=== PATIENT | male | born 1935 | race Caucasian/White ===

== ENCOUNTER → 2017-08-23 08:03 | Outpatient (CLI) | payer OTHER, SELFPAY ==
[2017-08-23 08:15] LABS: Bacteria Urine None Seen; RBC Urine None Seen (0-5/HPF); WBC Urine None Seen (0-5/HPF)
[2017-08-23 09:08] LABS: Add Manual Diff / Slide Review NO; Basophils Percent Auto 0.7 % (0-2); Eosinophils Percent Auto 7.5 % (2-4); Hematocrit 34.1 % (41-53); Hemoglobin 11.3 g/dL (13.5-17.5); Lymphocytes Percent Auto 28.9 % (25-40); Mean Corpuscular Hemoglobin 31.2 PG (26-34); Mean Corpuscular Volume 94.4 fL (80-100); Monocytes Percent Auto 15.7 % (3-14); Neutrophils Absolute Auto 1900 /uL (3000-5900); Neutrophils Percent Auto 47.2 % (50-75); Platelet Count 139 X10^3/uL (150-400); Red Blood Cell Count 3.61 X10^6/uL (4.5-5.9); White Blood Cell Count 4.1 X10^3/uL (4.5-11.0)
[2017-08-23 09:23] LABS: Alanine Aminotransferase 27 IU/L (21-72); Albumin 3.4 g/dL (3.5-5.0); Albumin Globulin Ratio 1.1 (1.0-2.8); Alkaline Phosphatase 67 U/L (38-126); Aspartate Aminotransferase 35 IU/L (17-59); BUN Creatinine Ratio 22.4 (6-22); Bilirubin Total 0.5 mg/dL (0.2-1.3); Blood Urea Nitrogen 65 mg/dL (9-20); Calcium 9.1 mg/dL (8.4-10.2); Carbon Dioxide 24 mmol/L (22-32); Chloride 106 mmol/L (98-107); Estimated Glomerular Filt Rate 20.9 mL/min (>60); Glucose 84 mg/dL (80-110); HEMOLYSIS < 15 (0-50); Phosphorous 4.1 mg/dL (2.3-3.7); Potassium 5.1 mmol/L (3.4-5.1); Sodium 142 mmol/L (137-145); Total Protein 6.4 g/dL (6.3-8.2)
[2017-08-23 09:37] LABS: Vitamin D 25 Hydroxy (D3) 51.7 ng/mL (30.0-100.0)
[2017-08-23 09:53] LABS: Appearance Urine UA CLEAR; Bilirubin Urine UA NEGATIVE (NEGATIVE); Color Urine UA YELLOW; Glucose Urine UA NEGATIVE (Normal); Ketones Urine UA NEGATIVE (NEGATIVE); Leukocyte Esterase Urine UA NEGATIVE (NEGATIVE); Nitrite Urine UA Negative (Negative); Occult Blood Urine UA NEGATIVE (Negative); Protein Urine UA NEGATIVE (Negative); Urobilinogen Urine UA 0.2 E.U./dL (0.2); pH Urine UA 5.5 (4.5-8.0)
[2017-08-23 10:01] LABS: Culture Indicated Urine Cult Not Indicated; Urine Comments Microscopic Normal
[2017-08-23 10:31] LABS: Creatinine Urine Random 76.1 mg/dL; Protein (Total) Urine Random 14 mg/dL (0-12); Protein Creatinine Ratio Urine 0.18 GRAM/24H
== END ==
PROVIDERS: PCP Family Medicine; Visit Provider Specialist
DX: N18.4 Chronic kidney disease, stage 4 (severe) (principal); N11.0 Nonobstructive reflux-associated chronic pyelonephritis; E78.2 Mixed hyperlipidemia; N25.0 Renal osteodystrophy; D63.1 Anemia in chronic kidney disease
CPT/HCPCS: 36415; 80053; 81001; 82306; 82570; 84100; 84156; 85025

== ENCOUNTER → 2017-09-08 13:07 | Outpatient (CLI) | payer OTHER, SELFPAY ==
--- NOTE | 2017-09-08 13:13 | DI.US.S_ITS ---
PROCEDURE: US RENAL COMPLETE INDICATIONS: CHRONIC KIDNEY DISEASE TECHNIQUE: Real-time scanning was performed of the kidneys and bladder, with image documentation. COMPARISON: [facility], , RENAL COMPLETE, 06/21/2014, 9:58. FINDINGS: Kidneys: Kidneys are normal in size. Right kidney measures 10.0 cm long; left kidney measures 10.5 cm long. Right renal cortical thickness is 1.8 cm; left renal cortical thickness is 1.4 cm. Renal cortical echotexture is normal. No hydronephrosis or nephrolithiasis. No suspicious solid mass lesions. Bladder: Pre-void bladder volume is 164 mL. Post-void residual is zero mL. Pre-void images demonstrate no intraluminal masses or stones. On pre-void images, no ureteral jets are noted with color Doppler interrogation. (Of note, ureteral jets may not be detectable in up to 25% of cases due to insufficient differences in specific gravity between ureteral and bladder urine). Miscellaneous: No free pelvic fluid. IMPRESSION: 1. Kidneys appear normal in size, cortical thickness and cortical medullary differentiation. No obstruction. 2. No post voiding bladder residual. Dictated by: Rogerio Hollingsworth M.D. on 09/08/2017 at 15:22 Approved by: Rogerio Hollingsworth M.D. on 09/08/2017 at 15:24
[2017-09-08 14:39] LABS: BUN Creatinine Ratio 22.8 (6-22); Blood Urea Nitrogen 57 mg/dL (9-20); Calcium 9.2 mg/dL (8.4-10.2); Carbon Dioxide 24 mmol/L (22-32); Chloride 104 mmol/L (98-107); Estimated Glomerular Filt Rate 24.8 mL/min (>60); Glucose 189 mg/dL (80-110); HEMOLYSIS < 15 (0-50); Sodium 139 mmol/L (137-145)
== END ==
PROVIDERS: PCP Family Medicine; Visit Provider Specialist
DX: N18.4 Chronic kidney disease, stage 4 (severe) (principal); D63.1 Anemia in chronic kidney disease; I12.9 Hypertensive chronic kidney disease with stage 1 through stage 4 chronic kidney disease, or unspecified chronic kidney disease; E78.2 Mixed hyperlipidemia; N25.0 Renal osteodystrophy
CPT/HCPCS: 36415; 76770; 80048

== ENCOUNTER → 2017-10-12 09:54 | Outpatient (CLI) | payer OTHER, SELFPAY ==
[2017-10-12 10:59] LABS: Hematocrit 33.9 % (41-53); Hemoglobin 11.5 g/dL (13.5-17.5); Mean Corpuscular HGB Conc 33.8 % (30-36); Mean Corpuscular Volume 94.6 fL (80-100); Red Blood Cell Count 3.59 X10^6/uL (4.5-5.9); Red Cell Distribution Width 16.3 % (11.6-14.8)
[2017-10-12 11:06] LABS: Add Manual Diff / Slide Review YES
[2017-10-12 11:09] LABS: Alanine Aminotransferase 24 IU/L (21-72); Albumin 3.3 g/dL (3.5-5.0); Albumin Globulin Ratio 1.2 (1.0-2.8); Alkaline Phosphatase 60 U/L (38-126); Aspartate Aminotransferase 57 IU/L (17-59); BUN Creatinine Ratio 20.4 (6-22); Bilirubin Total 0.7 mg/dL (0.2-1.3); Blood Urea Nitrogen 49 mg/dL (9-20); Calcium 8.7 mg/dL (8.4-10.2); Carbon Dioxide 24 mmol/L (22-32); Chloride 104 mmol/L (98-107); Globulin 2.8 g/dL (1.7-4.1); Glucose 89 mg/dL (80-110); Phosphorous 3.6 mg/dL (2.3-3.7); Potassium 4.7 mmol/L (3.4-5.1); Sodium 137 mmol/L (137-145); Total Protein 6.1 g/dL (6.3-8.2)
[2017-10-12 11:11] LABS: HEMOLYSIS 78 (0-50)
[2017-10-12 11:26] LABS: Vitamin D 25 Hydroxy (D3) 54.5 ng/mL (30.0-100.0)
[2017-10-12 11:52] LABS: Neutrophils Absolute Manual 2950 /uL (3000-5900); Total Cells Counted 100
[2017-10-12 11:55] LABS: Anisocytosis 1+
[2017-10-12 11:56] LABS: Platelet Count 145 X10^3/uL (150-400)
== END ==
PROVIDERS: PCP Family Medicine; Visit Provider Specialist
DX: N18.4 Chronic kidney disease, stage 4 (severe) (principal); D63.1 Anemia in chronic kidney disease; E78.2 Mixed hyperlipidemia; N25.0 Renal osteodystrophy
CPT/HCPCS: 36415; 80053; 82306; 83970; 84100; 85025

== ENCOUNTER → 2017-11-18 10:47 | Outpatient (CLI) | payer OTHER, SELFPAY ==
[2017-11-18 11:44] LABS: Add Manual Diff / Slide Review NO; Basophils Percent Auto 0.6 % (0-2); Eosinophils Percent Auto 3.8 % (2-4); Hematocrit 33.7 % (41-53); Hemoglobin 11.2 g/dL (13.5-17.5); Lymphocytes Percent Auto 16.5 % (25-40); Mean Corpuscular HGB Conc 33.2 % (30-36); Mean Corpuscular Hemoglobin 31.5 PG (26-34); Mean Corpuscular Volume 95.1 fL (80-100); Monocytes Percent Auto 11.1 % (3-14); Neutrophils Absolute Auto 3300 /uL (3000-5900); Platelet Count 168 X10^3/uL (150-400); Red Blood Cell Count 3.54 X10^6/uL (4.5-5.9); Red Cell Distribution Width 16.6 % (11.6-14.8); White Blood Cell Count 4.9 X10^3/uL (4.5-11.0)
[2017-11-18 11:55] LABS: Alanine Aminotransferase 29 IU/L (21-72); Albumin 3.5 g/dL (3.5-5.0); Albumin Globulin Ratio 1.2 (1.0-2.8); Alkaline Phosphatase 67 U/L (38-126); Aspartate Aminotransferase 30 IU/L (17-59); BUN Creatinine Ratio 15.8 (6-22); Bilirubin Total 0.6 mg/dL (0.2-1.3); Blood Urea Nitrogen 38 mg/dL (9-20); Carbon Dioxide 26 mmol/L (22-32); Chloride 106 mmol/L (98-107); Globulin 2.9 g/dL (1.7-4.1); Glucose 111 mg/dL (80-110); HEMOLYSIS < 15 (0-50); Phosphorous 4.1 mg/dL (2.3-3.7); Potassium 4.5 mmol/L (3.4-5.1); Sodium 141 mmol/L (137-145); Total Protein 6.4 g/dL (6.3-8.2)
[2017-11-18 12:09] LABS: Vitamin D 25 Hydroxy (D3) 53.1 ng/mL (30.0-100.0)
== END ==
PROVIDERS: PCP Family Medicine; Visit Provider Specialist
DX: N18.4 Chronic kidney disease, stage 4 (severe) (principal); D63.1 Anemia in chronic kidney disease; E78.2 Mixed hyperlipidemia; N25.0 Renal osteodystrophy; I10 Essential (primary) hypertension
CPT/HCPCS: 36415; 80053; 82306; 83970; 84100; 85025

== ENCOUNTER → 2017-11-19 09:29 | Outpatient (CLI) | payer OTHER, SELFPAY ==
[2017-11-23 14:52] LABS: Parathyroid Hormone Int 114 pg/mL (14-64)
== END ==
PROVIDERS: PCP Family Medicine; Visit Provider Specialist
DX: N18.4 Chronic kidney disease, stage 4 (severe) (principal); D63.1 Anemia in chronic kidney disease; E78.2 Mixed hyperlipidemia
CPT/HCPCS: 83970

== ENCOUNTER → 2017-12-06 10:30 | Outpatient (CLI) | payer OTHER, SELFPAY ==
[2017-12-06 11:01] LABS: Add Manual Diff / Slide Review NO; Basophils Percent Auto 0.6 % (0-2); Hematocrit 33.4 % (41-53); Hemoglobin 11.2 g/dL (13.5-17.5); Lymphocytes Percent Auto 23.6 % (25-40); Mean Corpuscular HGB Conc 33.4 % (30-36); Mean Corpuscular Hemoglobin 31.7 PG (26-34); Neutrophils Absolute Auto 2000 /uL (3000-5900); Neutrophils Percent Auto 51.8 % (50-75); Platelet Count 147 X10^3/uL (150-400); Red Blood Cell Count 3.52 X10^6/uL (4.5-5.9); Red Cell Distribution Width 16.1 % (11.6-14.8); White Blood Cell Count 3.9 X10^3/uL (4.5-11.0)
[2017-12-06 11:33] LABS: Alanine Aminotransferase 27 IU/L (21-72); Albumin 3.7 g/dL (3.5-5.0); Albumin Globulin Ratio 1.3 (1.0-2.8); Alkaline Phosphatase 61 U/L (38-126); Aspartate Aminotransferase 37 IU/L (17-59); BUN Creatinine Ratio 22.6 (6-22); Bilirubin Total 0.5 mg/dL (0.2-1.3); Blood Urea Nitrogen 52 mg/dL (9-20); Calcium 9.6 mg/dL (8.4-10.2); Carbon Dioxide 30 mmol/L (22-32); Chloride 105 mmol/L (98-107); Estimated Glomerular Filt Rate 27.4 mL/min (>60); Globulin 2.9 g/dL (1.7-4.1); Glucose 118 mg/dL (80-110); HEMOLYSIS < 15 (0-50); Phosphorous 4.2 mg/dL (2.3-3.7); Potassium 4.7 mmol/L (3.4-5.1); Sodium 146 mmol/L (137-145); Total Protein 6.6 g/dL (6.3-8.2)
[2017-12-06 11:49] LABS: Vitamin D 25 Hydroxy (D3) 59.5 ng/mL (30.0-100.0)
[2017-12-08 13:52] LABS: Parathyroid Hormone Int 93 pg/mL (14-64)
[2017-12-09 13:06] LABS: Hemoglobin A1C% w Est Avg Glu 6.4 % (4.0-6.0)
== END ==
PROVIDERS: PCP Family Medicine; Visit Provider Specialist
DX: D63.1 Anemia in chronic kidney disease (principal); N18.4 Chronic kidney disease, stage 4 (severe); E78.2 Mixed hyperlipidemia; N25.0 Renal osteodystrophy
CPT/HCPCS: 36415; 80053; 82306; 83036; 83970; 84100; 85025

== ENCOUNTER → 2017-12-13 12:29 | Outpatient (CLI) | payer OTHER, SELFPAY ==
[2017-12-13 13:15] LABS: Hemoglobin A1C% w Est Avg Glu 6.4 % (4.0-6.0)
== END ==
PROVIDERS: PCP Family Medicine; Visit Provider Family Medicine
DX: E11.9 Type 2 diabetes mellitus without complications (principal)
CPT/HCPCS: 36415; 83036

== ENCOUNTER → 2018-04-29 11:09 | Outpatient (CLI) | payer OTHER, SELFPAY ==
[2018-04-29 11:29] LABS: Bacteria Urine None Seen; RBC Urine None Seen (0-5/HPF); WBC Urine None Seen (0-5/HPF)
[2018-04-29 12:14] LABS: Add Manual Diff / Slide Review NO; Basophils Absolute Auto 0 /uL (0-100); Basophils Percent Auto 0.5 % (0-2); Eosinophils Absolute Auto 200 /uL (0-450); Eosinophils Percent Auto 5.7 % (2-4); Hemoglobin 11.8 g/dL (13.5-17.5); Lymphocytes Absolute Auto 900 /uL (1100-4500); Lymphocytes Percent Auto 22.7 % (25-40); Mean Corpuscular HGB Conc 33.8 % (30-36); Mean Corpuscular Hemoglobin 31.5 PG (26-34); Mean Corpuscular Volume 93.1 fL (80-100); Monocytes Absolute Auto 500 /uL (0-900); Monocytes Percent Auto 13.3 % (3-14); Neutrophils Absolute Auto 2300 /uL (1500-7000); Neutrophils Percent Auto 57.8 % (50-75); Platelet Count 140 X10^3/uL (150-400); Red Blood Cell Count 3.76 X10^6/uL (4.5-5.9); Red Cell Distribution Width 15.5 % (11.6-14.8); White Blood Cell Count 3.9 X10^3/uL (4.5-11.0)
[2018-04-29 12:21] LABS: Hemoglobin A1C% w Est Avg Glu 7.8 % (4.0-6.0)
[2018-04-29 12:35] LABS: HEMOLYSIS < 15 (0-50); Iron 94 ug/dL (49-181)
[2018-04-29 12:38] LABS: Alanine Aminotransferase 28 IU/L (21-72); Albumin 3.9 g/dL (3.5-5.0); Albumin Globulin Ratio 1.3 (1.0-2.8); Alkaline Phosphatase 71 U/L (38-126); Aspartate Aminotransferase 36 IU/L (17-59); BUN Creatinine Ratio 23.6 (6-22); Bilirubin Total 0.5 mg/dL (0.2-1.3); Blood Urea Nitrogen 52 mg/dL (9-20); Calcium 9.2 mg/dL (8.4-10.2); Carbon Dioxide 27 mmol/L (22-32); Chloride 102 mmol/L (98-107); Estimated Glomerular Filt Rate 28.8 mL/min (>60); Globulin 2.9 g/dL (1.7-4.1); Glucose 123 mg/dL (80-110); HEMOLYSIS < 15 (0-50); Phosphorous 4.3 mg/dL (2.3-3.7); Potassium 4.3 mmol/L (3.4-5.1); Sodium 139 mmol/L (137-145); Total Protein 6.8 g/dL (6.3-8.2)
[2018-04-29 12:46] LABS: Percent Iron Saturation 30 % (20-50); Total Iron Binding Capacity 314 ug/dL (261-462); Transferrin 251 mg/dL (206-381)
[2018-04-29 13:12] LABS: Ferritin 38.3 ng/mL (17.9-464)
[2018-04-29 13:55] LABS: Appearance Urine UA CLEAR; Bilirubin Urine UA NEGATIVE (NEGATIVE); Color Urine UA YELLOW; Glucose Urine UA NEGATIVE (Negative); Ketones Urine UA NEGATIVE (NEGATIVE); Leukocyte Esterase Urine UA NEGATIVE (NEGATIVE); Nitrite Urine UA NEGATIVE (Negative); Occult Blood Urine UA TRACE-LYSED (Negative); Protein Urine UA 2+ (Negative); Specific Gravity Urine UA 1.015 (1.000-1.035); Urobilinogen Urine UA 0.2 E.U./dL (0.2)
[2018-04-29 14:06] LABS: Culture Indicated Urine Cult Not Indicated; Urine Comments Microscopic Normal
[2018-04-29 16:41] LABS: Creatinine Urine Random 72.1 mg/dL; Protein (Total) Urine Random 95 mg/dL (0-12); Protein Creatinine Ratio Urine 1.31 GRAM/24H
[2018-04-30 14:20] LABS: Parathyroid Hormone Int 122 pg/mL (14-64)
== END ==
PROVIDERS: PCP Family Medicine; Visit Provider Specialist
DX: N18.4 Chronic kidney disease, stage 4 (severe) (principal); E78.2 Mixed hyperlipidemia; N25.0 Renal osteodystrophy; D63.1 Anemia in chronic kidney disease
CPT/HCPCS: 36415; 80053; 81001; 82306; 82570; 82728; 83036; 83540; 83550; 83970; 84100; 84156; 85025

== ENCOUNTER → 2018-08-09 11:29 | Outpatient (CLI) | payer OTHER, SELFPAY ==
[2018-08-09 12:52] LABS: Add Manual Diff / Slide Review NO; Basophils Absolute Auto 0 /uL (0-100); Basophils Percent Auto 0.7 % (0-2); Eosinophils Absolute Auto 300 /uL (0-450); Eosinophils Percent Auto 6.4 % (2-4); Hematocrit 33.5 % (41-53); Hemoglobin 11.3 g/dL (13.5-17.5); Lymphocytes Absolute Auto 800 /uL (1100-4500); Lymphocytes Percent Auto 19.3 % (25-40); Mean Corpuscular HGB Conc 33.8 % (30-36); Mean Corpuscular Hemoglobin 32.2 PG (26-34); Mean Corpuscular Volume 95.2 fL (80-100); Monocytes Absolute Auto 600 /uL (0-900); Monocytes Percent Auto 14.3 % (3-14); Neutrophils Absolute Auto 2500 /uL (1500-7000); Neutrophils Percent Auto 59.3 % (50-75); Platelet Count 136 X10^3/uL (150-400); Red Blood Cell Count 3.52 X10^6/uL (4.5-5.9); Red Cell Distribution Width 15.5 % (11.6-14.8); White Blood Cell Count 4.1 X10^3/uL (4.5-11.0)
[2018-08-09 13:08] LABS: Appearance Urine UA CLEAR; Bilirubin Urine UA NEGATIVE (NEGATIVE); Color Urine UA YELLOW; Glucose Urine UA NEGATIVE (Negative); Ketones Urine UA NEGATIVE (NEGATIVE); Leukocyte Esterase Urine UA NEGATIVE (NEGATIVE); Nitrite Urine UA NEGATIVE (Negative); Occult Blood Urine UA TRACE-INTACT (Negative); Protein Urine UA 2+ (Negative); Urobilinogen Urine UA 0.2 E.U./dL (0.2); pH Urine UA 6.5 (4.5-8.0)
[2018-08-09 13:16] LABS: HEMOLYSIS < 15 (0-50); Iron 91 ug/dL (49-181)
[2018-08-09 13:22] LABS: Amorphous Sediment Urine 1+; Bacteria Urine Occasional (0-1); Mucus Urine 1+ (Negative); RBC Urine 0-1/HPF (0-5/HPF); Squamous Epithelial Cell Urine 1-5 /HPF (0-5/HPF); WBC Urine 1-5/HPF (0-5/HPF)
[2018-08-09 13:23] LABS: Culture Indicated Urine Cult Not Indicated
[2018-08-09 13:30] LABS: Percent Iron Saturation 30 % (20-50); Total Iron Binding Capacity 301 ug/dL (261-462); Transferrin 223 mg/dL (206-381)
[2018-08-09 14:38] LABS: Hemoglobin A1C% w Est Avg Glu 7.5 % (4.0-6.0)
[2018-08-09 16:19] LABS: Creatinine Urine Random 64.2 mg/dL; Protein (Total) Urine Random 124 mg/dL (0-12); Protein Creatinine Ratio Urine 1.93 GRAM/24H
[2018-08-09 16:52] LABS: Alanine Aminotransferase 20 IU/L (21-72); Albumin 3.7 g/dL (3.5-5.0); Albumin Globulin Ratio 1.3 (1.0-2.8); Alkaline Phosphatase 72 U/L (38-126); Aspartate Aminotransferase 31 IU/L (17-59); BUN Creatinine Ratio 20.5 (6-22); Bilirubin Total 0.6 mg/dL (0.2-1.3); Blood Urea Nitrogen 43 mg/dL (9-20); Calcium 9.3 mg/dL (8.4-10.2); Carbon Dioxide 29 mmol/L (22-32); Chloride 106 mmol/L (98-107); Estimated Glomerular Filt Rate 30.3 mL/min (>60); Globulin 2.8 g/dL (1.7-4.1); Glucose 129 mg/dL (80-110); HEMOLYSIS < 15 (0-50); Phosphorous 3.6 mg/dL (2.3-3.7); Potassium 4.6 mmol/L (3.4-5.1); Sodium 142 mmol/L (137-145); Total Protein 6.5 g/dL (6.3-8.2)
[2018-08-09 17:26] LABS: Vitamin D 25 Hydroxy (D3) 40.8 ng/mL (30.0-100.0)
[2018-08-09 17:27] LABS: Ferritin 45.3 ng/mL (17.9-464)
[2018-08-10 13:54] LABS: Parathyroid Hormone Int 129 pg/mL (14-64)
== END ==
PROVIDERS: Family Provider Family Medicine; PCP Family Medicine; Visit Provider Specialist
DX: E11.22 Type 2 diabetes mellitus with diabetic chronic kidney disease (principal); N18.4 Chronic kidney disease, stage 4 (severe); E78.2 Mixed hyperlipidemia; N25.0 Renal osteodystrophy; D63.1 Anemia in chronic kidney disease
CPT/HCPCS: 36415; 80053; 81001; 82306; 82570; 82728; 83036; 83540; 83550; 83970; 84100; 84156; 85025

== ENCOUNTER → 2018-10-10 14:25 | Outpatient (CLI) | payer OTHER, SELFPAY ==
[2018-10-10 15:25] LABS: BUN Creatinine Ratio 20.5 (6-22); Blood Urea Nitrogen 45 mg/dL (9-20); Calcium 8.9 mg/dL (8.4-10.2); Carbon Dioxide 26 mmol/L (22-32); Chloride 105 mmol/L (98-107); Estimated Glomerular Filt Rate 28.7 mL/min (>60); Glucose 158 mg/dL (80-110); HEMOLYSIS < 15 (0-50); Potassium 4.5 mmol/L (3.4-5.1); Sodium 139 mmol/L (137-145)
== END ==
PROVIDERS: Family Provider Family Medicine; PCP Family Medicine; Visit Provider Specialist
DX: N18.4 Chronic kidney disease, stage 4 (severe) (principal); D63.1 Anemia in chronic kidney disease; E78.2 Mixed hyperlipidemia; N25.0 Renal osteodystrophy
CPT/HCPCS: 36415; 80048

== ENCOUNTER → 2018-10-14 15:02 | Outpatient (CLI) | payer OTHER, SELFPAY ==
--- NOTE | 2018-10-14 15:06 | DI.RAD.S_ITS ---
PROCEDURE: XR CHEST 2V INDICATIONS: WHEEZING,EDEMA OF LOWER EXTREMITY,SOB TECHNIQUE: 2 views of the chest were acquired. COMPARISON: [facility], , CHEST 1 VIEW, 06/20/2014, 16:53. FINDINGS: Surgical changes and devices: None. Lungs and pleura: Low lung volumes with scattered subsegmental atelectasis/scarring. No pleural effusions or pneumothorax. Mediastinum: Mediastinal contours are normal. Heart size is normal. Bones and chest wall: No suspicious bony abnormalities. Soft tissues appear unremarkable. IMPRESSION: No acute disease Dictated by: Vamshi Flores M.D. on 10/14/2018 at 16:43 Approved by: Vamshi Flores M.D. on 10/14/2018 at 16:44
== END ==
PROVIDERS: Family Provider Family Medicine; PCP Family Medicine; Visit Provider Family Medicine
DX: R06.02 Shortness of breath (principal); R06.00 Dyspnea, unspecified; R06.2 Wheezing; R60.0 Localized edema
CPT/HCPCS: 36415; 71046; 80053; 83880; 85025

== ENCOUNTER → 2018-10-14 17:42 | Outpatient (CLI) | payer OTHER, SELFPAY ==
[2018-10-14 18:10] LABS: Add Manual Diff / Slide Review NO; Basophils Absolute Auto 0 /uL (0-100); Basophils Percent Auto 0.5 % (0-2); Eosinophils Absolute Auto 300 /uL (0-450); Eosinophils Percent Auto 6.5 % (2-4); Hematocrit 33.3 % (41-53); Hemoglobin 11.1 g/dL (13.5-17.5); Lymphocytes Absolute Auto 900 /uL (1100-4500); Lymphocytes Percent Auto 20.1 % (25-40); Mean Corpuscular HGB Conc 33.3 % (30-36); Mean Corpuscular Hemoglobin 31.8 PG (26-34); Mean Corpuscular Volume 95.6 fL (80-100); Monocytes Absolute Auto 700 /uL (0-900); Monocytes Percent Auto 15.2 % (3-14); Neutrophils Absolute Auto 2600 /uL (1500-7000); Neutrophils Percent Auto 57.7 % (50-75); Platelet Count 146 X10^3/uL (150-400); Red Blood Cell Count 3.48 X10^6/uL (4.5-5.9); Red Cell Distribution Width 15.9 % (11.6-14.8); White Blood Cell Count 4.5 X10^3/uL (4.5-11.0)
[2018-10-14 18:21] LABS: Alanine Aminotransferase 18 IU/L (21-72); Albumin 3.6 g/dL (3.5-5.0); Albumin Globulin Ratio 1.3 (1.0-2.8); Alkaline Phosphatase 76 U/L (38-126); Aspartate Aminotransferase 25 IU/L (17-59); BUN Creatinine Ratio 18.7 (6-22); Bilirubin Total 0.4 mg/dL (0.2-1.3); Blood Urea Nitrogen 43 mg/dL (9-20); Calcium 9.3 mg/dL (8.4-10.2); Carbon Dioxide 27 mmol/L (22-32); Chloride 107 mmol/L (98-107); Estimated Glomerular Filt Rate 27.3 mL/min (>60); Globulin 2.8 g/dL (1.7-4.1); Glucose 160 mg/dL (80-110); HEMOLYSIS < 15 (0-50); Sodium 141 mmol/L (137-145); Total Protein 6.4 g/dL (6.3-8.2)
[2018-10-14 18:22] LABS: Potassium 5.4 mmol/L (3.4-5.1)
[2018-10-14 18:26] LABS: B Type Natriuretic Peptide 121 (<100)
== END ==
PROVIDERS: Family Provider Family Medicine; PCP Family Medicine; Visit Provider Family Medicine
DX: R06.00 Dyspnea, unspecified (principal)
CPT/HCPCS: 36415; 80053; 83880; 85025

== ENCOUNTER → 2018-11-03 07:53 | Outpatient (CLI) | payer OTHER, SELFPAY ==
--- NOTE | 2018-11-03 07:56 | DI.ECHO.S_ITS ---
[place] [facility]---------+ [facility] +---------+ : : [address] : : : : [id number] : : : : Phone: [phone]+ Echocardiogram Report + + :Name: LUIS ALBERTO DE LA ROSA Study Date: 11/03/2018 Height: 72 in : :[facility] Exam Location: [facility] Weight: 280 lb : : Gender: Male BSA: 2.5 m2 : :: 1935 Age: 83 yrs BP: 136/60 mmHg: :Reason For Study: CHF : : Performed By: Anil Antonio : :Referring: AISHWARYA MARCELINO : + + Interpretation Summary 1) Normal left ventricular thickness, size, wall motion, and systolic function (EF 60-65%). 2) Normal right ventricular size and function. 3) No significant valvular stenosis or regurgitation. 4) Compared to the Echo done 01/12/2012, no significant change. Procedure: A two-dimensional transthoracic echocardiogram with color flow and Doppler was performed. The study quality was technically adequate. Comparison is made with the echocardiogram of 01/12/12. The subcostal views were difficult to obtain and are suboptimal in quality. The suprasternal notch views were difficult to obtain and are suboptimal in quality. The patient was in normal sinus rhythm during the exam. Left Ventricle: The left ventricle is normal in size. There is normal left ventricular wall thickness. The ejection fraction is estimated to be 60-65%. There are no focal wall motion abnormalities. Right Ventricle: The right ventricle is at the upper limits of normal in size. The right ventricular systolic function is normal. Atria: The left atrium is mildly dilated. Right atrial size is normal. The interatrial septum is intact with no evidence for an atrial septal defect. Mitral Valve: There is mild mitral annular calcification. A mobile structure is noted on the mitral valve chordae measuring approximately 5 mm x 12 mm. This was also seen on the last exam. There is trace mitral regurgitation. Aortic Valve: The aortic valve is trileaflet. The aortic valve is mildly calcified. There is discrete nodular thickening of the non- coronary cusp. There is no aortic valve stenosis. No aortic regurgitation is present. Tricuspid Valve: The tricuspid valve is normal in structure and function. There is trace tricuspid regurgitation. Right ventricular systolic pressure is estimated to be 21 mmHg plus the clinically estimated CVP which cannot be estimated on this exam. Pulmonic Valve: The pulmonic valve is normal in structure and function. There is trace pulmonic regurgitation. Great Vessels: The aortic root is normal size. The ascending aorta is at the upper limits of normal in size. The pulmonary artery is normal size. The inferior vena cava was not well visualized. Pericardium/ Pleura There is no pericardial effusion. There is no pleural effusion. MMode/2D Measurements & Calculations LVIDd: 5.2 cm LVOT diam: 2.4 cm LVIDs: 3.3 cm Ao root diam: 3.2 cm FS: 35.1 % Aortic Jxn: 2.9 cm EPSS: 0.90 cm asc Aorta Diam: 3.5 cm IVSd: 1.1 cm LVPWd: 1.0 cm LV becerra. diameter/BSA (cm/m^2): 2.1 LV sys. diameter/BSA (cm/m^2): 1.4 LA dimension: 4.8 cm RA long axis: 5.8 cm LA A2 area: 27.1 cm2 RA area: 22.8 cm2 LA A4 area: 27.3 cm2 RA vol: 75.9 ml LA length (vol): 6.8 cm RA : 30.9 ml/m2 LA vol: 92.8 ml LA vol index: 37.8 ml/m2 RVD1 (basal): 4.0 cm RVD2 (mid): 4.5 cm Doppler Measurements & Calculations Ao V2 max: 168.2 cm/sec LVOT Max Galen: 120.5 cm/sec Ao V2 mean: 122.4 cm/sec LV V1 max P.8 mmHg Ao max P.3 mmHg LV V1 VTI: 28.8 cm Ao mean P.6 mmHg ROMAN(I,D): 3.0 cm2 Ao V2 VTI: 43.4 cm ROMAN(V,D): 3.2 cm2 sev ratio: 0.66 ROMAN indexed to BSA (cm^2/m^2): 1.2 MV E max galen: 130.7 cm/sec TR max galen: 229.0 cm/sec MV A max galen: 141.0 cm/sec TR max P.0 mmHg MV E/A: 0.93 PA V2 max: 114.9 cm/sec Med Peak E' Galen: 5.7 cm/sec PA V2 mean: 90.2 cm/sec E/E' med: 23.0 PA mean P.4 mmHg Lat Peak E' Galen: 8.6 cm/sec PA pr(Accel): 19.1 mmHg E/E' lat: 15.1 PA Accel Time: 0.12 sec E/e' average: 19.1 MV dec time: 0.19 sec SV(LVOT): 130.5 ml Reading Physician:02:32 PM
== END ==
PROVIDERS: Family Provider Family Medicine; PCP Family Medicine; Visit Provider Family Medicine
DX: R06.00 Dyspnea, unspecified (principal)
CPT/HCPCS: 93306

== ENCOUNTER → 2018-11-07 12:50 | Outpatient (CLI) | payer OTHER, SELFPAY ==
--- NOTE | 2018-11-11 16:39 | PM.PFT.1 ---
Pulmonary Function Test Referral & Results Date Patient Seen: 11/07/18 Requesting provider: Jeremiah Kiser Results: The spirometry demonstrates an FVC of 2.19 L which is 57% of predicted. The FEV1 was measured at 1.61 L which is 56% of predicted. The FEV1/FVC ratio was 73 which is 100% of predicted. Following the administration of bronchodilator there was a 47% improvement in FEF 25-75%. Lung volumes show an SVC of 2.45 L which is 68% of predicted. The diffusing capacity was measured at 16.34 which is 43% of predicted. The maximum voluntary ventilation was reduced Interpretation: This study demonstrates moderate obstructive lung disease with limited evidence of benefit after bronchodilator, particularly small airway flow based on improvement in FEF 25-75% There is also mild reduction in lung volumes suggesting mild restrictive lung disease There is also significant reduction in diffusing capacity suggesting significant disease at the capillary alveolar level
== END ==
PROVIDERS: Family Provider Family Medicine; PCP Family Medicine; Visit Provider Family Medicine
DX: R06.02 Shortness of breath (principal)
CPT/HCPCS: 94060; 94726; 94729

== ENCOUNTER → 2018-11-17 14:01 | Outpatient (CLI) | payer OTHER, SELFPAY ==
--- NOTE | 2018-11-17 14:05 | DI.CT.S_ITS ---
PROCEDURE: CT CHEST HIGH RESOLUTION INDICATIONS: new dyspnea, PFTs show mixed obstruct/restriction w low DLCO TECHNIQUE: Noncontrast 1.0 and 5.0 mm thick contiguous axial sections from the pulmonary apex to the posterior costophrenic angles, with 7 mm thick coronal and sagittal MIP reformats. 1 mm thick dynamic expiratory images acquired through the upper, mid, and lower lungs. 1.0 mm thick axial sections acquired from the ashleigh to the posterior costophrenic angles in the prone end-inspiration position. For radiation dose reduction, the following was used: automated exposure control, adjustment of mA and/or kV according to patient size. COMPARISON: [facility], CR, CHEST 2 VIEW, 10/25/2013, 13:54. [facility], , CHEST 1 VIEW, 01/11/2012, 14:43. [facility], , CHEST 1 VIEW, 06/20/2014, 16:53. [facility], CR, XR CHEST 2 VIEWS, 11/11/2017, 11:43. FINDINGS: Image quality: Excellent. Lungs: Minimal linear atelectasis in each lung base, greater on the left than the right associated with chronic mild elevation of the left hemidiaphragm Pleura: No pleural effusions or pneumothorax. Mediastinum: Heart size is normal. No pericardial effusion. Thoracic aorta and central pulmonary arteries are normal in size. Esophagus is normal in caliber. Bones and chest wall: No suspicious bony lesions. No vertebral body compression fractures. Abdomen: Visualized upper abdominal solid organs and bowel loops appear normal. IMPRESSION: No interstitial lung disease is found, no pulmonary fibrosis is identified. There is mild basilar atelectasis seen, left greater than right, associated with asymmetric mild elevation of the left hemidiaphragm. Dictated by: Travis Garcia M.D. on 11/17/2018 at 16:42 Approved by: Travis Garcia M.D. on 11/17/2018 at 16:44
== END ==
PROVIDERS: Family Provider Family Medicine; PCP Family Medicine; Visit Provider Family Medicine
DX: R06.00 Dyspnea, unspecified (principal); J98.11 Atelectasis
CPT/HCPCS: 71250

== ENCOUNTER → 2018-12-08 14:11 | Outpatient (CLI) | payer OTHER, SELFPAY ==
[2018-12-08 14:45] LABS: Add Manual Diff / Slide Review NO; Basophils Absolute Auto 0 /uL (0-100); Basophils Percent Auto 0.7 % (0-2); Eosinophils Absolute Auto 300 /uL (0-450); Eosinophils Percent Auto 7.3 % (2-4); Hematocrit 34.9 % (41-53); Hemoglobin 11.7 g/dL (13.5-17.5); Lymphocytes Absolute Auto 900 /uL (1100-4500); Lymphocytes Percent Auto 21.1 % (25-40); Mean Corpuscular HGB Conc 33.5 % (30-36); Mean Corpuscular Hemoglobin 32.2 PG (26-34); Mean Corpuscular Volume 96.1 fL (80-100); Monocytes Absolute Auto 600 /uL (0-900); Neutrophils Absolute Auto 2400 /uL (1500-7000); Neutrophils Percent Auto 56.9 % (50-75); Platelet Count 147 X10^3/uL (150-400); Red Blood Cell Count 3.63 X10^6/uL (4.5-5.9); Red Cell Distribution Width 15.2 % (11.6-14.8); White Blood Cell Count 4.3 X10^3/uL (4.5-11.0)
[2018-12-08 15:30] LABS: Alanine Aminotransferase 22 IU/L (21-72); Albumin 3.7 g/dL (3.5-5.0); Albumin Globulin Ratio 1.3 (1.0-2.8); Alkaline Phosphatase 74 U/L (38-126); Aspartate Aminotransferase 28 IU/L (17-59); Bilirubin Total 0.6 mg/dL (0.2-1.3); Blood Urea Nitrogen 60 mg/dL (9-20); Calcium 9.5 mg/dL (8.4-10.2); Carbon Dioxide 30 mmol/L (22-32); Chloride 99 mmol/L (98-107); Estimated Glomerular Filt Rate 24.8 mL/min (>60); Globulin 2.9 g/dL (1.7-4.1); Glucose 154 mg/dL (80-110); HEMOLYSIS < 15 (0-50); Phosphorous 3.9 mg/dL (2.3-3.7); Potassium 4.6 mmol/L (3.4-5.1); Sodium 140 mmol/L (137-145); Total Protein 6.6 g/dL (6.3-8.2)
[2018-12-08 15:49] LABS: Vitamin D 25 Hydroxy (D3) 56.7 ng/mL (30.0-100.0)
[2018-12-10 14:43] LABS: Parathyroid Hormone Int 185 pg/mL (14-64)
== END ==
PROVIDERS: Family Provider Family Medicine; PCP Family Medicine; Visit Provider Specialist
DX: N18.4 Chronic kidney disease, stage 4 (severe) (principal); D63.1 Anemia in chronic kidney disease; E78.2 Mixed hyperlipidemia; N25.0 Renal osteodystrophy
CPT/HCPCS: 36415; 80053; 82306; 83970; 84100; 85025

== ENCOUNTER 2019-04-08 20:15 | Emergency (ER) | payer OTHER, SELFPAY ==
--- NOTE | 2019-04-08 20:34 | ED_ITS ---
HPI - General Adult General Chief complaint: GI Bleed Stated complaint: Blood in his stool,ulcer history Time Seen by Provider: 04/08/19 20:25 Source: patient Mode of arrival: Ambulatory Limitations: no limitations History of Present Illness HPI narrative: 83-year-old male with a history of insulin-dependent diabetes also has a history of gastric ulcers here for evaluation of 1-2 days of black/dark colored stools. No pain with bowel movements. No vomiting. Does not drink alcohol. No use of nonsteroidal anti-inflammatories. Does have a history of hemorrhoids. States that he has had a colonoscopy in the past but was 10-15 years ago. No abdominal pain. Related Data Home Medications Medication Instructions Recorded Confirmed [[facility]] #0 09/11/16 03/21/19 oxybutynin chloride 5 mg tablet 5 mg PO BID PRN 01/07/18 03/21/19 garlic 1,000 mg capsule 1,000 mg PO QPC 04/13/18 03/21/19 ferrous sulfate 324 mg (65 mg 324 mg PO DAILY tab 09/20/18 03/21/19 iron) tablet,delayed release doxycycline hyclate 100 mg capsule 100 mg PO BID 12/20/18 03/21/19 albuterol sulfate 90 mcg/actuation 2 puff INHALATION Q4-6H PRN gram 03/21/19 03/21/19 aerosol inhaler insulin NPH isoph U-100 human 100 See Rx Instructions SUBCUT DAILY 03/21/19 03/21/19 unit/mL subcutaneous suspension vial tiotropium bromide 2.5 2 puff INHALATION DAILY 03/21/19 03/21/19 mcg/actuation mist for inhalation Previous Rx's Medication Instructions Recorded aspirin 81 mg PO QDAY #30 tab 08/31/16 cholecalciferol (vitamin D3) 2,000 unit PO QDAY #30 cap 08/31/16 [Vitamin D3] diclofenac sodium [Voltaren] 1 tank TOPICAL BID #100 gm 08/31/16 pyridoxine (vitamin B6) 100 mg PO QDAY #30 tab 08/31/16 Lancets ea SEE INSTRUCTIONS #100 12/16/16 Syringes #100 each 07/22/17 fluticasone propionate [Flonase 1 spray INTRANASAL QDAY #1 bot 09/13/17 Allergy Relief] BD insulin pen needle UF short #100 each 12/06/17 Glucose: Test Strips-onetouch See Rx Instructions .ROUTE 02/25/18 .COMPLEX #150 amlodipine 2.5 mg tablet 2.5 mg PO DAILY #90 tab 09/20/18 fexofenadine 180 mg tablet 180 mg PO DAILY PRN #30 tab 09/27/18 inhalational spacing device #1 each 10/18/18 ipratropium bromide 0.03 % nasal 1 spray NASAL BEDTIME #30 ml 10/18/18 spray spirometers and accessories #1 each 10/18/18 carvedilol 25 mg tablet 25 mg PO BID #60 tab 10/28/18 torsemide 20 mg tablet 40 mg PO QAM #60 tab 11/08/18 famotidine [Pepcid] 20 mg PO DAILY #30 tab 04/08/19 Allergies Allergy/AdvReac Type Severity Reaction Status Date / Time metolazone [METOLAZONE] Allergy Severe VERY DIZZY Unverified 03/21/19 13:21 morphine [MORPHINE] Allergy Unknown UNKNOWN Unverified 03/21/19 13:21 Penicillins [PENICILLINS] Allergy Unknown UNKNOWN Unverified 03/21/19 13:21 NSAIDS (Non-Steroidal AdvReac Severe RENAL Unverified 03/21/19 13:21 Anti-Inflamma INSUFF [NSAIDS (NON-STEROIDAL ANTI-INFLAMMA] Review of Systems Constitutional Constitutional: Denies fever(s) and Denies headache(s) ENT Ears, Nose, Mouth, and Throat: Denies headache(s) Cardiovascular Cardiovascular: Denies chest pain and Denies dyspnea Respiratory Respiratory: Denies dyspnea Gastrointestinal Gastrointestinal: Denies abdominal pain, Reports melena, Denies hematochezia, Denies nausea and Denies vomiting Genitourinary Genitourinary: Denies dysuria Musculoskeletal Musculoskeletal: Denies myalgias and Denies arthralgias Neurologic Neurologic: Denies behavioral changes and Denies headache(s) Psychiatric Psychiatric: Denies behavioral changes Hematologic/Lymphatic Hematologic/Lymphatic: Denies easy bleeding and Denies easy bruising Patient History Medical History Anemia (Chronic 2009) Diabetes mellitus (Chronic 1997) Diabetic nephropathy (Chronic) Foot pain (Chronic 2002) Gastric ulcer (Resolved 1966) Hearing loss (Chronic 1935) Hypertension (Chronic) Infectious disease (Resolved 2011) Kidney failure (Chronic) Lumbar spine pain (Chronic) Osteomyelitis (Resolved 2011) Peripheral neuropathy (Chronic 2002) Prostate cancer (Resolved 1998) Urinary incontinence (Chronic) Social History Smoking Status: Former smoker Tobacco: How many years used: 30 Smoking Status: Former smoker (average 1 1/2 PPD) Exam Initial Vital Signs Initial Vital Signs: Vital Signs Temperature 98.6 F 04/08/19 20:40 Pulse Rate 65 04/08/19 20:40 Respiratory Rate 16 04/08/19 20:40 Blood Pressure 159/73 H 04/08/19 20:40 Pulse Oximetry 96 04/08/19 20:40 Const General: cooperative and comfortable HENMT Head: normal to inspection and normocephalic Resp Effort & Inspection: normal respiratory effort Auscultation: clear to auscultation bilaterally Cardio Rate: regular rate Rhythm: regular rhythm GI Inspection: non-distended Palpation: soft and No firm Rectal Exam: No abnormal sphincter tone, heme positive stool and No hemorrhoids Neuro General: alert, awake and oriented x3 Cognition: normal cognition Speech: speech normal Extrem General: normal to inspection and capillary refill normal Psych Appearance: grossly normal Course Orders Ordered: ED Orders 04/08/19 21:30 Basic Metabolic Panel Stat Complete Blood Count AUTO DIFF Stat Discontinued Medications Pantoprazole Sodium (Protonix) 40 mg IV NOW ONE Stop: 04/08/19 20:52 Last Admin: 04/08/19 21:32 Dose: 40 mg Documented by: SAPPHIRE Vital Signs Vital signs: Vital Signs - 8 hr 04/08/19 20:40 04/08/19 21:38 Temperature 98.6 F Pulse Rate 65 78 Respiratory Rate 16 Blood Pressure 159/73 H Blood Pressure [Left Arm] 140/62 Pulse Oximetry 96 96 Medical Decision Making Lab Data Lab results reviewed: Yes I reviewed the patient's lab results. Result diagrams: 04/08/19 21:30 04/08/19 21:30 Labs: Lab Results 04/08/19 04/08/19 Range/Units 21:30 21:30 WBC 4.9 (4.5-11.0) X10^3/uL RBC 3.55 L (4.5-5.9) X10^6/uL Hgb 11.4 L (13.5-17.5) g/dL Hct 33.7 L (41-53) % MCV 94.9 (80-100) fL MCH 32.0 (26-34) PG MCHC 33.8 (30-36) % RDW 15.5 H (11.6-14.8) % Plt Count 163 (150-400) X10^3/uL Neut % (Auto) 60.1 (50-75) % Lymph % (Auto) 15.7 L (25-40) % [place] % (Auto) 17.1 H (3-14) % Eos % (Auto) 6.4 H (2-4) % Baso % (Auto) 0.7 (0-2) % Neut # (Auto) 2900 (7953-3404) /uL Lymph # (Auto) 800 L (1949-3641) /uL [place] # (Auto) 800 (0-900) /uL Eos # (Auto) 300 (0-450) /uL Baso # (Auto) 0 (0-100) /uL Sodium 140 (137-145) mmol/L Potassium 4.2 (3.4-5.1) mmol/L Chloride 106 (98-107) mmol/L Carbon Dioxide 25 (22-32) mmol/L BUN 64 H (9-20) mg/dL Creatinine 2.60 H (0.66-1.25) mg/dL Estimated GFR 23.7 L (>60) mL/min BUN/Creatinine Ratio 24.6 H (6-22) Glucose 223 H (80-110) mg/dL Calcium 9.2 (8.4-10.2) mg/dL Point of Care Testing Stool Occult Blood Negative Point of care testing: Point of Care Testing Stool Occult Blood Negative [facility] Narrative Medical decision making narrative: Creatinine is at baseline, patient is slightly anemic when also at baseline. He was weakly Hemoccult positive. Her no alcohol use. No anti-inflammatory use. What he describes is somewhat concerning for upper GI issue. He did recently start some antibiotics for cellulitis in his lower extremities. Not on anticoagulation. He is also going to hold his aspirin. Was given a prescription for Pepcid. He will start taking this. On Wednesday is going to contact his primary doctor about a referral to see GI for further evaluation. He was given return precautions and follow-up instructions. No indication for emergent GI/surgery intervention. Patient expressed understanding and agreement with plan. Discharge Plan Departure Patient Disposition: Home Clinical Impression: Melena Discharge Date/Time: 04/08/19 22:00 Instructions: DI for Gastric Ulcer, Gastrointestinal Bleeding Activity Restrictions/Additional Instructions: Recommend that on Wednesday you contact your primary doctor's office to discuss the referral to have a endoscopy and colonoscopy. Start taking the Pepcid as directed. Also recommend you take the antibiotics with food. Return to the emergency department for any new or worsening symptoms Prescriptions: New famotidine [Pepcid] 20 mg tablet 20 mg PO DAILY Qty: 30 RF: 0 No Action ferrous sulfate 324 mg (65 mg iron) tablet,delayed release (DR/EC) 324 mg PO DAILY RF: 0 amlodipine 2.5 mg tablet 2.5 mg PO DAILY Qty: 90 RF: 3 Humulin N NPH U-100 Insulin 100 unit/mL suspension See Rx Instructions SUBCUT DAILY RF: 0 Spiriva Respimat 2.5 mcg/actuation mist 2 puff INHALATION DAILY RF: 0 albuterol sulfate 90 mcg/actuation HFA aerosol inhaler 2 puff INHALATION Q4-6H PRN (Reason: shortness of breath or wheezing) RF: 0 doxycycline hyclate 100 mg capsule 100 mg PO BID RF: 0 (DME) E-Z Spacer spacer See Dose Instructions .ROUTE .MEDSUPPLY Qty: 1 RF: 0 (DME) spirometers and accessories device See Dose Instructions .ROUTE .MEDSUPPLY Qty: 1 RF: 0 ipratropium bromide 0.03 % spray,non-aerosol 1 spray NASAL BEDTIME Qty: 30 RF: 0 aspirin 81 MG tablet,delayed release (DR/EC) 81 mg PO QDAY Qty: 30 RF: 0 diclofenac sodium [Voltaren] 1 % gel 1 tank Topical BID Qty: 100 RF: 0 pyridoxine (vitamin B6) 100 MG tablet 100 mg PO QDAY Qty: 30 RF: 11 cholecalciferol (vitamin D3) [Vitamin D3] 2,000 UNIT capsule 2,000 unit PO QDAY Qty: 30 RF: 11 [st [employer]] Qty: 0 RF: 0 Lancets SEE INSTRUCTIONS Qty: 100 RF: 2 (DME) Syringes 0.3ml 29 gauge 0 .Route .MEDSUPPLY Qty: 100 RF: PRN fluticasone propionate [Flonase Allergy Relief] 50 mcg/actuation spray,suspension 1 spray Intranasal QDAY Qty: 1 RF: 11 (DME) BD insulin pen needle UF short 31 gauge 07/28 Qty: 100 RF: 5 Glucose: Test Strips-onetouch See Rx Instructions .ROUTE .COMPLEX Qty: 150 RF: 2 fexofenadine 180 mg tablet 180 mg PO DAILY PRN (Reason: allergy symptoms) Qty: 30 RF: 5 carvedilol 25 mg tablet 25 mg PO BID Qty: 60 RF: 5 torsemide 20 mg tablet 40 mg PO QAM Qty: 60 RF: 2 garlic [garlic oil] 1,000 mg capsule 1,000 mg PO QPC RF: 0 oxybutynin chloride 5 mg tablet 5 mg PO BID PRNRF: 0 Referrals: Nieves Lewis MD [Primary Care Provider] -
[2019-04-08 20:40] VITALS: BP 159/73; PULSE 65; RESP 16; TEMP 37; O2SAT 96; BMI 37.5
[2019-04-08] MEDS: PANTOPRAZOLE 40 MG VIAL IV (21:32)
[2019-04-08 21:38] VITALS: BP 140/62; PULSE 78; O2SAT 96
[2019-04-08 21:38] LABS: Add Manual Diff / Slide Review NO; Basophils Absolute Auto 0 /uL (0-100); Basophils Percent Auto 0.7 % (0-2); Eosinophils Absolute Auto 300 /uL (0-450); Eosinophils Percent Auto 6.4 % (2-4); Hematocrit 33.7 % (41-53); Hemoglobin 11.4 g/dL (13.5-17.5); Lymphocytes Absolute Auto 800 /uL (1100-4500); Lymphocytes Percent Auto 15.7 % (25-40); Mean Corpuscular HGB Conc 33.8 % (30-36); Mean Corpuscular Volume 94.9 fL (80-100); Monocytes Absolute Auto 800 /uL (0-900); Monocytes Percent Auto 17.1 % (3-14); Neutrophils Absolute Auto 2900 /uL (1500-7000); Neutrophils Percent Auto 60.1 % (50-75); Platelet Count 163 X10^3/uL (150-400); Red Blood Cell Count 3.55 X10^6/uL (4.5-5.9); Red Cell Distribution Width 15.5 % (11.6-14.8); White Blood Cell Count 4.9 X10^3/uL (4.5-11.0)
[2019-04-08 21:44] LABS: BUN Creatinine Ratio 24.6 (6-22); Blood Urea Nitrogen 64 mg/dL (9-20); Calcium 9.2 mg/dL (8.4-10.2); Carbon Dioxide 25 mmol/L (22-32); Chloride 106 mmol/L (98-107); Estimated Glomerular Filt Rate 23.7 mL/min (>60); Glucose 223 mg/dL (80-110); HEMOLYSIS < 15 (0-50); Potassium 4.2 mmol/L (3.4-5.1); Sodium 140 mmol/L (137-145)
== END 2019-04-08 22:00 | disposition home or self-care (01) ==
PROVIDERS: Emergency Provider Emergency Medicine; Family Provider Family Medicine; PCP Family Medicine
DX: K92.1 Melena (principal); E11.8 Type 2 diabetes mellitus with unspecified complications; Z79.4 Long term (current) use of insulin
CPT/HCPCS: 36415; 80048; 82272; 85025; 96374; 99284; C9113

== ENCOUNTER 2019-04-24 09:36 | Day surgery (SDC) | payer OTHER, SELFPAY ==
[2019-04-24] VITALS (8 sets, daily range): BP systolic 92–140; BP diastolic 48–79; PULSE 52–68; RESP 14–16; TEMP 36.2–36.6; O2SAT 91–99; BMI 51.6
--- NOTE | 2019-04-24 | PATH_ITS ---
[facility] Accession Number: [id number] . 01 Material submitted: . colon - POLYP AT 100CM . 02 Diagnosis: Colon at 100 cm, Polyp: Tubular adenoma with high-grade dysplasia; please see comment. Negative for malignancy. MRV 04/26/2019 1449 Local . 02 Comment: Given tangential sectioning, definitive evaluation of the margin is not possible. Correlation with the endoscopic findings before and after polypectomy are recommended to assure complete removal of the lesion. Given the finding of high-grade dysplasia, a shortened surveillance interval is recommended. . As part of routine quality improvement manager, Dr. Chamberlain has reviewed this case and agrees with the diagnosis of tubular adenoma with high-grade dysplasia. . 02 Electronically signed: . Cruz Wei MD, PhD, Pathologist NPI- [id number] . 01 Gross description: . POLYP AT 100CM: Received in formalin is 1 fragment(s) of [place], soft tissue measuring 0.7 x 0.6 x 0.6 cm which is inked trisected and submitted entirely in 1 cassette(s) /[facility] [place] 04/24/2019 2243 Local . 02 Pathologist provided ICD-10: D12.6 . 02 CPT . 014322 Performed at: 01 [facility] [address] [facility], [place], [place] [id number] MD Todd Deleon MD Phone: [phone] Performed at: 02 [facility] [address] [place], [place] [id number] MD Мария Dooley MD Phone: [phone]
[2019-04-24] MEDS: SODIUM CHLORIDE 0.9% 1,000 ML 200 ML IV (10:18)
--- NOTE | 2019-04-24 10:50 | PM.PREOP ---
Pre-operative Note Interval Note History & Physical reviewed/Exam performed by Physician: Yes Changes to H&P: No ASA Class (for procedural sedation): III
--- NOTE | 2019-04-24 11:01 | PM.PREOP ---
Pre-operative Note Interval Note History & Physical reviewed/Exam performed by Physician: Yes Changes to H&P: No ASA Class (for procedural sedation): III
--- NOTE | 2019-04-24 11:12 | PM.OP.ENDO ---
Operative Date/Time/Diagnoses Date of procedure: 04/24/19 Time of procedure: 11:12 Pre-op diagnosis: GI bleed Post-op diagnosis: same Procedure & Clinicians Study performed: Esophagoduodenoscopy Colonoscopy Same procedure as scheduled: Yes Indications: 83 y.o male with chronic GI bleed Surgeon: Gilberto Abbott Procedure Notes SCOAP/Timeout: Performed Procedure in detail: Patient placed in left lateral decubitus position. Time out was performed. Procedural sedation was administered with Versed and Fentanyl. A bite block was placed. the scope was inserted into the mouth and advanced through the esophagus and into the stomach. The pylorus was intubated and the duodenum was normal. The scope was retroflexed within the stomach and there was a hiatal hernia. No ulcers, or gastritis. The scope was withdrawn into the esophagus the Z line was seen at 40 cm from the incisions. There was no zavala's esophagitis or masses or strictures. Stomach was desufflated and scope removed. Patient tolerated procedure well. Patient placed in left lateral decubitus position. Time out was performed. Procedural sedation was administered with Versed and Fentanyl. A rectal exam demonstrated no external hemorrhoids no internal masses. Colonoscopy scope was placed into the rectum and advanced through the colon to the cecum. The ileocecal valve was identified. The scope was then slowly withdrawn examining colon thoroughly in all directions. The colonoscopy was notable for the following 1. Adenomatous appearing polyp 1 cm @ 100 cm from verge removed with hot snare hemostatic 2. Telles diverticulosis 3. Quality of prep fair Scope withdrawal time: 6 Sedation minutes: 30 Findings: polyp Specimen(s): none sent Complications: none Impression: Polyp Post-procedure Recommendations: Colonscopy in 5 years Disposition: same day surgery
[2019-04-24] MEDS: LIDOCAINE 4% SOLN 50 ML 20 ML TOP (11:40)
[2019-04-24] MEDS: fentaNYL 250 MCG/5 ML INJ IV (11:41)
[2019-04-24] MEDS: MIDAZOLAM 5 MG/5 ML VIAL IV (11:41)
--- NOTE | 2019-04-24 11:50 | SUR.PHASEI ---
Pt artrived, 02 added for low room air st, pt sleepy easily arousable. denied pain. speech strong, swallow intact, belly soft.
--- NOTE | 2019-04-24 13:51 | SUR.PHASEII ---
Late entry: brought in, d/c instructions discussed, both voiced an understanding. Pt left when ready and left in stable condition.
== END 2019-04-24 13:00 | disposition home or self-care (01) ==
PROVIDERS: Family Provider Family Medicine; PCP Family Medicine; Referring Provider Surgery; Visit Provider Surgery
PROC: 0DJ08ZZ Inspection of Upper Intestinal Tract, Via Natural or Artificial Opening Endoscopic (ICD-10-PCS; CPT 43235; principal; 2019-04-24 10:45)
PROC: 0DJD8ZZ Inspection of Lower Intestinal Tract, Via Natural or Artificial Opening Endoscopic (ICD-10-PCS; CPT 45378; 2019-04-24 10:45)
DX: K44.9 Diaphragmatic hernia without obstruction or gangrene (principal); K57.30 Diverticulosis of large intestine without perforation or abscess without bleeding; D12.6 Benign neoplasm of colon, unspecified
CPT/HCPCS: 45385; 43235; 99152; 99153; J2250; J3010

== ENCOUNTER → 2019-05-11 14:32 | Outpatient (CLI) | payer OTHER, SELFPAY ==
[2019-05-11 14:53] LABS: Bacteria Urine None Seen; WBC Urine None Seen (0-5/HPF)
[2019-05-11 15:36] LABS: Add Manual Diff / Slide Review NO; Basophils Absolute Auto 0 /uL (0-100); Basophils Percent Auto 0.7 % (0-2); Eosinophils Absolute Auto 400 /uL (0-450); Eosinophils Percent Auto 7.6 % (2-4); Hematocrit 34.1 % (41-53); Hemoglobin 11.4 g/dL (13.5-17.5); Lymphocytes Absolute Auto 800 /uL (1100-4500); Lymphocytes Percent Auto 17.1 % (25-40); Mean Corpuscular HGB Conc 33.4 % (30-36); Mean Corpuscular Volume 95.9 fL (80-100); Monocytes Absolute Auto 700 /uL (0-900); Monocytes Percent Auto 14.2 % (3-14); Neutrophils Absolute Auto 2900 /uL (1500-7000); Neutrophils Percent Auto 60.4 % (50-75); Platelet Count 143 X10^3/uL (150-400); Red Blood Cell Count 3.55 X10^6/uL (4.5-5.9); White Blood Cell Count 4.9 X10^3/uL (4.5-11.0)
[2019-05-11 15:56] LABS: Alanine Aminotransferase 14 IU/L (<50); Albumin 3.7 g/dL (3.5-5.0); Albumin Globulin Ratio 1.2 (1.0-2.8); Alkaline Phosphatase 71 U/L (38-126); Aspartate Aminotransferase 24 IU/L (17-59); Bilirubin Total 0.5 mg/dL (0.2-1.3); Blood Urea Nitrogen 60 mg/dL (9-20); Calcium 9.5 mg/dL (8.4-10.2); Carbon Dioxide 26 mmol/L (22-32); Chloride 103 mmol/L (98-107); Globulin 3.1 g/dL (1.7-4.1); Glucose 197 mg/dL (80-110); HEMOLYSIS < 15 (0-50); Phosphorous 3.4 mg/dL (2.3-3.7); Potassium 4.9 mmol/L (3.4-5.1); Sodium 140 mmol/L (137-145); Total Protein 6.8 g/dL (6.3-8.2)
[2019-05-11 15:59] LABS: HEMOLYSIS 47 (0-50); Iron 95 ug/dL (49-181)
[2019-05-11 16:02] LABS: Hemoglobin A1C% w Est Avg Glu 7.7 % (4.0-6.0)
[2019-05-11 16:11] LABS: Percent Iron Saturation 35 % (20-50); Total Iron Binding Capacity 275 ug/dL (261-462); Transferrin 224 mg/dL (206-381)
[2019-05-11 16:26] LABS: Vitamin D 25 Hydroxy (D3) 61.6 ng/mL (30.0-100.0)
[2019-05-11 16:32] LABS: Ferritin 56 ng/mL (18-464)
[2019-05-11 17:04] LABS: Appearance Urine UA CLEAR; Bilirubin Urine UA NEGATIVE (NEGATIVE); Color Urine UA YELLOW; Glucose Urine UA NEGATIVE (Negative); Ketones Urine UA NEGATIVE (NEGATIVE); Leukocyte Esterase Urine UA NEGATIVE (NEGATIVE); Nitrite Urine UA NEGATIVE (Negative); Occult Blood Urine UA NEGATIVE (Negative); Protein Urine UA TRACE (Negative); Urobilinogen Urine UA 0.2 E.U./dL (0.2); pH Urine UA 5.5 (4.5-8.0)
[2019-05-11 17:16] LABS: Culture Indicated Urine Cult Not Indicated; RBC Urine 0-1/HPF (0-5/HPF); Squamous Epithelial Cell Urine 0-1 /HPF (0-5/HPF)
[2019-05-11 20:17] LABS: Creatinine Urine Random 29.2 mg/dL; Protein (Total) Urine Random 27 mg/dL (0-12); Protein Creatinine Ratio Urine 0.92 GRAM/24H
== END ==
PROVIDERS: Family Provider Family Medicine; PCP Family Medicine; Referring Provider Specialist; Visit Provider Family Medicine
DX: N18.4 Chronic kidney disease, stage 4 (severe) (principal); D63.1 Anemia in chronic kidney disease; N25.0 Renal osteodystrophy; E78.2 Mixed hyperlipidemia; E11.22 Type 2 diabetes mellitus with diabetic chronic kidney disease; Z79.4 Long term (current) use of insulin
CPT/HCPCS: 36415; 80053; 81001; 82306; 82570; 82728; 83036; 83540; 83550; 84100; 84156; 85025

== ENCOUNTER 2019-05-24 14:00 | Outpatient (RCR) | payer OTHER, SELFPAY | END 2019-05-24 15:00 | LOC: CAR 14:00 | PROVIDERS: Family Provider Family Medicine; PCP Family Medicine; Referring Provider Family Medicine; Visit Provider Family Medicine | DX: I73.9 Peripheral vascular disease, unspecified (principal) | CPT/HCPCS: 93797; 93798 ==

== ENCOUNTER → 2019-08-11 15:59 | Outpatient (ROUT) | payer OTHER, SELFPAY ==
[2019-08-11 16:24] LABS: Hemoglobin A1C% w Est Avg Glu 7.2 % (4.0-6.0)
== END ==
PROVIDERS: Family Provider Family Medicine; PCP Family Medicine; Visit Provider Family Medicine
DX: E11.51 Type 2 diabetes mellitus with diabetic peripheral angiopathy without gangrene (principal)
CPT/HCPCS: 83036

== ENCOUNTER → 2019-10-24 14:29 | Outpatient (CLI) | payer OTHER, SELFPAY ==
[2019-10-25 19:07] LABS: COVID19 Sendout Not Detected (Not Detect)
== END ==
PROVIDERS: Family Provider Family Medicine; PCP Family Medicine; Visit Provider Physician Assistant
DX: Z11.59 Encounter for screening for other viral diseases (principal)
CPT/HCPCS: 87635

== ENCOUNTER 2019-10-27 07:14 | Day surgery (SDC) | payer OTHER, SELFPAY ==
[2019-10-23 07:47] VITALS: BMI 37.4
[2019-10-27] VITALS (8 sets, daily range): BP systolic 91–123; BP diastolic 42–55; PULSE 45–55; RESP 7–16; TEMP 36.2–37; O2SAT 93–97; BMI 23.7
[2019-10-27] MEDS: LACTATED RINGERS 1,000 ML 42 ML IV (08:27)
--- NOTE | 2019-10-27 09:10 | PM.PREOP ---
Pre-operative Note Interval Note History & Physical reviewed/Exam performed by Physician: Yes Changes to H&P: No
[2019-10-27] MEDS: CIPROFLOXACIN 400 MG/200 ML PIGGYBACK 200 MG IV (09:27)
--- NOTE | 2019-10-27 09:48 | SUR.OPER ---
Lithotomy on padded OR bed, head on pillow, arms secured on padded arm boards at <90 degrees abduction. Legs secured in padded yellow fins stirrups.
--- NOTE | 2019-10-27 09:56 | PM.OP.1 ---
Operative Date/Time/Diagnoses Date of procedure: 10/27/19 Time of procedure: 09:56 Pre-op diagnosis: Penile urethral stricture. Post-op diagnosis: same Procedure & Clinicians Procedure: 1. Cystoscopy and urethrotomy Same procedure as scheduled: Yes Indications: Dense, distal penile urethral stricture Surgeon: Spencer Marx Click Yes if Unassisted: Yes Anesthesia Type: General Operative Notes Findings: 1. Urethra-dense, distal penile urethral stricture. Remainder of urethra was normal caliber. 2. External sphincter-gaping. 3. Prostate-surgically absent. 4. Bladder-trace to 1+ trabeculation. Normal orifices bilaterally. No stone, tumor, or foreign body. Closure Type: not applicable Specimen(s): none sent Applied: catheter (Twenty [place] silicone 2 way catheter) Estimated Blood Loss (mL): 5 Blood products transfused: none Tourniquet time (min): 0 Procedure in detail: The patient was positioned supine and was administered general anesthesia. He was then repositioned semi lithotomy in the lower abdomen genitalia and groin were prepped and draped in sterile fashion. Next the 22 [place] panendoscope was passed lower urinary tract. The stricture could not be negotiated with the scope. The [place] urethrotome was then prepared and advanced into the penile meatus and proximally about 5 cm. The gauge was then dilated to 22 [place]. The blade was then withdrawn and the urethrotome was removed. The panendoscope was then reintroduced into the urethra and advanced proximally with the findings as described above. The bladder was left partially filled and then the panendoscope was removed. A 20 [place] silicone catheter was then advanced to the lower urinary tract, the balloon was inflated to 10 cc, and placed to gravity drainage. The patient was then repositioned in supine, was awakened, and transferred to a gurney. Complications: none Post-operative Condition: stable Disposition: PACU Plan for aftercare: Home
--- NOTE | 2019-10-27 15:40 | SUR.PHASEII ---
Late entry: Pt's brought in as pt came to [facility]. charles teaching done with and pt. Both voiced an understanding. Pt dressed and left when ready and left in stable condition.
== END 2019-10-27 11:30 | disposition home or self-care (01) ==
PROVIDERS: Family Provider Family Medicine; PCP Family Medicine; Referring Provider Specialist; Visit Provider Specialist
PROC: 0TND8ZZ Release Urethra, Via Natural or Artificial Opening Endoscopic (ICD-10-PCS; CPT 52276; principal; 2019-10-27 08:45)
DX: N35.811 Other urethral stricture, male, meatal (principal); N39.46 Mixed incontinence; I10 Essential (primary) hypertension; E11.9 Type 2 diabetes mellitus without complications; J44.9 Chronic obstructive pulmonary disease, unspecified; Z79.4 Long term (current) use of insulin
CPT/HCPCS: 52275; J0744; J2704; J3010

== ENCOUNTER → 2020-04-12 12:05 | Outpatient (CLI) | payer MEDICARE, SELFPAY ==
[2020-04-12] MEDS: COVID-19 VACC #1, MRNA(MOD) 100 MCG/0.5 ML VIAL IM (12:20)
== END ==
PROVIDERS: Family Provider Family Medicine; PCP Family Medicine; Visit Provider Internal Medicine
DX: Z23 Encounter for immunization (principal)
CPT/HCPCS: 0011A; 91301

== ENCOUNTER → 2020-05-10 12:35 | Outpatient (CLI) | payer MEDICARE, SELFPAY ==
[2020-05-10] MEDS: COVID-19 VACC #2, MRNA(MOD) 100 MCG/0.5 ML VIAL IM (12:44)
== END ==
PROVIDERS: Family Provider Family Medicine; PCP Family Medicine; Visit Provider Internal Medicine
DX: Z23 Encounter for immunization (principal)
CPT/HCPCS: 0012A; 91301

== ENCOUNTER 2020-09-06 14:04 | Observation (INO) | payer OTHER, SELFPAY ==
[2020-09-06] VITALS (17 sets, daily range): BP systolic 127–173; BP diastolic 60–75; PULSE 37–68; RESP 15–21; TEMP 36.2–36.6; O2SAT 90–99; BMI 35.9; BMI 34.8
--- NOTE | 2020-09-06 14:35 | DI.RAD.S_ITS ---
PROCEDURE: XR CHEST 1V INDICATIONS: chest pain TECHNIQUE: One view of the chest was acquired. COMPARISON: [facility], CR, XR CHEST 2V, 10/14/2018, 15:06. FINDINGS: Surgical changes and devices: None. Lungs and pleura: Bibasilar atelectasis 6 inserted by low lung volumes present. Mediastinum: Heart size is enlarged. Moderate vascular congestion noted. Blunting the left costophrenic angle present. Bones and chest wall: No suspicious bony lesions. Overlying soft tissues appear unremarkable. IMPRESSION: Cardiomegaly and left basilar atelectasis and/or infiltrate accentuated by low lung volumes. Moderate vascular congestion. Aortic vascular calcification. Dictated by: Jose Alfredo Yanes M.D. on 09/06/2020 at 15:21 Approved by: Jose Alfredo Yanes M.D. on 09/06/2020 at 15:22
[2020-09-06 14:53] LABS: Add Manual Diff / Slide Review NO; Basophils Absolute Auto 0 /uL (0-100); Basophils Percent Auto 0.5 % (0-2); Eosinophils Absolute Auto 200 /uL (0-450); Eosinophils Percent Auto 2.7 % (2-4); Hematocrit 32.7 % (41-53); Hemoglobin 10.7 g/dL (13.5-17.5); Lymphocytes Absolute Auto 600 /uL (1100-4500); Lymphocytes Percent Auto 9.8 % (25-40); Mean Corpuscular HGB Conc 32.8 % (30-36); Mean Corpuscular Hemoglobin 32.8 PG (26-34); Mean Corpuscular Volume 99.9 fL (80-100); Monocytes Absolute Auto 700 /uL (0-900); Monocytes Percent Auto 12.3 % (3-14); Neutrophils Absolute Auto 4300 /uL (1500-7000); Neutrophils Percent Auto 74.7 % (50-75); Platelet Count 115 X10^3/uL (150-400); Red Blood Cell Count 3.28 X10^6/uL (4.5-5.9); Red Cell Distribution Width 17.3 % (11.6-14.8); White Blood Cell Count 5.7 X10^3/uL (4.5-11.0)
[2020-09-06 15:06] LABS: Alanine Aminotransferase 21 IU/L (<50); Albumin 3.6 g/dL (3.5-5.0); Albumin Globulin Ratio 1.2 (1.0-2.8); Alkaline Phosphatase 68 U/L (38-126); Aspartate Aminotransferase 33 IU/L (17-59); BUN Creatinine Ratio 23.6 (6-22); Bilirubin Total 0.6 mg/dL (0.2-1.3); Blood Urea Nitrogen 64 mg/dL (9-20); Calcium 9.7 mg/dL (8.4-10.2); Carbon Dioxide 24 mmol/L (22-32); Chloride 110 mmol/L (98-107); Creatine Kinase 73 U/L (55-170); Estimated Glomerular Filt Rate 22.5 mL/min (>60); Glucose 90 mg/dL (80-110); HEMOLYSIS < 15 (0-50); Lipase 434 U/L (23-300); Potassium 4.7 mmol/L (3.4-5.1); Sodium 142 mmol/L (137-145); Total Protein 6.6 g/dL (6.3-8.2)
[2020-09-06 15:17] LABS: Troponin I 0.015 ng/mL (0.01-0.034)
--- NOTE | 2020-09-06 15:20 | ED.ARRPALP ---
HPI - Arrhythmia/Palpitations General Chief Complaint: Arrhythmia/Palpitations Stated Complaint: low pulse for about a week Time Seen by Provider: 09/06/20 14:51 Source: patient Mode of arrival: Wheelchair Limitations: no limitations History of Present Illness HPI narrative: This is an 85-year-old male who comes in with complaint of slow heart beat. Patient states his home health critical care physician assistant who comes on Mondays, Wednesdays and Fridays noted last week that his heart rate was low. They noticed again on his most recent 2 visits as well as today. Patient was sent. He states he has felt weak, he denies any other new symptoms. He denies any syncope or lightheadedness, no chest pain or pressure. He has had chronic shortness of breath which has not worsened. He has not any new or worsening edema in his lower extremities. No diarrhea, constipation or new urinary symptoms. He is chronically incontinence. Patient does have a history of diabetes, coronary artery disease and is on carvedilol, amlodipine, torsemide, felodipine, members all an aspirin daily. He has not had any prior cardiac surgeries or cardiac stents or ablation. Patient does have a prior history of prostate surgery, leg surgery, bladder surgery cataracts. Does have a history of osteomyelitis and is on doxycycline chronically with no acute worsening of his symptoms. He sees Dr. Lance for cardiology. He is accompanied by his today. He and his state he has not had any new changes to his medications, new medications added her dosage adjustments. They believe he has been taking his medications regularly and appropriately. Related Data Home Medications Medication Instructions Recorded Confirmed albuterol sulfate 90 mcg/actuation 2 puff INHALATION Q4-6H PRN gram 03/21/19 09/06/20 aerosol inhaler tiotropium bromide 2.5 2 puff INHALATION PRN PRN 03/21/19 09/06/20 mcg/actuation mist for inhalation famotidine [Pepcid] 20 mg PO PRN PRN 04/24/19 09/06/20 insulin lispro 100 unit/mL 10 unit SUBCUT DAILY ml 05/12/19 09/06/20 subcutaneous pen Humulin N NPH U-100 Insulin 10 - 20 unit SUBCUT DAILY 10/27/19 09/06/20 felodipine 2.5 mg PO DAILY 10/27/19 09/06/20 amlodipine 2.5 mg PO DAILY 09/06/20 09/06/20 doxycycline monohydrate 100 mg PO BID 09/06/20 09/06/20 Previous Rx's Medication Instructions Recorded aspirin 81 mg PO QDAY #30 tab 08/31/16 cholecalciferol (vitamin D3) 2,000 unit PO QDAY #30 cap 08/31/16 [Vitamin D3] pyridoxine (vitamin B6) 100 mg PO QDAY #30 tab 08/31/16 Lancets ea SEE INSTRUCTIONS #100 12/16/16 inhalational spacing device #1 each 10/18/18 spirometers and accessories #1 each 10/18/18 Syringes #100 each 06/16/19 BD insulin pen needle UF short #100 each 07/06/19 clobetasol 0.05 % topical ointment 1 applic TOPICAL BID #60 g 04/02/20 insulin syr/ndl U100 half essie 0.5 #100 each 05/06/20 mL 31 gauge x 5/16 carvedilol 25 mg tablet See Rx Instructions .ROUTE 07/15/20 .COMPLEX #180 tab ferrous sulfate 324 mg (65 mg 324 mg PO DAILY #30 tab 07/22/20 iron) tablet,delayed release One Touch Verio Glucose Test Strips #180 each 08/01/20 torsemide 20 mg tablet See Rx Instructions .ROUTE 08/02/20 .COMPLEX #60 tab Allergies Allergy/AdvReac Type Severity Reaction Status Date / Time metolazone [METOLAZONE] Allergy Severe VERY DIZZY Verified 09/06/20 14:31 morphine [MORPHINE] Allergy Unknown large Verified 09/06/20 14:31 welts, itching Penicillins [PENICILLINS] Allergy Unknown red face Verified 09/06/20 14:31 NSAIDS (Non-Steroidal AdvReac Severe RENAL Verified 09/06/20 14:31 Anti-Inflamma INSUFF [NSAIDS (NON-STEROIDAL ANTI-INFLAMMA] Review of Systems Review of Systems ROS Unobtainable: All systems reviewed & are unremarkable except as noted in HPI and below Patient History Medical History Anemia (2009) CHF (congestive heart failure) CKD (chronic kidney disease) stage 4, GFR 15-29 ml/min Diabetes mellitus (1997) Diabetic nephropathy Edema Foot pain (2002) Gastric ulcer (1966) Hearing loss (1935) History of chronic skin ulcer History of malignant neoplasm of prostate History of urethral stricture Hypertension Infectious disease (2011) Kidney failure Lumbar spine pain Osteomyelitis (2011) Peripheral neuropathy (2002) Prostate cancer (1998) Urethral stricture 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 Urinary incontinence Urinary incontinence, mixed Surgical History Anesthesia complication History of cataract removal with insertion of prosthetic lens (2012) History of lumbar discectomy History of lumbar laminectomy History of prostate surgery (1998) History of surgery (1951) History of tonsillectomy and adenoidectomy (1947) Hx of cystoscopy (10/17/19) Family History Father Cancer Mother Heart disease Hypertension Sister Diabetes mellitus Social History household members: spouse Smoking Status: Former smoker Tobacco: How many years used: 30 alcohol intake: current Smoking Status: Former smoker alcohol intake frequency: holidays/special occasions only Alcohol type: wine Substance Use Type: does not use Exam Narrative Exam Narrative: GENERAL: Alert and oriented x three, obese male in mild distress HEENT: Head normocephalic, atraumatic, EOMI, pupils reactive, face symmetric, moist mucous membranes NECK: Supple, full range of motion CARDIOVASCULAR: Bradycardic regular rate and rhythm without murmurs, rubs or gallops. No JVD. Bilateral lower extremity edema. RESPIRATORY: Breath sounds equal bilaterally, no wheezes rales or rhonchi. ABDOMEN: Soft, nontender. Normoactive bowel sounds all 4 quadrants. No guarding or rebound, rigidity, no mass : No CVA tenderness EXTREMITIES: Normal range of motion. Neurovascularly intact. Patient has his left lower extremity wrapped. And right lower extremity is in are wrapped with brace. NEUROLOGICAL: Cranial nerves II through XII grossly intact. Moving all extremities SKIN: Warm, dry, no petechiae, no rashes or lesions. Initial Vital Signs Initial Vital Signs: Vital Signs Temperature 97.8 F 09/06/20 14:32 Pulse Rate 37 L 09/06/20 14:32 Respiratory Rate 15 09/06/20 14:32 Blood Pressure 127/70 09/06/20 14:32 Pulse Oximetry 99 06/25/21 14:32 Course Orders Ordered: ED Orders 09/06/20 14:35 XR chest 1V Stat EKG-12 Lead Stat 09/06/20 14:44 Complete Blood Count AUTO DIFF Stat Comprehensive Metabolic Panel Stat Lipase Stat Magnesium Stat NT-proBNP (BNP-Adult 18+) Stat Thyroid Stimulating Hormone Stat Troponin & CK Cardiac Panel Stat 09/06/20 15:30 COVID19 - ADMIT (LEAD TRA[employer]ER swab/PCR) Stat Acetaminophen (Acetaminophen 325 Mg Tablet) 650 mg PO Q6HR PRN PRN Reason: Fever/Mild Pain (1-3) Calcium Carbonate (Calcium Carbonate 500 Mg Tab) 1,000 mg PO Q4HR PRN PRN Reason: Dyspepsia Docusate Sodium (Docusate 100 Mg Capsule) 100 mg PO BID PRN PRN Reason: constipation Ondansetron HCl (Ondansetron 4 Mg/2 Ml Inj) 4 mg IV Q8HR PRN PRN Reason: Nausea And Vomiting Discontinued Medications Sodium Chloride (Normal Saline 0.9%) 1,000 mls @ 150 mls/hr IV CONT KANDY Stop: 09/06/20 19:45 Last Admin: 09/06/20 15:26 Dose: 150 mls/hr Documented by: RSTONE Heparin Sodium/Dextrose (Heparin Drip) 25,000 unit in 500 mls @ 20 mls/hr IV CONT KANDY; Protocol Consultations Consultation #1: Case discussed with Dr. Heller. Patient has what appears to be a very long P are interval but does not appear to have any dropped beats patient does not appear to be marching out through his QRS complexes. Does appear to be a true first-degree AV block. He recommends observation for 24 hours, holding patient's Coreg. He does take Coreg and amlodipine. We discussed that patient has made it clear that he is DNR/DNI with no intervention such as electric shock and he has also made it clear that he is not interested pacemaker if he were to require one. Consultation #2: Dr. Thomas is covering for patient's primary care Dr. Lewis. Patient does appear to have a very prolonged P are interval and does not appear to be in third-degree heart block does not appear that his P waves marching out, he does not appear to have prolonging P are intervals or dropped beats at any point. Patient's electrolytes do not show any major abnormalities today. Patient's troponin is negative. His BN P unclear if this is a true result as it states less than 0 but patient is not short of breath. He does have some moderate vascular congestion, cardiomegaly and left basilar atelectasis and/or infiltrate except treated by low lung volumes on his imaging. Case discussed with primary care physician who kindly accepts. Vital Signs Vital signs: Vital Signs - 8 hr 09/06/20 14:32 09/06/20 14:43 09/06/20 14:47 Temperature 97.8 F Pulse Rate 37 L 49 L 56 L Respiratory Rate 15 21 15 Blood Pressure 127/70 161/74 H Pulse Oximetry 99 99 09/06/20 15:00 09/06/20 15:01 09/06/20 15:30 Temperature Pulse Rate 63 56 L 51 L Respiratory Rate 19 16 20 Blood Pressure 150/69 H Pulse Oximetry 97 96 96 09/06/20 15:31 09/06/20 16:00 09/06/20 16:08 Temperature Pulse Rate 50 L 49 L 45 L Respiratory Rate 20 17 16 Blood Pressure 133/60 159/72 H Pulse Oximetry 97 99 97 09/06/20 16:30 09/06/20 16:31 09/06/20 17:00 Temperature Pulse Rate 46 L 45 L 58 L Respiratory Rate 15 15 18 Blood Pressure 155/67 H Pulse Oximetry 95 95 90 L 09/06/20 17:30 09/06/20 17:31 Temperature Pulse Rate 47 L 47 L Respiratory Rate 16 16 Blood Pressure 173/72 H Pulse Oximetry 94 94 MDM - Arrhythmia/Palpitations Lab Data Attestation: I reviewed the patient's lab results. Result diagrams: 09/06/20 14:44 09/06/20 14:44 Labs: Lab Results 09/06/20 09/06/20 09/06/20 Range/Units 14:44 14:44 14:44 WBC 5.7 (4.5-11.0) X10^3/uL RBC 3.28 L (4.5-5.9) X10^6/uL Hgb 10.7 L (13.5-17.5) g/dL Hct 32.7 L (41-53) % MCV 99.9 (80-100) fL MCH 32.8 (26-34) PG MCHC 32.8 (30-36) % RDW 17.3 H (11.6-14.8) % Plt Count 115 L (150-400) X10^3/uL Neut % (Auto) 74.7 (50-75) % Lymph % (Auto) 9.8 L (25-40) % [place] % (Auto) 12.3 (3-14) % Eos % (Auto) 2.7 (2-4) % Baso % (Auto) 0.5 (0-2) % Neut # (Auto) 4300 (3432-5274) /uL Lymph # (Auto) 600 L (3945-4248) /uL [place] # (Auto) 700 (0-900) /uL Eos # (Auto) 200 (0-450) /uL Baso # (Auto) 0 (0-100) /uL Sodium 142 (137-145) mmol/L Potassium 4.7 (3.4-5.1) mmol/L Chloride 110 H (98-107) mmol/L Carbon Dioxide 24 (22-32) mmol/L BUN 64 H (9-20) mg/dL Creatinine 2.71 H (0.66-1.25) mg/dL Estimated GFR 22.5 L (>60) mL/min BUN/Creatinine Ratio 23.6 H (6-22) Glucose 90 (80-110) mg/dL Calcium 9.7 (8.4-10.2) mg/dL Magnesium 2.0 (1.6-2.3) mg/dL Total Bilirubin 0.6 (0.2-1.3) mg/dL AST 33 (17-59) IU/L ALT 21 (<50) IU/L Alkaline Phosphatase 68 (38-126) U/L Total Creatine Kinase 73 (55-170) U/L CK-MB (CK-2) TNP CK-MB (CK-2) Rel Index TNP Troponin I 0.015 (0.01-0.034) ng/mL NT-Pro-B Natriuret Pep (<450) pg/mL Total Protein 6.6 (6.3-8.2) g/dL Albumin 3.6 (3.5-5.0) g/dL Globulin 3.0 (1.7-4.1) g/dL Albumin/Globulin Ratio 1.2 (1.0-2.8) Lipase 434 H (23-300) U/L TSH (0.47-4.68) uIU/mL SARS-CoV-2 (PCR) (Negative) 09/06/20 09/06/20 09/06/20 Range/Units 14:44 14:44 15:30 WBC (4.5-11.0) X10^3/uL RBC (4.5-5.9) X10^6/uL Hgb (13.5-17.5) g/dL Hct (41-53) % MCV (80-100) fL MCH (26-34) PG MCHC (30-36) % RDW (11.6-14.8) % Plt Count (150-400) X10^3/uL Neut % (Auto) (50-75) % Lymph % (Auto) (25-40) % [place] % (Auto) (3-14) % Eos % (Auto) (2-4) % Baso % (Auto) (0-2) % Neut # (Auto) (7872-3259) /uL Lymph # (Auto) (5784-1299) /uL [place] # (Auto) (0-900) /uL Eos # (Auto) (0-450) /uL Baso # (Auto) (0-100) /uL Sodium (137-145) mmol/L Potassium (3.4-5.1) mmol/L Chloride (98-107) mmol/L Carbon Dioxide (22-32) mmol/L BUN (9-20) mg/dL Creatinine (0.66-1.25) mg/dL Estimated GFR (>60) mL/min BUN/Creatinine Ratio (6-22) Glucose (80-110) mg/dL Calcium (8.4-10.2) mg/dL Magnesium (1.6-2.3) mg/dL Total Bilirubin (0.2-1.3) mg/dL AST (17-59) IU/L ALT (<50) IU/L Alkaline Phosphatase (38-126) U/L Total Creatine Kinase (55-170) U/L CK-MB (CK-2) CK-MB (CK-2) Rel Index Troponin I (0.01-0.034) ng/mL NT-Pro-B Natriuret Pep < 0 (<450) pg/mL Total Protein (6.3-8.2) g/dL Albumin (3.5-5.0) g/dL Globulin (1.7-4.1) g/dL Albumin/Globulin Ratio (1.0-2.8) Lipase (23-300) U/L TSH 4.31 (0.47-4.68) uIU/mL SARS-CoV-2 (PCR) Negative (Negative) Imaging Data Chest x-ray: Radiologist's Impresson: [address] [id number] ReportSigned Patient: Donato Beth LMR#: [id number]: 6Acct:[id number]/Sex: 85 / MDate of Service: 09/06/20Loc: EDAccession Number: [id number] Procedure: XR chest 1V Ordering Provider: Maria Elena Moore D.O. PROCEDURE: XR CHEST 1V INDICATIONS: chest pain TECHNIQUE: One view of the chest was acquired. COMPARISON: [facility], , XR CHEST 2V, 10/14/2018, 15:06. FINDINGS: Surgical changes and devices: None. Lungs and pleura: Bibasilar atelectasis 6 inserted by low lung volumes present. Mediastinum: Heart size is enlarged. Moderate vascular congestion noted. Blunting the left costophrenic angle present. Bones and chest wall: No suspicious bony lesions. Overlying soft tissues appear unremarkable. IMPRESSION: Cardiomegaly and left basilar atelectasis and/or infiltrate accentuated by low lung volumes. Moderate vascular congestion. Aortic vascular calcification. Dictated by: Jose Alfredo Yanes M.D. on 09/06/2020 at 15:21 Approved by: Jose Alfredo Yanes M.D. on 09/06/2020 at 15:22 ECG Data Attestation: I personally reviewed and interpreted this ECG as follows: Prior ECG tracings: available for review Interpretation: Sinus bradycardia first-degree AV block rate of 46, P are 552, QRS of 94 and QTC of 438. No acute ST elevation. MDM Narrative Medical decision making narrative: This is an 85-year-old male comes emergency department with weakness and slow heartbeat. Patient positive significantly prolonged P are interval. Discussed with Cardiology her commands holding his carvedilol at this time and observation. Patient himself is quite clear that he does not wish intervention if he were to develop a fatal cardiac rhythm or require electrical pacing. Patient is opened to observation overnight. It was noted patient's bnp was less than zero and lab was asked to rerun this. Discharge Plan Departure Patient Disposition: Admitted as Observation Clinical Impression: Bradycardia, Prolonged ND interval Admit Date/Time: 09/06/20 18:05 Admit Provider: Kylie Thomas
[2020-09-06] MEDS: SODIUM CHLORIDE 0.9% 1,000 ML 150 ML IV (15:26)
[2020-09-06 15:53] LABS: Thyroid Stimulating Hormone 4.31 uIU/mL (0.47-4.68)
[2020-09-06 16:28] LABS: COVID19 - ADMIT (NP swab/PCR) Negative (Negative)
--- NOTE | 2020-09-06 19:38 | PM.HP.1 ---
History of Present Illness History of Present Illness Date Patient Seen: 09/06/20 Time Patient Seen: 19:38 Chief complaint: low pulse for about a week Narrative: This 85 year old patient of Dr. Thompson is admitted from the ED secondary to bradycardia and first-degree AV block. Reports that he had been in his usual state of health but that home health had noticed that his heart rate had been low over the last 2 weeks. Has been taking his medications regularly. He normally has home health 3 times weekly. In the last 2 visits, he has been slightly more weak than normal and they called into Dr. Lewis's office to see what to do. She advised that he go to the ED for an evaluation. Vital signs upon admission to the ED included temperature 97.8?, pulse 37, respirations 15, blood pressure 127/70, O2 saturation 99% on room air. EKG showed sinus bradycardia with a ventricular rate of 46 and AV block. VA interval was prolonged. Dr. Ramon, cardiology was consulted, and he recommended holding coreg and observing overnight. Patient does have chronic anemia, kidney disease, and COPD; this was reflected in his labs with a hemoglobin/hematocrit of 10.7/32.7, creatinine 2.71, and elevated BUN at 64. Notably, troponin was negative and his lipase was elevated at 434. He is a former smoker and has chronic shortness of breath. Chronic medical conditions include urinary incontinence, weeping edema, ostemyelitis, and diabetes mellitus type II, which are at baseline. Patient History Medical History Anemia (2009) CHF (congestive heart failure) CKD (chronic kidney disease) stage 4, GFR 15-29 ml/min Diabetes mellitus (1997) Diabetic nephropathy Edema Foot pain (2002) Gastric ulcer (1966) Hearing loss (1935) History of chronic skin ulcer History of malignant neoplasm of prostate History of urethral stricture Hypertension Infectious disease (2011) Kidney failure Lumbar spine pain Osteomyelitis (2011) Peripheral neuropathy (2002) Prostate cancer (1998) Urethral stricture 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 Urinary incontinence Urinary incontinence, mixed Surgical History Anesthesia complication History of cataract removal with insertion of prosthetic lens (2012) History of lumbar discectomy History of lumbar laminectomy History of prostate surgery (1998) History of surgery (1951) History of tonsillectomy and adenoidectomy (1947) Hx of cystoscopy (10/17/19) Family & Social History Family History Father Cancer Mother Heart disease Hypertension Sister Diabetes mellitus Social History: household members spouse Prior Living Arrangements House Safety & Behavioral: Feels Safe in Current Yes Environment Been Physically Hurt or No Threatened By a Person Suicidal Ideation Description None Suicide Plan Description No Plan Tobacco & Substance use: Smoking Status Former smoker alcohol intake current alcohol intake frequency a few times a week Substance Use Type does not use Meds Home Medications and Allergies Home Medications Medication Instructions Recorded Confirmed Type aspirin 81 mg PO QDAY #30 tab 08/31/16 09/06/20 Rx cholecalciferol (vitamin D3) 2,000 unit PO QDAY #30 cap 08/31/16 09/06/20 Rx [Vitamin D3] pyridoxine (vitamin B6) 100 mg PO QDAY #30 tab 08/31/16 09/06/20 Rx Lancets ea SEE INSTRUCTIONS #100 12/16/16 05/30/20 Rx inhalational spacing device #1 each 10/18/18 05/30/20 Rx spirometers and accessories #1 each 10/18/18 05/30/20 Rx albuterol sulfate 90 mcg/actuation 2 puff INHALATION Q4-6H PRN gram 03/21/19 09/06/20 History aerosol inhaler tiotropium bromide 2.5 2 puff INHALATION PRN PRN 03/21/19 09/06/20 History mcg/actuation mist for inhalation famotidine [Pepcid] 20 mg PO PRN PRN 04/24/19 09/06/20 History insulin lispro 100 unit/mL 10 unit SUBCUT DAILY ml 05/12/19 09/06/20 History subcutaneous pen Syringes #100 each 06/16/19 05/30/20 Rx BD insulin pen needle UF short #100 each 07/06/19 05/30/20 Rx Humulin N NPH U-100 Insulin 10 - 20 unit SUBCUT DAILY 10/27/19 09/06/20 History felodipine 2.5 mg PO DAILY 10/27/19 09/06/20 History clobetasol 0.05 % topical ointment 1 applic TOPICAL BID #60 g 04/02/20 09/06/20 Rx insulin syr/ndl U100 half essie 0.5 #100 each 05/06/20 05/30/20 Rx mL 31 gauge x 16 carvedilol 25 mg tablet See Rx Instructions .ROUTE 07/15/20 09/06/20 Rx .COMPLEX #180 tab ferrous sulfate 324 mg (65 mg 324 mg PO DAILY #30 tab 07/22/20 09/06/20 Rx iron) tablet,delayed release One Touch Verio Glucose Test Strips #180 each 08/01/20 Rx torsemide 20 mg tablet See Rx Instructions .ROUTE 08/02/20 09/06/20 Rx .COMPLEX #60 tab amlodipine 2.5 mg PO DAILY 09/06/20 09/06/20 History doxycycline monohydrate 100 mg PO BID 09/06/20 09/06/20 History Allergies Allergy/AdvReac Type Severity Reaction Status Date / Time metolazone [METOLAZONE] Allergy Severe VERY DIZZY Verified 09/06/20 14:31 morphine [MORPHINE] Allergy Unknown large Verified 09/06/20 14:31 welts, itching Penicillins [PENICILLINS] Allergy Unknown red face Verified 09/06/20 14:31 NSAIDS (Non-Steroidal AdvReac Severe RENAL Verified 09/06/20 14:31 Anti-Inflamma INSUFF [NSAIDS (NON-STEROIDAL ANTI-INFLAMMA] Review of Systems Review of Systems ROS: Yes All systems reviewed with the patient and are negative except as otherwise documented Exam Vital Signs (past 8 hours): - 09/06/20 14:32 09/06/20 14:43 09/06/20 14:47 Temperature 97.8 F Pulse Rate 37 L 49 L 56 L Respiratory Rate 15 15 Blood Pressure 127/70 161/74 H Pulse Oximetry 99 99 09/06/20 15:00 09/06/20 15:01 09/06/20 15:30 Temperature Pulse Rate 63 56 L 51 L Respiratory Rate 19 16 20 Blood Pressure 150/69 H Pulse Oximetry 97 96 96 09/06/20 15:31 09/06/20 16:00 09/06/20 16:08 Temperature Pulse Rate 50 L 49 L 45 L Respiratory Rate 20 17 16 Blood Pressure 133/60 159/72 H Pulse Oximetry 97 99 97 09/06/20 16:30 09/06/20 16:31 09/06/20 17:00 Temperature Pulse Rate 46 L 45 L 58 L Respiratory Rate 15 15 18 Blood Pressure 155/67 H Pulse Oximetry 95 95 90 L 09/06/20 17:30 09/06/20 17:31 09/06/20 18:30 Temperature 97.1 F L Pulse Rate 47 L 47 L 52 L Respiratory Rate 16 16 19 Blood Pressure 173/72 H 136/75 Pulse Oximetry 94 94 98 Oxygen Delivery Method Room Air Oxygen Flow Rate 0 Narrative Exam Narrative: GENERAL: Alert and oriented, appearing stated age and in no acute distress. HEENT: Head normocephalic/atraumatic. LUNGS: Diminished inspiratory effort bilaterally, no audible wheezes, rhonchi or rales. CV: Normal S1 and S2 with bradycardic rate and regular rhythm. No audible murmurs, rubs or gallops. ABDOMEN: Soft, non-tender, non-distended, no organomegaly. Positive bowel sounds. EXTREMITIES: 3+ weeping edema to the level bilateral knees extremity, new dressing in place, right lower extremity. NEURO: Cranial nerves II through XII grossly intact, no focal deficits. PSYCH: Alert and oriented x 3. SKIN: Weeping edema, bilateral lower extemties with hemosiderin changes. Objective Labs Result Diagrams: 09/06/20 14:44 09/06/20 14:44 Labs: Laboratory Results - last 24 hr 09/06/20 09/06/20 09/06/20 14:44 14:44 14:44 WBC 5.7 RBC 3.28 L Hgb 10.7 L Hct 32.7 L MCV 99.9 MCH 32.8 MCHC 32.8 RDW 17.3 H Plt Count 115 L Neut % (Auto) 74.7 Lymph % (Auto) 9.8 L [place] % (Auto) 12.3 Eos % (Auto) 2.7 Baso % (Auto) 0.5 Neut # (Auto) 4300 Lymph # (Auto) 600 L [place] # (Auto) 700 Eos # (Auto) 200 Baso # (Auto) 0 Sodium 142 Potassium 4.7 Chloride 110 H Carbon Dioxide 24 BUN 64 H Creatinine 2.71 H Estimated GFR 22.5 L BUN/Creatinine Ratio 23.6 H Glucose 90 Calcium 9.7 Magnesium 2.0 Total Bilirubin 0.6 AST 33 ALT 21 Alkaline Phosphatase 68 Total Creatine Kinase 73 CK-MB (CK-2) TNP CK-MB (CK-2) Rel Index TNP Troponin I 0.015 NT-Pro-B Natriuret Pep Total Protein 6.6 Albumin 3.6 Globulin 3.0 Albumin/Globulin Ratio 1.2 Lipase 434 H TSH SARS-CoV-2 (PCR) 09/06/20 09/06/20 09/06/20 14:44 14:44 15:30 WBC RBC Hgb Hct MCV MCH MCHC RDW Plt Count Neut % (Auto) Lymph % (Auto) [place] % (Auto) Eos % (Auto) Baso % (Auto) Neut # (Auto) Lymph # (Auto) [place] # (Auto) Eos # (Auto) Baso # (Auto) Sodium Potassium Chloride Carbon Dioxide BUN Creatinine Estimated GFR BUN/Creatinine Ratio Glucose Calcium Magnesium Total Bilirubin AST ALT Alkaline Phosphatase Total Creatine Kinase CK-MB (CK-2) CK-MB (CK-2) Rel Index Troponin I NT-Pro-B Natriuret Pep < 0 Total Protein Albumin Globulin Albumin/Globulin Ratio Lipase TSH 4.31 SARS-CoV-2 (PCR) Negative Assessment & Plan Assessment & Plan narrative: 1. Bradycardia, essentially asymptomatic, secondary to first-degree AV block Plan: Patient does not desire pacemaker. He is DNR/DNI. Will hold Coreg overnight and observe closely with telemetry. If stable and at baseline, will plan to discharge in the morning, possibly without Coreg. Follow up as outpatient with cardiology. 2. Hypertension, chronic Plan: Holding Coreg as noted above, otherwise continue usual home medications. Will trend vital signs. 3. Osteomyelitis, chronic Plan: Continue home doxycycline. Will check CBC in am. 4. Weeping peripheral edema, chronic, at baseline Plan: Continue torsemide 40 mg p.o. q.a.m.. 5. Anemia, chronic, at baseline Plan: Treating underlying diseases . Continue ferrous sulfate 325 mg p.o. daily. Will check CBC in am. 6. Diabetes mellitus type 2, chronic Plan: Continue home medications. 7. CKD, stage IV, chronic plan: No new medications, will recheck BMP in the morning. 8. COPD, chronic Plan: Continue home medications. 9. GERD, chronic Plan: Continue home medications. 10. Elevated lipase, acute Plan: Etiology unclear, possibly due to medication use, renal failure, or other. He is not acutely ill, so infectious etiology is less likely, will recheck in the morning. Code: DNR/DNI DVT prophylaxis: SCDs Dispo: likely home tomorrow. Quality VTE Deep Vein Thrombosis/Pulmonary Embolism Present on Admission: No
[2020-09-06 21:06] LABS: NT-proBNP (BNP-Adult 18+) 6020 pg/mL (<450)
--- NOTE | 2020-09-06 21:07 | PC.NURSE ---
Corrected BNP 6020 called in from [facility] in the Lab.
--- NOTE | 2020-09-06 22:39 | PC.ADMIT ---
[email or web address] Admission Note:Safe hand off from [facility]. Patient arrived on the floor at 1820. Transfer w/ cane to bed. Patient VSS, Tele: Francesco 1st degree AV BBB. Patient VS stable, Lung sounds dim in the anterior bases. Patient denies chest pain, SOB, Chest pressure or dizziness or headache. Patient is alert and oriented. Patient has bilateral 2+ non pitting edema w/ discoloration, blisters and scales. He has a wound on his LLE anterior calf that is followed by wound care at [facility], it has a adhesive wrap. RLL has a compression sock and compression wrap. Patient's bed is low and locked, bed alarm is active and patient was educated about the use of his call light. The patient,Donato Beth,85 y/o, was given written information regarding hospital policies, unit procedures and contact persons. Patient's smoking status: Former smoker. Vital Signs - 8 hr 09/06/20 14:43 09/06/20 14:47 09/06/20 15:00 Temperature Pulse Rate 49 L 56 L 63 Respiratory Rate 21 15 19 Blood Pressure 161/74 H Pulse Oximetry 99 97 09/06/20 15:01 09/06/20 15:30 09/06/20 15:31 Temperature Pulse Rate 56 L 51 L 50 L Respiratory Rate 16 20 20 Blood Pressure 150/69 H 133/60 Pulse Oximetry 96 96 97 09/06/20 16:00 09/06/20 16:08 09/06/20 16:30 Temperature Pulse Rate 49 L 45 L 46 L Respiratory Rate 17 16 15 Blood Pressure 159/72 H Pulse Oximetry 99 97 95 09/06/20 16:31 09/06/20 17:00 09/06/20 17:30 Temperature Pulse Rate 45 L 58 L 47 L Respiratory Rate 15 18 16 Blood Pressure 155/67 H Pulse Oximetry 95 90 L 94 09/06/20 17:31 09/06/20 18:30 Temperature 97.1 F L Pulse Rate 47 L 52 L Respiratory Rate 16 19 Blood Pressure 173/72 H 136/75 Pulse Oximetry 94 98
--- NOTE | 2020-09-06 22:46 | PC.NURSE ---
Addendum entered by Konrad Shannon R.N. 09/06/20 23:04: Patient continues to have runs of V-Tach, Dr. Thomas was telephoned at 2305, Patient is asymptomatic. Will take of tele for now unless there are some symptoms that change per Dr. Thomas. Addendum entered by Konrad Shannon R.N. 09/06/20 22:49: Dr. Thomas aware of V-tach runs. Was notified and said patient did not want any interventions and is a DNR. Original Note: At 2223 Patient woke up was SOB. Vitals taken and BP was 142/66 HR 68 and O2 saturation was 93%. ICU was phoned about tele reading and the patient has keila at that time. Patient denied any other symptoms. Patient has had many runs of Vtach tonight but has been asymptomatic during his runs of vtach. Patient was put on 1 liter of 02 and is now 98%.
[2020-09-06] MEDS: DOXYCYCLINE HYCLATE 100 MG TABLET PO (22:55)
[2020-09-06] MEDS: ASPIRIN EC 81 MG TABLET PO (22:55)
[2020-09-07 00:30] VITALS: BP 147/78; PULSE 60; RESP 20; TEMP 36.3; O2SAT 96
[2020-09-07 03:41] VITALS: BP 147/82; PULSE 75; RESP 20; TEMP 36.3; O2SAT 95
[2020-09-07 08:09] VITALS: BP 154/66; PULSE 86; RESP 16; TEMP 36.1; O2SAT 95
[2020-09-07] MEDS: AMLODIPINE 5 MG TABLET 2.5 MG PO (08:24)
[2020-09-07] MEDS: DOXYCYCLINE HYCLATE 100 MG TABLET PO (08:24)
[2020-09-07] MEDS: SODIUM CHLORIDE 0.9% FLUSH 10 ML IV (08:25)
[2020-09-07] MEDS: FERROUS SULFATE 325 MG TABLET PO (08:25)
[2020-09-07] MEDS: INSULIN NPH 100 UNIT/ML VIAL 10 UNIT SUBCUT (08:25)
[2020-09-07 08:39] LABS: Add Manual Diff / Slide Review NO; Basophils Absolute Auto 100 /uL (0-100); Basophils Percent Auto 0.4 % (0-2); Eosinophils Absolute Auto 0 /uL (0-450); Eosinophils Percent Auto 0.3 % (2-4); Hematocrit 34.4 % (41-53); Hemoglobin 11.3 g/dL (13.5-17.5); Lymphocytes Absolute Auto 400 /uL (1100-4500); Lymphocytes Percent Auto 3.2 % (25-40); Mean Corpuscular HGB Conc 32.8 % (30-36); Mean Corpuscular Hemoglobin 32.7 PG (26-34); Mean Corpuscular Volume 99.7 fL (80-100); Monocytes Absolute Auto 900 /uL (0-900); Monocytes Percent Auto 6.6 % (3-14); Neutrophils Absolute Auto 12000 /uL (1500-7000); Neutrophils Percent Auto 89.5 % (50-75); Platelet Count 112 X10^3/uL (150-400); Red Blood Cell Count 3.45 X10^6/uL (4.5-5.9); White Blood Cell Count 13.4 X10^3/uL (4.5-11.0)
[2020-09-07 08:52] LABS: Lipase 342 U/L (23-300)
[2020-09-07 08:53] LABS: Blood Urea Nitrogen 64 mg/dL (9-20); Calcium 9.7 mg/dL (8.4-10.2); Carbon Dioxide 24 mmol/L (22-32); Chloride 110 mmol/L (98-107); Glucose 171 mg/dL (80-110); HEMOLYSIS < 15 (0-50); Potassium 4.7 mmol/L (3.4-5.1); Sodium 142 mmol/L (137-145)
[2020-09-07 09:02] LABS: NT-proBNP (BNP-Adult 18+) 6570 pg/mL (<450)
[2020-09-07] MEDS: CLOBETASOL 0.05% OINTMENT 15 GM 1 APPLIC TOP (09:29)
[2020-09-07] MEDS: PYRIDOXINE (VITAMIN B6) 50 MG TABLET 100 MG PO (09:29)
--- NOTE | 2020-09-07 10:55 | OT.IP.EVAL ---
Past Medical History (Last Reviewed 09/06/20 @ 20:40 by Maria Elena Moore DO) Anemia (2009) CHF (congestive heart failure) CKD (chronic kidney disease) stage 4, GFR 15-29 ml/min Diabetes mellitus (1997) Diabetic nephropathy Edema Foot pain (2002) Gastric ulcer (1966) Hearing loss (1935) History of chronic skin ulcer History of malignant neoplasm of prostate History of urethral stricture Hypertension Infectious disease (2011) Kidney failure Lumbar spine pain Osteomyelitis (2011) Peripheral neuropathy (2002) Prostate cancer (1998) Urethral stricture 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 Urinary incontinence Urinary incontinence, mixed Surgical History (Last Reviewed 09/06/20 @ 20:40 by Maria Elena Moore DO) Anesthesia complication History of cataract removal with insertion of prosthetic lens (2012) History of lumbar discectomy History of lumbar laminectomy History of prostate surgery (1998) History of surgery (1951) History of tonsillectomy and adenoidectomy (1947) Hx of cystoscopy (10/17/19) Occupational Therapy Inpatient Evaluation/Re-Eval M1 PT/OT-IP Prior Functional Status Start: 09/07/20 14:50 Freq: NEEDED Status: Active Protocol: Document 09/07/20 14:52 CGR (Rec: 09/07/20 15:15 CGR [id number]) Medical Review Prior Functional Status Medical History Reviewed Yes Communication Pt is an effective verbal communicator. Mobility and Gait Pt was MOD I for ambulation with a 4WW. Pt ambulated short distances. Activities of Daily Living and IADL's Pt was IND for ADLs but pt's assists with all IADLs. Pt states that he does bird baths rather than showers d/t his LB wounds. Social History Household Members spouse Living Arrangements House Number of Floors (Floors) Two Floors Number of Stairs To Enter/Railing? 1 step to enter from the garage and a basement that the patient does not need to access. 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 M2 OT-IP Current Condition Start: 09/07/20 14:50 Freq: Status: Active Protocol: Document 09/07/20 14:52 CGR (Rec: 09/07/20 15:15 CGR [id number]) Occupational Therapy Current Condition Current Condition Evaluation Date 09/07/20 Treatment Diagnosis Decreased HR and low energy Diagnosis Onset Date 09/06/20 M3 OT- IP Subjective and Pain Start: 09/07/20 14:50 Freq: Status: Active Protocol: Document 09/07/20 14:52 CGR (Rec: 09/07/20 15:15 CGR [id number]) OT- Subjective Occupational Therapy Visit Type Type Initial Evaluation Visit Start Time 10:31 Visit Stop Time 10:55 Total Visit Minutes 24 OT Pain Assessment Pain When Pain Assessed At Rest Pain Present Pain Present Denied Pain M4 OT- IP ADL's Start: 09/07/20 14:50 Freq: Status: Active Protocol: Document 09/07/20 14:52 CGR (Rec: 09/07/20 15:15 CGR [id number]) OT [id number] Comments OT Self-Feeding Comments Not meal time OT ADL-Grooming General Evaluation Grooming Ability Standby Assistance Areas Needing Assistance Retrieving/Set-up of Grooming Items,Combing/Brushing Hair, Face Washing Comments OT Grooming Comments seated in chair OT ADL-Oral Care General Eval Oral Care Ability Standby Assistance Areas of Assistance Brushing Teeth,Retrieving/Set- Up of Items Comments Oral Care Comments seated in chair OT ADL-Dressing Comments OT Dressing Comments not performed OT ADL-Toileting General Evaluation Toileting Ability Standby Assistance Comments OT Toileting Comments Pt had BM seated on toielt and was able to manage his brief and pericare with SBA OT ADL-Bathing Comments OT Bathing Comments Not performed, pt declined stating that he was too fatigued at this time. M5 OT- IP IADL's Start: 09/07/20 14:50 Freq: Status: Active Protocol: Document 09/07/20 14:52 CGR (Rec: 09/07/20 15:15 CGR [id number]) OT-Instrumental Activities of Daily Living Deficits IADL Deficits Identified No Deficits Home Safety Awareness Awareness of Need for Assistance at Home Good Awareness Ability to Problem Solve Emergency Able to Problem Solve Situations Medication Management Medication Management No Deficits Identified Money Management Money Management No Deficits Identified Meal Preparation Meal Preparation Caregiver Provides Assist Knitter Mechanic Knitter Mechanic Caregiver Provides Assist Driving Driving Concerns Identified Regarding Safety Driving Comments Pt states that he drives for his . M6 OT- IP Functional Cognition Start: 09/07/20 14:50 Freq: Status: Active Protocol: Document 09/07/20 14:52 CGR (Rec: 09/07/20 15:15 CGR [id number]) Cognitive Factors Limiting Selfcare Function Cognitive Ability Level of Alertness Alert Patient Orientation Name,Age,Birthday,Month,Date, Year,Day of Week,Place, Situation Attention Span Ability Capable of Focused Attention, Capable of Sustained Attention Ability to Follow Commands Able to Follow One Step Commands with Increased Time, Able to Follow One Step Commands with Repetition OT- Vision and Hearing OT- Hearing Assessment OT- Hearing Assessment Hearing Impaired OT- Vision Assessment Visual Acuity Glasses For Reading Visual Attentiveness WFL Occular Pursuits WFL Visual Convergence WFL Vision Assessment Comments 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 M7 OT- IP Mobility and Balance Start: 09/07/20 14:50 Freq: Status: Active Protocol: Document 09/07/20 14:52 CGR (Rec: 09/07/20 15:15 CGR [id number]) OT-Transfer Assessment Sit to and From Stand Sit to and from Stand Contact Guard Assistance, Minimal Assistance Transfers Transfer Ability Contact Guard Assistance Technique Transfer Destination Chair,Toilet Transfer Technique Stand Step Pivot Devices Transfer Assistive Devices Gait Belt,Front Wheeled Walker Comments Mobility Comments Pt ambulated from the chair to the toielt and back. Pt declined other activity at this time. OT- Balance Assessment Sitting Balance and Reactions Static Sitting Balance Ability Good Dynamic Sitting Balance Ability Fair M8 OT- IP Objective Assessments Start: 09/07/20 14:50 Freq: Status: Active Protocol: Document 09/07/20 14:52 CGR (Rec: 09/07/20 15:15 CGR [id number]) OT Gross Range of Motion Upper Extremity Range of Motion Assessment Within Functional Limits OT Strength Upper Extremity Strength Assessment Within Functional Limits OT- Coordination Assessment Upper Extremity Finger to Nose Test Within Functional Limits Finger Tapping Test Within Functional Limits OT-Muscle Tone Assessment Muscle Tone WNL Yes OT Sensation Assessment Edema Edema Absent M9 OT- IP Assessment and Plan Start: 09/07/20 14:50 Freq: Status: Active Protocol: Document 09/07/20 14:52 CGR (Rec: 09/07/20 15:15 CGR [id number]) OT Summary Assessment and Plan Potential Rehabilitation Potential Good Analytic Complexity at Evaluation Moderate Summary OT Impairments Balance,Functional Mobility, Grooming,Dressing,Toileting, Bathing,Toilet Transfers, Shower Transfers,Activity Tolerance Progress Towards Goals Progressing Toward Goals Assessment Summary Pt presents as a moderate complexity evaluation s/p admit for low energy and low HR. Pt presents close to his baseline with his main barrier being poor endurance. Pts poor endurance is impacting his ability to perform ADLS. Pt will benefit from OT servies. Recommend home with bathing aide. Goals Grooming Goal Independent Dressing Goal Independent Toileting Goal Independent Bathing Goal Independent Toilet Transfer Goal Independent Shower Transfer Goal Independent Days to Meet Goals 10 Frequency of Treatment Frequency Of Treatment Once a Day Treatment Plan OT Treatment Plan ADL Training,Functional Mobility,Patient/Family Education,Discharge Planning Other Treatment Recommendations and Next Endurance and energy Treatment Focus conservation activities. Discharge Recommendations OT Discharge Recommendations Home with Assistance Transportation Needs at Discharge Private Vehicle
[2020-09-07 11:36] VITALS: BP 143/69; PULSE 51; RESP 16; TEMP 36.2; O2SAT 96
--- NOTE | 2020-09-07 12:20 | PT-IP ANOTE ---
Physical therapy order received and chart reviewed. Discussed his case with his nurse. Spoke with pt who does not feel he needs physical therapy. He is aware of his activity limitations at this time. He uses a 4WW for gait at home and has a wheelchair to use as needed. Noted discharge is planned for today.
--- NOTE | 2020-09-07 12:25 | PM.DS.1 ---
History of Present Illness History of Present Illness Date Patient Seen: 09/07/20 Time Patient Seen: 12:25 Chief complaint: low pulse for about a week Narrative: This 85 year old patient of Dr. Thompson is admitted from the ED secondary to bradycardia and first-degree AV block. Reports that he had been in his usual state of health but that home health had noticed that his heart rate had been low over the last 2 weeks. Has been taking his medications regularly. He normally has home health 3 times weekly. In the last 2 visits, he has been slightly more weak than normal and they called into Dr. Lewis's office to see what to do. She advised that he go to the ED for an evaluation. Vital signs upon admission to the ED included temperature 97.8?, pulse 37, respirations 15, blood pressure 127/70, O2 saturation 99% on room air. EKG showed sinus bradycardia with a ventricular rate of 46 and AV block. VA interval was prolonged. Dr. Ramon, cardiology was consulted, and he recommended holding coreg and observing overnight. Patient does have chronic anemia, kidney disease, and COPD; this was reflected in his labs with a hemoglobin/hematocrit of 10.7/32.7, creatinine 2.71, and elevated BUN at 64. Notably, troponin was negative and his lipase was elevated at 434. He is a former smoker and has chronic shortness of breath. Chronic medical conditions include urinary incontinence, weeping edema, ostemyelitis, and diabetes mellitus type II, which are at baseline. Discharge Providers Provider Date of admission: 09/06/20 18:05 Discharge Date: 09/07/20 Primary care physician: Nieves Lewis MD Consults: 09/06/20 19:53 Consult to Discharge Planning Routine Comment: Consult to Occupational Therapy Evaluate & Treat Comment: Physician Instructions: Evaluate and treat Consult to Physical Therapy Evaluate & Treat Comment: Physician Instructions: Evaluate and Treat Discharge provider: Kylie Thomas MD Summary Hospital Course Discharge Diagnosis: 1. Bradycardia, essentially asymptomatic, secondary to first-degree AV block 2. Hypertension, chronic 3. Osteomyelitis, chronic 4. Weeping peripheral edema, chronic, at baseline 5. Anemia, chronic, at baseline 6. Diabetes mellitus type 2, chronic 7. CKD, stage IV, chronic 8. COPD, chronic 9. GERD, chronic 10. Elevated lipase, acute Hospital Course: Patient had an unremarkable night of observation; came in at his baseline and essentially stayed at his baseline throughout. No evidence of acute coronary syndrome. Per cardiology, carvedilol was held to bring up his heart rate; and, we were successful in doing that (from 45s to 60s) but his blood pressure also solis into the 140s/70s. Plan will be to tolerate this slightly elevated blood pressure and have PCP reevaluate in 1 week to see if an additional agent is desired in his age group. Patient did have some brief runs of asymptomatic V-tach at night. He is DNR/DNI. Arrhythmia was discussed with patient in the morning and he understands that sustained V-tach can result in . As patient was asymptomatic during these episodes of paroxysmal V. tachycardia, suspect this is a chronic pattern. He does not want a pacemaker or defibrillator. He will be discharged to home on his usual medications minus carvedilol. Lipase was also elevated at time of admission, thought to be due to chronic renal failure, repeat lab was trending down towards normal. Exam Vital Signs (past 8 hours): - 09/07/20 08:09 09/07/20 11:36 Temperature 96.9 F L 97.2 F L Pulse Rate 86 51 L Respiratory Rate 16 16 Blood Pressure 154/66 H 143/69 H Pulse Oximetry 95 96 Oxygen Delivery Method Nasal Cannula Oxygen Flow Rate 0 Narrative Exam Narrative: GENERAL: Alert and oriented, appearing stated age and in no acute distress. HEENT: Head normocephalic/atraumatic. LUNGS: Clear to ausculation, no audible wheezes, rhonchi or rales. CV: Normal S1 and S2 with bradycardic rate and regular rhythm. No audible murmurs, rubs or gallops. ABDOMEN: Soft, non-tender, non-distended, no organomegaly. Positive bowel sounds. EXTREMITIES: 3+ weeping edema to the level bilateral knees extremity, new dressing in place, right lower extremity. NEURO: Cranial nerves II through XII grossly intact, no focal deficits. PSYCH: Alert and oriented x 3. SKIN: Weeping edema, bilateral lower extemties with hemosiderin changes. Objective Labs Result Diagrams: 09/07/20 08:34 09/07/20 08:34 Labs: Laboratory Results - last 24 hr 09/06/20 09/06/20 09/06/20 14:44 14:44 14:44 WBC 5.7 RBC 3.28 L Hgb 10.7 L Hct 32.7 L MCV 99.9 MCH 32.8 MCHC 32.8 RDW 17.3 H Plt Count 115 L Neut % (Auto) 74.7 Lymph % (Auto) 9.8 L Carlisle % (Auto) 12.3 Eos % (Auto) 2.7 Baso % (Auto) 0.5 Neut # (Auto) 4300 Lymph # (Auto) 600 L Carlisle # (Auto) 700 Eos # (Auto) 200 Baso # (Auto) 0 Sodium 142 Potassium 4.7 Chloride 110 H Carbon Dioxide 24 BUN 64 H Creatinine 2.71 H Estimated GFR 22.5 L BUN/Creatinine Ratio 23.6 H Glucose 90 Calcium 9.7 Magnesium 2.0 Total Bilirubin 0.6 AST 33 ALT 21 Alkaline Phosphatase 68 Total Creatine Kinase 73 CK-MB (CK-2) TNP CK-MB (CK-2) Rel Index TNP Troponin I 0.015 NT-Pro-B Natriuret Pep Total Protein 6.6 Albumin 3.6 Globulin 3.0 Albumin/Globulin Ratio 1.2 Lipase 434 H TSH SARS-CoV-2 (PCR) 09/06/20 09/06/20 09/06/20 14:44 14:44 15:30 WBC RBC Hgb Hct MCV MCH MCHC RDW Plt Count Neut % (Auto) Lymph % (Auto) Carlisle % (Auto) Eos % (Auto) Baso % (Auto) Neut # (Auto) Lymph # (Auto) Carlisle # (Auto) Eos # (Auto) Baso # (Auto) Sodium Potassium Chloride Carbon Dioxide BUN Creatinine Estimated GFR BUN/Creatinine Ratio Glucose Calcium Magnesium Total Bilirubin AST ALT Alkaline Phosphatase Total Creatine Kinase CK-MB (CK-2) CK-MB (CK-2) Rel Index Troponin I NT-Pro-B Natriuret Pep 6020 H Total Protein Albumin Globulin Albumin/Globulin Ratio Lipase TSH 4.31 SARS-CoV-2 (PCR) Negative 09/07/20 09/07/20 09/07/20 08:34 08:34 08:34 WBC 13.4 H D RBC 3.45 L Hgb 11.3 L Hct 34.4 L MCV 99.7 MCH 32.7 MCHC 32.8 RDW 17.0 H Plt Count 112 L Neut % (Auto) 89.5 H Lymph % (Auto) 3.2 L Carlisle % (Auto) 6.6 Eos % (Auto) 0.3 L Baso % (Auto) 0.4 Neut # (Auto) 32349 H Lymph # (Auto) 400 L Carlisle # (Auto) 900 Eos # (Auto) 0 Baso # (Auto) 100 Sodium 142 Potassium 4.7 Chloride 110 H Carbon Dioxide 24 BUN 64 H Creatinine 2.56 H Estimated GFR 24.0 L BUN/Creatinine Ratio 25.0 H Glucose 171 H Calcium 9.7 Magnesium Total Bilirubin AST ALT Alkaline Phosphatase Total Creatine Kinase CK-MB (CK-2) CK-MB (CK-2) Rel Index Troponin I NT-Pro-B Natriuret Pep 6570 H Total Protein Albumin Globulin Albumin/Globulin Ratio Lipase 342 H TSH SARS-CoV-2 (PCR) PFSH Medical History Anemia (2009) CHF (congestive heart failure) CKD (chronic kidney disease) stage 4, GFR 15-29 ml/min Diabetes mellitus (1997) Diabetic nephropathy Edema Foot pain (2002) Gastric ulcer (1966) Hearing loss (1935) History of chronic skin ulcer History of malignant neoplasm of prostate History of urethral stricture Hypertension Infectious disease (2011) Kidney failure Lumbar spine pain Osteomyelitis (2011) Peripheral neuropathy (2002) Prostate cancer (1998) Urethral stricture 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 Urinary incontinence Urinary incontinence, mixed Surgical History Anesthesia complication History of cataract removal with insertion of prosthetic lens (2012) History of lumbar discectomy History of lumbar laminectomy History of prostate surgery (1998) History of surgery (1951) History of tonsillectomy and adenoidectomy (1947) Hx of cystoscopy (10/17/19) Family History Father Cancer Mother Heart disease Hypertension Sister Diabetes mellitus Social History household members: spouse Smoking Status: Former smoker Tobacco: How many years used: 30 alcohol intake: current Discharge Plan Discharge Plan Patient Disposition: Home Discharge orders & Medications Prescriptions: Continued Spiriva Respimat 2.5 mcg/actuation mist 2 puff INHALATION PRN PRN (Reason: Bronchospasm) RF: 0 albuterol sulfate 90 mcg/actuation HFA aerosol inhaler 2 puff INHALATION Q4-6H PRN (Reason: shortness of breath or wheezing) RF: 0 (DME) E-Z Spacer spacer See Dose Instructions .ROUTE .MEDSUPPLY Qty: 1 RF: 0 (DME) spirometers and accessories device See Dose Instructions .ROUTE .MEDSUPPLY Qty: 1 RF: 0 clobetasol 0.05 % ointment 1 applic topical BID Qty: 60 RF: 2 aspirin 81 MG tablet,delayed release (DR/EC) 81 mg PO QDAY Qty: 30 RF: 0 pyridoxine (vitamin B6) 100 MG tablet 100 mg PO QDAY Qty: 30 RF: 11 cholecalciferol (vitamin D3) [Vitamin D3] 2,000 UNIT capsule 2,000 unit PO QDAY Qty: 30 RF: 11 Lancets SEE INSTRUCTIONS Qty: 100 RF: 2 insulin lispro [Humalog KwikPen Insulin] 100 unit/mL insulin pen 10 unit SUBCUT DAILY RF: 0 (DME) Syringes 0.3ml 29 gauge 0 .Route .MEDSUPPLY Qty: 100 RF: 1 (DME) BD insulin pen needle UF short 31 gauge 5/16 Qty: 100 RF: 5 (DME) insulin syr/ndl U100 half essie 0.5 mL 31 gauge x 5/16 syringe See Rx Instructions .ROUTE .MEDSUPPLY Qty: 100 RF: 0 ferrous sulfate 324 mg (65 mg iron) tablet,delayed release (DR/EC) 324 mg PO DAILY Qty: 30 RF: 5 (DME) One Touch Verio Glucose Test Strips See Rx Instructions .Route .MEDSUPPLY Qty: 180 RF: 2 torsemide 20 mg tablet See Rx Instructions .ROUTE .COMPLEX Qty: 60 RF: 1 famotidine [Pepcid] 20 mg Tablet 20 mg PO PRN PRN (Reason: Acid Reflux) RF: 0 felodipine 2.5 mg Tablet Extended Release 24 Hr 2.5 mg PO DAILY RF: 0 Humulin N NPH U-100 Insulin 100 unit/mL suspension 10 - 20 unit SUBCUT DAILY RF: 0 amlodipine 2.5 mg tablet 2.5 mg PO DAILY RF: 0 doxycycline monohydrate 100 mg capsule 100 mg PO BID RF: 0 Discontinued carvedilol 25 mg tablet See Rx Instructions .ROUTE .COMPLEX Qty: 180 RF: 1 Follow up/Referrals: Nieves Lewis MD [Primary Care Provider] - Diet/Activity/Treatments Diet: Carb-consistent/Diabetic Discharge Data Primary Care Provider: Nieves Lewis Attending Provider: Kylie Thomas VTE Deep Vein Thrombosis/Pulmonary Embolism Present on Admission: No
--- NOTE | 2020-09-07 13:26 | PC.NURSE ---
BP: 143/69, Temp 97.2, Pulse 51. B. A&0x3. Denies pain. BLE edematous, wrapped and with compression. Calls appropriately. Discharge packet reviewed, IV removed, questions answered. Wheeled to personal vehicle, driving home. Off of unit at 1315.
--- NOTE | 2020-09-08 16:27 | CM.DPNOTE ---
DCP Note Patient DC home w/spouse 09.07.20, afternoon. Patient/spouse wanted [facility], brochure provided. F2F left for Dr Thomas to sign, RN alerted Dr Thomas of this. No F2F seen yesterday before end of shift or today 09.08.20. D/t triage needs today, unable to contact family before end of shift, Patient will need to discuss w/ Dr Thomas upon outpatient appt, that is if HH still needed at that time JW
== END 2020-09-07 13:15 | disposition home or self-care (01) ==
LOC: ED 17:28 → AC 18:06
PROVIDERS: Admitting Provider Student in an Organized Health Care Education/Training Program; Emergency Provider Emergency Medicine; Family Provider Family Medicine; PCP Family Medicine; Referring Provider Emergency Medicine; Visit Provider Student in an Organized Health Care Education/Training Program
DX: R00.1 Bradycardia, unspecified (principal); R00.2 Palpitations; Z79.82 Long term (current) use of aspirin; I25.10 Atherosclerotic heart disease of native coronary artery without angina pectoris; Z79.4 Long term (current) use of insulin; I44.0 Atrioventricular block, first degree; D64.89 Other specified anemias; J44.9 Chronic obstructive pulmonary disease, unspecified; R32 Unspecified urinary incontinence; M86.9 Osteomyelitis, unspecified; R60.9 Edema, unspecified; I13.0 Hypertensive heart and chronic kidney disease with heart failure and stage 1 through stage 4 chronic kidney disease, or unspecified chronic kidney disease; E11.22 Type 2 diabetes mellitus with diabetic chronic kidney disease; N18.4 Chronic kidney disease, stage 4 (severe); I50.9 Heart failure, unspecified; R60.0 Localized edema; K21.9 Gastro-esophageal reflux disease without esophagitis; R74.8 Abnormal levels of other serum enzymes; Z20.822 Contact with and (suspected) exposure to COVID-19
CPT/HCPCS: 36415; 71045; 80048; 80053; 82550; 82962; 83690; 83735; 83880; 84443; 84484; 85025; 87635; 93005; 93010; 96360; 96361; 96372; 97166; 97535; 99284; C9803; G0378; J1815

== ENCOUNTER → 2021-01-02 09:55 | Outpatient (CLI) | payer OTHER, SELFPAY ==
[2020-09-06 18:51] VITALS: BMI 34.8
[2021-01-02 10:44] LABS: Add Manual Diff / Slide Review NO; Basophils Absolute Auto 0 /uL (0-100); Basophils Percent Auto 0.7 % (0-2); Eosinophils Absolute Auto 300 /uL (0-450); Eosinophils Percent Auto 7.4 % (2-4); Hematocrit 34.7 % (41-53); Hemoglobin 11.4 g/dL (13.5-17.5); Lymphocytes Absolute Auto 900 /uL (1100-4500); Lymphocytes Percent Auto 19.6 % (25-40); Mean Corpuscular Hemoglobin 33.5 PG (26-34); Mean Corpuscular Volume 101.7 fL (80-100); Monocytes Absolute Auto 800 /uL (0-900); Monocytes Percent Auto 17.7 % (3-14); Neutrophils Absolute Auto 2500 /uL (1500-7000); Neutrophils Percent Auto 54.6 % (50-75); Platelet Count 168 X10^3/uL (150-400); Red Blood Cell Count 3.41 X10^6/uL (4.5-5.9); Red Cell Distribution Width 15.7 % (11.6-14.8); White Blood Cell Count 4.6 X10^3/uL (4.5-11.0)
[2021-01-02 11:03] LABS: Hemoglobin A1C% w Est Avg Glu 7.7 % (4.0-6.0)
[2021-01-02 11:05] LABS: Alanine Aminotransferase 22 IU/L (<50); Albumin 3.6 g/dL (3.5-5.0); Albumin Globulin Ratio 1.3 (1.0-2.8); Alkaline Phosphatase 86 U/L (38-126); Aspartate Aminotransferase 32 IU/L (17-59); BUN Creatinine Ratio 16.2 (6-22); Bilirubin Total 0.6 mg/dL (0.2-1.3); Blood Urea Nitrogen 48 mg/dL (9-20); Calcium 9.5 mg/dL (8.4-10.2); Carbon Dioxide 25 mmol/L (22-32); Chloride 106 mmol/L (98-107); Cholesterol 164 mg/dL (140-199); Estimated Glomerular Filt Rate 20.3 mL/min (>60); Globulin 2.8 g/dL (1.7-4.1); Glucose 91 mg/dL (80-110); HDL Cholesterol 42 mg/dL (40-60); HEMOLYSIS < 15 (0-50); LDL Cholesterol Calculated 86 mg/dL (<100); Potassium 4.5 mmol/L (3.4-5.1); Sodium 141 mmol/L (137-145); Total Protein 6.4 g/dL (6.3-8.2); Triglycerides 182 mg/dL (35-150)
[2021-01-02 11:35] LABS: TSH w/ Reflex to FT4 3.05 uIU/mL (0.47-4.68)
[2021-01-02 12:50] LABS: Creatinine Urine Random 114.4 mg/dL
[2021-01-02 13:25] LABS: Microalbumi Creatinin Ratio Ur 2132.8 ug/mg CR (<30)
== END ==
PROVIDERS: Family Provider Family Medicine; PCP Family Medicine; Referring Provider Family Medicine; Visit Provider Family Medicine
DX: I10 Essential (primary) hypertension (principal); E11.22 Type 2 diabetes mellitus with diabetic chronic kidney disease; I49.9 Cardiac arrhythmia, unspecified; N18.4 Chronic kidney disease, stage 4 (severe); Z79.4 Long term (current) use of insulin; I48.91 Unspecified atrial fibrillation
CPT/HCPCS: 36415; 80053; 80061; 82043; 82570; 83036; 84443; 85025

== ENCOUNTER → 2021-01-08 11:56 | Outpatient (CLI) | payer OTHER, SELFPAY ==
[2020-09-06 18:51] VITALS: BMI 34.8
[2021-01-08 13:33] LABS: Folate 10.1 ng/mL (2.76-20.0); Vitamin B12 > 1000 pg/mL (239-931)
== END ==
PROVIDERS: Family Provider Family Medicine; PCP Family Medicine; Visit Provider Family Medicine
DX: R79.89 Other specified abnormal findings of blood chemistry (principal); R80.9 Proteinuria, unspecified
CPT/HCPCS: 82607; 82746

== ENCOUNTER → 2021-02-05 14:50 | Outpatient (CLI) | payer OTHER, SELFPAY ==
[2020-09-06 18:51] VITALS: BMI 34.8
--- NOTE | 2021-02-05 14:52 | DI.ECHO.S_ITS ---
[place] +---------+ [facility] +---------+ : : [address] : : : : [id number] : : : : Phone: [phone]---------+ Echocardiogram Report + + :Name: LUIS ALBERTO DE LA ROSA Study Date: 02/05/2021 Height: 72 in : :[facility] ReadingLocation: Weight: 252 lb: : Gender: Male BSA: 2.4 m2 : :: 1935 Age: 85 yrs : :Reason For Study: ATRIAL FIBRILLATION, PVCS : :Ordering Physician: JEREMIE, : :JESSICA Performed By: Keisha Wilson : :Referring: RUDDY VO : + + Interpretation Summary 1) Normal left ventricular thickness, size, wall motion, and systolic function (EF 55-60%). 2) Normal right ventricular size and function. 3) There is mild aortic stenosis (valve area 1.7cm2, mean gradient 9mmHg, severity ratio 0.43). 4) Compared to the Echo done 11/03/2018, mild aortic stenosis is present. Procedure: A two-dimensional transthoracic echocardiogram with color flow and Doppler was performed. The study quality was technically difficult. Comparison is made with the echocardiogram of 11/03/2018. Patient denied the use of Definity contrast. The patient had frequent PVCs during the exam. The patient was in atrial fibrillation with heart rates between 70-125 bpm during the exam. Left Ventricle: The left ventricle is normal in size and wall thickness. The ejection fraction is estimated to be 55-60%. Left ventricular systolic function appears normal without focal wall motion abnormalities. Diastolic function could not be accurately assessed due to atrial fibrillation. Right Ventricle: The right ventricle is mildly dilated. The right ventricular systolic function is normal. Atria: The left atrium is mildly dilated. Right atrial size is normal. There is no Doppler evidence for an interatrial shunt. Mitral Valve: There is mild mitral annular calcification. The mitral valve leaflets are mildly calcified. There is trace mitral regurgitation. Aortic Valve: The aortic valve is trileaflet. The aortic valve is moderately calcified. There is discrete nodular thickening of the non- coronary cusp. There is moderate aortic valve sclerosis. There is mild aortic stenosis. No aortic regurgitation is present. Tricuspid Valve: The tricuspid valve is not well visualized. There is mild tricuspid regurgitation. Pulmonic Valve: The pulmonic valve is not well seen, but is grossly normal. There is trace pulmonic regurgitation. Great Vessels: The aortic root is normal size. The dimensions of the ascending aorta are normal. The inferior vena cava was not visualized. Pericardium/ Pleura There is no pericardial effusion. There is no pleural effusion. MMode/2D Measurements & Calculations LVIDd: 5.0 cm LVOT diam: 2.3 cm LVIDs: 3.3 cm Ao root diam: 3.1 cm FS: 33.3 % asc Aorta Diam: 3.3 cm IVSd: 0.85 cm Ao Arch Diam (Prox Trans): 3.0 cm LVPWd: 1.1 cm LV becerra. diameter/BSA (cm/m^2): 2.1 LV sys. diameter/BSA (cm/m^2): 1.4 LA A2 area: 27.4 cm2 RA long axis: 6.2 cm LA A4 area: 22.4 cm2 RA area: 20.7 cm2 LA length (vol): 6.3 cm RA vol: 58.1 ml LA vol: 82.4 ml RA : 24.7 ml/m2 LA vol index: 35.0 ml/m2 RVD1 (basal): 4.3 cm TAPSE: 1.8 cm Doppler Measurements & Calculations Ao V2 max: 211.6 cm/sec LVOT Max Galen: 89.8 cm/sec Ao V2 mean: 141.9 cm/sec LV V1 max P.2 mmHg Ao max P.1 mmHg LV V1 VTI: 16.3 cm Ao mean P.4 mmHg ROMAN(I,D): 1.7 cm2 Ao V2 VTI: 38.2 cm ROMAN(V,D): 1.7 cm2 sev ratio: 0.43 ROMAN indexed to BSA (cm^2/m^2): 0.73 MV E max galen: 96.2 cm/sec PA V2 max: 122.8 cm/sec MV A max galen: 133.5 cm/sec PA V2 mean: 85.0 cm/sec MV E/A: 0.72 PA mean P.1 mmHg Med Peak E' Galen: 5.5 cm/sec PA pr(Accel): 43.0 mmHg E/E' med: 17.6 Lat Peak E' Galen: 9.3 cm/sec E/E' lat: 10.3 E/e' average: 14.0 MV dec time: 0.27 sec SV(LVOT): 65.4 ml Reading Physician:11:27 AM
== END ==
PROVIDERS: Family Provider Family Medicine; PCP Family Medicine; Referring Provider Family Medicine; Visit Provider Family Medicine
DX: I08.2 Rheumatic disorders of both aortic and tricuspid valves (principal); I48.91 Unspecified atrial fibrillation; R00.1 Bradycardia, unspecified; I44.0 Atrioventricular block, first degree; I25.10 Atherosclerotic heart disease of native coronary artery without angina pectoris
CPT/HCPCS: 93306

== ENCOUNTER 2021-07-09 11:45 | Inpatient (IN) | payer OTHER, SELFPAY ==
[2020-09-06 18:51] VITALS: BMI 34.8
[2021-07-09] VITALS (30 sets, daily range): BP systolic 104–149; BP diastolic 54–83; PULSE 37–88; RESP 12–38; TEMP 35.9–36.4; O2SAT 90–99; BMI 32.3
[2021-07-09 12:15] LABS: Add Manual Diff / Slide Review NO; Basophils Absolute Auto 0 /uL (0-100); Basophils Percent Auto 0.3 % (0-2); Eosinophils Absolute Auto 0 /uL (0-450); Eosinophils Percent Auto 0.4 % (2-4); Hematocrit 24.5 % (41-53); Lymphocytes Absolute Auto 600 /uL (1100-4500); Lymphocytes Percent Auto 9.4 % (25-40); Mean Corpuscular HGB Conc 32.9 % (30-36); Mean Corpuscular Hemoglobin 32.7 PG (26-34); Mean Corpuscular Volume 99.5 fL (80-100); Monocytes Absolute Auto 400 /uL (0-900); Monocytes Percent Auto 6.6 % (3-14); Neutrophils Absolute Auto 4900 /uL (1500-7000); Neutrophils Percent Auto 83.3 % (50-75); Platelet Count 100 X10^3/uL (150-400); Red Blood Cell Count 2.46 X10^6/uL (4.5-5.9); Red Cell Distribution Width 16.4 % (11.6-14.8); White Blood Cell Count 5.9 X10^3/uL (4.5-11.0)
[2021-07-09 12:25] LABS: Alanine Aminotransferase 33 IU/L (<50); Albumin 3.4 g/dL (3.5-5.0); Albumin Globulin Ratio 1.2 (1.0-2.8); Alkaline Phosphatase 79 U/L (38-126); Aspartate Aminotransferase 32 IU/L (17-59); Bilirubin Total 0.4 mg/dL (0.2-1.3); Calcium 9.6 mg/dL (8.4-10.2); Carbon Dioxide 32 mmol/L (22-32); Chloride 102 mmol/L (98-107); Creatine Kinase 26 U/L (55-170); Estimated Glomerular Filt Rate 17 mL/min (>60); Globulin 2.8 g/dL (1.7-4.1); Glucose 217 mg/dL (80-110); HEMOLYSIS < 15 (0-50); Lipase 234 U/L (23-300); Potassium 4.4 mmol/L (3.4-5.1); Sodium 144 mmol/L (137-145); Total Protein 6.2 g/dL (6.3-8.2)
[2021-07-09 12:32] LABS: BUN Creatinine Ratio 37.1 (6-22); Blood Urea Nitrogen 126 mg/dL (9-20)
[2021-07-09 12:37] LABS: Troponin I 0.019 ng/mL (0.01-0.034)
--- NOTE | 2021-07-09 13:26 | ED.GENADULT ---
HPI - General Adult General Chief complaint: Weakness Stated complaint: weakness Time Seen by Provider: 07/09/21 12:12 Source: patient and EMS Mode of arrival: EMS History of Present Illness HPI narrative: Patient is an 86-year-old male who arrives by EMS for evaluation of a couple days of progressively worsening shortness of breath and weakness. The patient has chronic lower extremity swelling. Is being seen by wound care for this. He normally gets around with a walker at home. Is bradycardic but has had a low heart rate in the past. His son states there has been discussions about pacemakers in the past with the patient has declined. He lives at home with his who has Alzheimer's disease. He also states that for the past 24 hours he has had abdominal pain. No urinary symptoms. No change in bowel habits. Some nausea but no vomiting. No fevers. The abdominal pain has since resolved and he was not having any of symptoms the time of my evaluation. He is an insulin-dependent diabetic does manage all of his medications at home. He states that this morning he was so weak that he could even get out of his bed and use his walker to get around. Related Data Home Medications Medication Instructions Recorded Confirmed albuterol sulfate 90 mcg/actuation 2 puff INHALATION Q4-6H PRN gram 03/21/19 12/27/20 aerosol inhaler tiotropium bromide 2.5 2 puff INHALATION PRN PRN 03/21/19 12/27/20 mcg/actuation mist for inhalation (Spiriva Respimat) famotidine 20 mg tablet (Pepcid) 20 mg PO PRN PRN 04/24/19 12/27/20 felodipine 2.5 mg tablet,extended 2.5 mg PO DAILY 10/27/19 12/27/20 release 24 hr amlodipine 2.5 mg tablet 2.5 mg PO DAILY 09/06/20 12/27/20 doxycycline monohydrate 100 mg 100 mg PO BID 09/06/20 12/27/20 capsule Previous Rx's Medication Instructions Recorded aspirin 81 mg tablet,delayed 81 mg PO QDAY #30 tab 08/31/16 release cholecalciferol (vitamin D3) 50 2,000 unit PO QDAY #30 cap 08/31/16 mcg (2,000 unit) capsule (Vitamin D3) pyridoxine (vitamin B6) 100 mg 100 mg PO QDAY #30 tab 08/31/16 tablet Lancets ea SEE INSTRUCTIONS #100 12/16/16 inhalational spacing device (E-Z #1 each 10/18/18 Spacer) spirometers and accessories #1 each 10/18/18 Syringes #100 each 06/16/19 BD insulin pen needle UF short #100 each 07/06/19 insulin syr/ndl U100 half essie 0.5 #100 each 05/06/20 mL 31 gauge x 5/16 Disabled Parking Permit #1 ea 09/20/20 Diabetic Footwear and Insoles #1 ea 10/07/20 insulin lispro 100 unit/mL 10 unit (0.1 mL) SUBCUT DAILY #15 11/20/20 subcutaneous pen (Humalog KwikPen ml (U-100) Insulin) rivaroxaban 15 mg tablet 15 mg PO DAILY #30 tab 12/30/20 insulin NPH isoph U-100 human 100 10 - 20 unit (0.1 - 0.2 mL) SUBCUT 01/14/21 unit/mL subcutaneous suspension DAILY #10 ml (Humulin N NPH U-100 Insulin (isophane susp)) clobetasol 0.05 % topical ointment 1 applic TOPICAL BID #60 g 03/06/21 ferrous sulfate 324 mg (65 mg 324 mg PO DAILY #30 tab 03/17/21 iron) tablet,delayed release One Touch Verio Glucose Test Strips #180 each 04/28/21 torsemide 20 mg tablet See Rx Instructions .ROUTE 07/03/21 .COMPLEX #60 tab Allergies Allergy/AdvReac Type Severity Reaction Status Date / Time metolazone [METOLAZONE] Allergy Severe VERY DIZZY Verified 12/27/20 10:44 morphine [MORPHINE] Allergy Unknown large Verified 12/27/20 10:44 welts, itching Penicillins [PENICILLINS] Allergy Unknown red face Verified 12/27/20 10:44 NSAIDS (Non-Steroidal AdvReac Severe RENAL Verified 12/27/20 10:44 Anti-Inflamma INSUFF [NSAIDS (NON-STEROIDAL ANTI-INFLAMMA] Review of Systems Constitutional Constitutional: Denies body ache(s), Denies chills, Reports fatigue, Denies fever(s) and Reports lethargy ENT Ears, Nose, Mouth, and Throat: Denies vertigo and Denies dizziness Cardiovascular Cardiovascular: Denies chest pain and Denies dyspnea Respiratory Respiratory: Denies cough and Denies dyspnea Gastrointestinal Gastrointestinal: Reports abdominal pain, Denies change in bowel habits, Reports nausea and Denies vomiting Genitourinary Genitourinary: Denies dysuria Musculoskeletal Musculoskeletal: Denies stiffness Integumentary/Breasts Skin/Breast: Reports system reviewed and no additional complaints, except as documented Neurologic Neurologic: Denies vertigo and Denies dizziness Endocrine Endocrine: Reports fatigue Hematologic/Lymphatic On Anticoagulants: Yes Allergic/Immunologic Allergic/Immunologic: Reports system reviewed and no additional complaints, except as documented Patient History Medical History Anemia (2009) CHF (congestive heart failure) CKD (chronic kidney disease) stage 4, GFR 15-29 ml/min Diabetes mellitus (1997) Diabetic nephropathy Edema Foot pain (2002) Gastric ulcer (1966) Hearing loss (1935) History of chronic skin ulcer History of malignant neoplasm of prostate History of urethral stricture Hypertension Infectious disease (2011) Kidney failure Lumbar spine pain Osteomyelitis (2011) Peripheral neuropathy (2002) Prostate cancer (1998) Urethral stricture 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 Urinary incontinence Urinary incontinence, mixed Surgical History Anesthesia complication History of cataract removal with insertion of prosthetic lens (2012) History of lumbar discectomy History of lumbar laminectomy History of prostate surgery (1998) History of surgery (1951) History of tonsillectomy and adenoidectomy (1947) Hx of cystoscopy (10/17/19) Family History Father Cancer Mother Heart disease Hypertension Sister Diabetes mellitus Social History household members: spouse Smoking Status: Former smoker Tobacco: How many years used: 30 alcohol intake: current Smoking Status: Former smoker alcohol intake frequency: a few times a week Alcohol type: wine Substance Use Type: does not use Exam Initial Vital Signs Initial Vital Signs: Vital Signs Temperature 97.0 F L 07/09/21 11:45 Pulse Rate 88 07/09/21 11:45 Respiratory Rate 16 07/09/21 11:45 Blood Pressure 142/64 H 07/09/21 11:45 Pulse Oximetry 99 07/09/21 11:45 Const General: comfortable HENMT Head: normal to inspection and normocephalic Resp Effort & Inspection: normal respiratory effort Auscultation: clear to auscultation bilaterally Cardio Rate: bradycardic Rhythm: abnormal rhythm GI Inspection: non-distended Palpation: soft and No tender Other: Bruising around his umbilicus where he injects himself with insulin Skin Other: Bruising around the umbilicus Neuro General: patient alert, patient awake and moves all extremities Speech: speech normal Extrem Other: Swelling bilateral lower extremities with chronic excoriation. Psych Appearance: grossly normal Scores GCS Cruzito coma scale eye opening: Spontaneous Cruzito coma scale verbal response: Orientated Lillian coma scale motor response: Obey commands Lillian coma scale total score: 15 Course Orders Ordered: ED Orders 07/09/21 11:56 Complete Blood Count AUTO DIFF Stat Comprehensive Metabolic Panel Stat Lipase Stat Troponin & CK Cardiac Panel Stat 07/09/21 12:02 EKG-12 Lead Stat 07/09/21 13:27 Consult to MATERIAL INSPECTOR - Occupational Medicine Specialist Stat CT abdomen pelvis wo con Stat 07/09/21 14:30 Urinalysis and Microscopic Stat 07/09/21 15:22 NM pul vent and perfusion Stat Vital Signs Vital signs: Vital Signs - 8 hr 07/09/21 11:45 07/09/21 11:49 07/09/21 11:50 Temperature 97.0 F L Pulse Rate 88 62 Respiratory Rate 16 16 Blood Pressure 142/64 H 142/64 H Pulse Oximetry 99 97 97 07/09/21 12:00 07/09/21 12:30 07/09/21 13:00 Temperature Pulse Rate 61 62 60 Respiratory Rate 16 12 12 Blood Pressure 123/60 120/58 L Pulse Oximetry 99 96 98 07/09/21 13:01 07/09/21 13:30 07/09/21 13:45 Temperature Pulse Rate 60 60 62 Respiratory Rate 13 15 15 Blood Pressure 127/60 149/64 H Pulse Oximetry 98 98 90 L 07/09/21 14:00 07/09/21 14:30 07/09/21 14:31 Temperature Pulse Rate 62 67 67 Respiratory Rate 13 19 Blood Pressure 104/54 L 132/63 Pulse Oximetry 97 98 98 07/09/21 15:00 07/09/21 15:01 07/09/21 15:30 Temperature Pulse Rate 52 L 46 L 48 L Respiratory Rate 13 12 15 Blood Pressure 138/64 Pulse Oximetry 98 98 98 07/09/21 15:31 Temperature Pulse Rate 50 L Respiratory Rate 14 Blood Pressure 132/60 Pulse Oximetry 98 Medical Decision Making Lab Data Lab results reviewed: Yes I reviewed the patient's lab results. Result diagrams: 07/09/21 11:56 07/09/21 11:56 Labs: Lab Results 07/09/21 07/09/21 07/09/21 Range/Units 11:56 11:56 11:56 WBC 5.9 (4.5-11.0) X10^3/uL RBC 2.46 L (4.5-5.9) X10^6/uL Hgb 8.0 L (13.5-17.5) g/dL Hct 24.5 L (41-53) % MCV 99.5 (80-100) fL MCH 32.7 (26-34) PG MCHC 32.9 (30-36) % RDW 16.4 H (11.6-14.8) % Plt Count 100 L (150-400) X10^3/uL Neut % (Auto) 83.3 H (50-75) % Lymph % (Auto) 9.4 L (25-40) % Jessamine % (Auto) 6.6 (3-14) % Eos % (Auto) 0.4 L (2-4) % Baso % (Auto) 0.3 (0-2) % Neut # (Auto) 4900 (0542-3182) /uL Lymph # (Auto) 600 L (2647-0173) /uL Jessamine # (Auto) 400 (0-900) /uL Eos # (Auto) 0 (0-450) /uL Baso # (Auto) 0 (0-100) /uL Sodium 144 (137-145) mmol/L Potassium 4.4 (3.4-5.1) mmol/L Chloride 102 (98-107) mmol/L Carbon Dioxide 32 (22-32) mmol/L BUN 126 H* (9-20) mg/dL Creatinine 3.40 H (0.66-1.25) mg/dL Estimated GFR 17 L (>60) mL/min BUN/Creatinine Ratio 37.1 H (6-22) Glucose 217 H (80-110) mg/dL Calcium 9.6 (8.4-10.2) mg/dL Total Bilirubin 0.4 (0.2-1.3) mg/dL AST 32 (17-59) IU/L ALT 33 (<50) IU/L Alkaline Phosphatase 79 (38-126) U/L Total Creatine Kinase 26 L (55-170) U/L CK-MB (CK-2) TNP CK-MB (CK-2) Rel Index TNP Troponin I 0.019 (0.01-0.034) ng/mL Total Protein 6.2 L (6.3-8.2) g/dL Albumin 3.4 L (3.5-5.0) g/dL Globulin 2.8 (1.7-4.1) g/dL Albumin/Globulin Ratio 1.2 (1.0-2.8) Lipase 234 (23-300) U/L Urine Color Urine Appearance Urine pH (4.5-8.0) Ur Specific Lawrence (1.000-1.035) Urine Protein (Negative) Urine Glucose (UA) (Negative) g/dL Urine Ketones (NEGATIVE) Urine Occult Blood (Negative) Urine Nitrate (Negative) Urine Bilirubin (NEGATIVE) Urine Urobilinogen (0.2) E.U./dL Ur Leukocyte Esterase (NEGATIVE) Urine RBC (0-5/HPF) Urine WBC (0-5/HPF) Ur Squamous Epith Cells (0-5/HPF) Urine Bacteria (None) Ur Culture Indicated? 07/09/21 Range/Units 14:30 WBC (4.5-11.0) X10^3/uL RBC (4.5-5.9) X10^6/uL Hgb (13.5-17.5) g/dL Hct (41-53) % MCV (80-100) fL MCH (26-34) PG MCHC (30-36) % RDW (11.6-14.8) % Plt Count (150-400) X10^3/uL Neut % (Auto) (50-75) % Lymph % (Auto) (25-40) % Jessamine % (Auto) (3-14) % Eos % (Auto) (2-4) % Baso % (Auto) (0-2) % Neut # (Auto) (6864-8573) /uL Lymph # (Auto) (0475-1270) /uL Jessamine # (Auto) (0-900) /uL Eos # (Auto) (0-450) /uL Baso # (Auto) (0-100) /uL Sodium (137-145) mmol/L Potassium (3.4-5.1) mmol/L Chloride (98-107) mmol/L Carbon Dioxide (22-32) mmol/L BUN (9-20) mg/dL Creatinine (0.66-1.25) mg/dL Estimated GFR (>60) mL/min BUN/Creatinine Ratio (6-22) Glucose (80-110) mg/dL Calcium (8.4-10.2) mg/dL Total Bilirubin (0.2-1.3) mg/dL AST (17-59) IU/L ALT (<50) IU/L Alkaline Phosphatase (38-126) U/L Total Creatine Kinase (55-170) U/L CK-MB (CK-2) CK-MB (CK-2) Rel Index Troponin I (0.01-0.034) ng/mL Total Protein (6.3-8.2) g/dL Albumin (3.5-5.0) g/dL Globulin (1.7-4.1) g/dL Albumin/Globulin Ratio (1.0-2.8) Lipase (23-300) U/L Urine Color Yellow Urine Appearance Clear Urine pH 5.0 (4.5-8.0) Ur Specific Lawrence <=1.005 (1.000-1.035) Urine Protein Trace H (Negative) Urine Glucose (UA) Negative (Negative) g/dL Urine Ketones Negative (NEGATIVE) Urine Occult Blood Negative (Negative) Urine Nitrate Negative (Negative) Urine Bilirubin Negative (NEGATIVE) Urine Urobilinogen 0.2 (0.2) E.U./dL Ur Leukocyte Esterase Negative (NEGATIVE) Urine RBC 0-1/hpf (0-5/HPF) Urine WBC None seen (0-5/HPF) Ur Squamous Epith Cells 0-1 /hpf (0-5/HPF) Urine Bacteria None seen (None) Ur Culture Indicated? Cult not indicated Imaging Data CT scan - abdomen/pelvis: Radiologist's Impression: [address] [address] [address] Scan Report Signed Patient: Donato Beth MR#: [id number] : 1935 Acct:[id number] Age/Sex: 86 / M Date of Service: 07/09/21 Loc: ED Accession Number: [id number] ?? Procedure: CT abdomen pelvis wo con Ordering Provider: Reji Sewell D.O. PROCEDURE:? CT ABDOMEN PELVIS WO CON ? INDICATIONS:? abdominal pain ? TECHNIQUE:? Axial sections were acquired from the lung bases to the pubic symphysis.? Coronal and sagittal reformats were performed.? For radiation dose reduction, the following was used: ?automated exposure control, adjustment of mA and/or kV according to patient size.? ? COMPARISON:? [facility], CT, ABDOMEN/PELVIS WITHOUT CONTRAS, 05/28/2014, 14:35. ? FINDINGS:? Image quality:? Excellent.? ? Lung bases:? Bibasilar atelectasis.? No pleural effusion.? ? Heart:? Prominent size.? Aortic valvular calcification. ? URINARY: Right Kidney: ? Punctate nonobstructing kidney stone versus vascular calcification, ().? No hydronephrosis.? Small cyst with increased density.? Largest measures 0.9 cm, (06/11).? Right Ureter:? No hydroureter.? ? Left Kidney: ? Vascular calcifications.? No definite stones.? No hydronephrosis.? Exophytic lesion is no longer present. Left Ureter:? No hydroureter.? ? Bladder:? Normal wall thickness. No stones. ? ? ? ABDOMEN: Liver:? Unremarkable.? ? Gallbladder:? Prominent size.? No calcified gallstones.? ? Biliary ducts:? Unremarkable.? ? Pancreas:? Unremarkable.? ? Spleen:? Unremarkable.? ? Adrenal Glands:? Unremarkable.? ? ? Stomach and Bowel:? The stomach is prominent.? Trace thickening at the proximal duodenum. ?No small bowel obstruction.? Diverticulosis.? Normal appendix.? Peritoneum:? No abnormal intraperitoneal fluid.? No free air.? ? Ventral Wall: ? No hernia.? Mild flank edema.? Abdominal Nodes:? No enlarged retroperitoneal or mesenteric lymph nodes.? Vessels:? Aorta and inferior vena cava are normal in size.? Circumferential calcified atherosclerotic plaque.? Cystic structure at the right pelvic brim a with rim calcification measuring at 2.6 cm, (), unchanged since 2015 suggesting a benign etiology.? There are vascular clips in this region.? ? PELVIS: Pelvic Organs:? Prostate gland is absent. Pelvic Nodes:? Left groin node measuring 2 cm short axis diameter, (), remotely 1.5 cm. Miscellaneous: No inguinal hernias are seen. ? ? ? Bones:? Left intramedullary femoral stephanie.? No suspicious lesion.? No compression fracture. ?Multilevel DDD. ? IMPRESSION:? 1. Stomach is distended.? Question mild thickening at the proximal duodenum.? This could be due to a duodenal ulcer.? No free fluid.? No free air.? Consider further evaluation with endoscopy. ? 2. No hydronephrosis.? No definite kidney stones. ? 3. Left kidney subcentimeter cyst with increased density.? These are indeterminate for hyperdense cysts versus complicated cyst versus solid mass.? These could be further characterized with MRI renal protocol or CT. ? 4. Gallbladder is prominent size.? No pericholecystic fluid is seen. ? 5. Enlarged left groin node measuring 2 cm short axis diameter.? Ultrasound-guided biopsy could be performed for tissue diagnosis. ? ? ? Dictated by: Keshav Price M.D. on 07/09/2021 at 14:03 ? ? Approved by: Keshav Price M.D. on 07/09/2021 at 14:20 ECG Data Attestation: I personally reviewed and interpreted this ECG as follows: Interpretation: Sinus rhythm Ventricular rate of 74 Left axis deviation Normal QRS Nonspecific ST T wave changes MDM Narrative Medical decision making narrative: Patient is bradycardic with periods of sinus rhythm another periods with what appears to be a first-degree AV block. The bradycardia is not new for him. There has been discussions in the past about a pacemaker but the patient has declined. This bradycardia proceeds his presenting symptoms today. He had abdominal discomfort earlier today but that has resolved. He denies any change in bowel habits. Some nausea but no vomiting. Bruising around his umbilicus but this is from when he gives himself his insulin shots. His lower extremity abnormalities are not new as well. He does seem to wound care for this. Patient is unable to sit up in bed. He is unable to stand. CT scan of the abdomen shows a distended stomach but no signs of perforations or abscesses or bowel obstructions. Given his presenting symptoms patient does say to be discharged home. Discussed the case with Dr. Lewis who the patient's primary provider. We will admit for further evaluation treatment. Did discuss the admission with the patient and son at bedside. He expressed understanding and agreement. After patient had been admitted and seen by the admitting provider he had a bowel movement. Nursing staff went in to change the patient and they stated that he had a large bloody bowel movement. Patient admits that this is the 1st time this has happened. The admitting provider was notified and additional lab tests ordered. Discharge Plan Departure Patient Disposition: Admitted as Observation Clinical Impression: Weakness, Bradycardia Admit Date/Time: 07/09/21 15:54 Admit Provider: Nieves Lewsi
--- NOTE | 2021-07-09 13:27 | DI.CT.S_ITS ---
PROCEDURE: CT ABDOMEN PELVIS WO CON INDICATIONS: abdominal pain TECHNIQUE: Axial sections were acquired from the lung bases to the pubic symphysis. Coronal and sagittal reformats were performed. For radiation dose reduction, the following was used: automated exposure control, adjustment of mA and/or kV according to patient size. COMPARISON: [facility], CT, ABDOMEN/PELVIS WITHOUT CONTRAS, 05/28/2014, 14:35. FINDINGS: Image quality: Excellent. Lung bases: Bibasilar atelectasis. No pleural effusion. Heart: Prominent size. Aortic valvular calcification. URINARY: Right Kidney: Punctate nonobstructing kidney stone versus vascular calcification, (3/35). No hydronephrosis. Small cyst with increased density. Largest measures 0.9 cm, (3/30). Right Ureter: No hydroureter. Left Kidney: Vascular calcifications. No definite stones. No hydronephrosis. Exophytic lesion is no longer present. Left Ureter: No hydroureter. Bladder: Normal wall thickness. No stones. ABDOMEN: Liver: Unremarkable. Gallbladder: Prominent size. No calcified gallstones. Biliary ducts: Unremarkable. Pancreas: Unremarkable. Spleen: Unremarkable. Adrenal Glands: Unremarkable. Stomach and Bowel: The stomach is prominent. Trace thickening at the proximal duodenum. No small bowel obstruction. Diverticulosis. Normal appendix. Peritoneum: No abnormal intraperitoneal fluid. No free air. Ventral Wall: No hernia. Mild flank edema. Abdominal Nodes: No enlarged retroperitoneal or mesenteric lymph nodes. Vessels: Aorta and inferior vena cava are normal in size. Circumferential calcified atherosclerotic plaque. Cystic structure at the right pelvic brim a with rim calcification measuring at 2.6 cm, (3/81), unchanged since 2014 suggesting a benign etiology. There are vascular clips in this region. PELVIS: Pelvic Organs: Prostate gland is absent. Pelvic Nodes: Left groin node measuring 2 cm short axis diameter, (3/101), remotely 1.5 cm. Miscellaneous: No inguinal hernias are seen. Bones: Left intramedullary femoral stephanie. No suspicious lesion. No compression fracture. Multilevel DDD. IMPRESSION: 1. Stomach is distended. Question mild thickening at the proximal duodenum. This could be due to a duodenal ulcer. No free fluid. No free air. Consider further evaluation with endoscopy. 2. No hydronephrosis. No definite kidney stones. 3. Left kidney subcentimeter cyst with increased density. These are indeterminate for hyperdense cysts versus complicated cyst versus solid mass. These could be further characterized with MRI renal protocol or CT. 4. Gallbladder is prominent size. No pericholecystic fluid is seen. 5. Enlarged left groin node measuring 2 cm short axis diameter. Ultrasound-guided biopsy could be performed for tissue diagnosis. Dictated by: Keshav Price M.D. on 07/09/2021 at 14:03 Approved by: Keshav Price M.D. on 07/09/2021 at 14:20
[2021-07-09 14:50] LABS: Appearance Urine UA CLEAR; Bilirubin Urine UA NEGATIVE (NEGATIVE); Color Urine UA YELLOW; Glucose Urine UA NEGATIVE (Negative); Ketones Urine UA NEGATIVE (NEGATIVE); Leukocyte Esterase Urine UA NEGATIVE (NEGATIVE); Nitrite Urine UA NEGATIVE (Negative); Occult Blood Urine UA NEGATIVE (Negative); Protein Urine UA TRACE (Negative); Specific Gravity Urine UA <=1.005 (1.000-1.035); Urobilinogen Urine UA 0.2 E.U./dL (0.2)
[2021-07-09 15:00] LABS: Bacteria Urine None Seen; Culture Indicated Urine Cult Not Indicated; RBC Urine 0-1/HPF (0-5/HPF); Squamous Epithelial Cell Urine 0-1 /HPF (0-5/HPF); WBC Urine None Seen (0-5/HPF)
--- NOTE | 2021-07-09 15:00 | PC.NURSE ---
1500 attempted ambulation trial, pt unable to rise to seated position on bed with 1pa, became soa and tachy with attempt, states I can't do any more
--- NOTE | 2021-07-09 15:22 | DI.NM.S_ITS ---
PROCEDURE: NM PUL VENT AND PERFUSION RADIOPHARMACEUTICAL: 37.7 mCi Tc-99m DTPA aerosol by inhalation and 10.50 mCi Tc-99m MAA intravenously. INDICATIONS: eval for PE TECHNIQUE: Ventilation images were obtained first with Tc-99m DTPA aerosol. Subsequently, perfusion images were acquired after intravenous injection of Tc-99m MAA. Anterior, posterior, SPEAR, GABONESE, RPO, LPO, left and right lateral views were obtained. COMPARISON: [facility], CR, XR CHEST 1V, 07/09/2021, 18:18. FINDINGS: Perfusion images demonstrate no large, mismatch, perfusion defects in a vascular distribution. Ventilation images demonstrate no areas of hypoventilation. IMPRESSION: Probability for pulmonary embolus is low (15%). Dictated by: Nerissa Singh MD, PhD on 07/10/2021 at 10:14 Approved by: Nerissa Singh MD, PhD on 07/10/2021 at 10:23
--- NOTE | 2021-07-09 16:12 | CM.IDA ---
DCP Assessment Patient is 86 y/o male who presents to ED via EMS due to concern for weakness and abdominal pain. Patient also presents with weeping wounds on both legs and feet. Patient has hx of Bradycardia, CKD, CAD, Depression, Essential Hypertension, & Type 2 Diabetes. Patient's PCP is Dr. Lewis, patient has [facility], [facility], and [facility] insurance. REFLOW OPERATOR enters room to meet with patient and son. Patient is A/O. Son recommends REFLOW OPERATOR speaking privately while patient rests. Patient resides at home with . Son/DPOA Reji is currently in the process of touring [facility] to seek out the best higher level of care and halfway care option for both patient and . Patient's son Reji resides in [place], [place], patient has another son in [place], [place] and another son who resides in [place]. Patient currently has manager medicare HH through [facility] three days a week. REFLOW OPERATOR calls [facility] to inform them of patient's admit to and to confirm services provided. Per son, patient receives regular outpatient f/u care regarding patient's leg wounds at [facility] with Dr. Ann, dermatology and various specialist for medical concerns. Per son it is reported that patient and receive services from [facility] caregivers in [place] for cleaning and cooking ADLs. Son reports that they are less receptive to this help and caregiver only comes on to cook meal. Patient fails ambulation trial and ED provider Dr. Sewell consults with PCP Dr. Lewis and patient is accepted to acute care for further medical evaluation. Patient's son has questions and concerns about [facility] vs. Hospice, changing patient's insulin medication or if patient is in need a pacemaker/good candidate for pacemaker. Son reports he will be visiting patient tomorrow (07/10/21) Plan: Patient to be admitted to acute care, DCP to f/u with POC and f/u with family as they continue to seek halfway care options for patient and . SHAE Quinones Discharge Planning/Care Management CM Discharge Assessment Start: 07/09/21 16:09 Freq: Status: Active Protocol: Document 07/09/21 16:09 LN (Rec: 07/09/21 16:11 LN [id number]) Discharge Planning Assessment Assigned Bobbin Presser SHAE Cerna/Assigned Designee Name Reji Beth (son) Contact Information [phone] Advance Directives? Yes Advance Directives on File Yes History Provided By Family Member,Medical Record Has Patient been admitted in last 30 No days? Prior Living Arrangements House Household Members spouse Type of transporation used prior to Drives own vehicle admit Independent with ADL's Yes Is patient alert and oriented? Yes Needs Assistance With Meal Prep,Home Chores / Shopping Caregiver for Another Patient and take care of each other DME Already Rented / Owned FWW / Walker Please Provide Date Initial DC 07/09/21 Assessment Was Performed
--- NOTE | 2021-07-09 16:47 | P.HP_ITS ---
History of Present Illness History of Present Illness Date Patient Seen: 07/09/21 Time Patient Seen: 16:50 Chief complaint: weakness Narrative: Pt is an 86yo man with CKD, bradycardia, CAD, depression, HTN, GERD, chronic osteomyelitis, DM Type 2, and hx of prostate cancer who presented with abdominal pain and weakness. The pt reports that he has been feeling progressively weaker for quite some time. This has been significantly worse for the past couple days. His son is currently visiting, and notes that the pt spends nearly all day in his recliner, where he sleeps as well. The pt reports this morning he developed significant abdominal pain. It was centrally located and did not radiate. He had his home health aid assist him to the restroom, but he was unable to have a BM or urinate. He then went to rise from the toilet to his walker, but was unable to due to profound weakness. His son was contacted, and the pt was ultimately brought to the ED for evaluation. The pt reports that the abdominal pain was acute in onset, and a strong aching sensation. He denies any recent dysuria. He denies any change in his BMs, but reports that he is chronically mildly constipated. He had mild nausea, but this is now resolved. He now states that his abdominal pain is nearly resolved. The pt also reports that he has been feeling progressively more SOB for quite some time. He is unable to lay back to sleep, and has been sleeping nearly upright in his recliner. He is only able to ambulate very short distances. The pt overall is feeling like he has declined significantly recently, and he just wants to . Patient History Medical History Anemia (2009) CHF (congestive heart failure) CKD (chronic kidney disease) stage 4, GFR 15-29 ml/min Diabetes mellitus (1997) Diabetic nephropathy Edema Foot pain (2002) Gastric ulcer (1966) Hearing loss (1935) History of chronic skin ulcer History of malignant neoplasm of prostate History of urethral stricture Hypertension Infectious disease (2011) Kidney failure Lumbar spine pain Osteomyelitis (2011) Peripheral neuropathy (2002) Prostate cancer (1998) Urethral stricture 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 Urinary incontinence Urinary incontinence, mixed Surgical History Anesthesia complication History of cataract removal with insertion of prosthetic lens (2012) History of lumbar discectomy History of lumbar laminectomy History of prostate surgery (1998) History of surgery (1952) History of tonsillectomy and adenoidectomy (1948) Hx of cystoscopy (10/17/19) Family & Social History Family History Father Cancer Mother Heart disease Hypertension Sister Diabetes mellitus Social History: household members spouse Prior Living Arrangements House Safety & Behavioral: Feels Safe in Current Yes Environment Been Physically Hurt or No Threatened By a Person Tobacco & Substance use: Smoking Status Former smoker alcohol intake current alcohol intake frequency a few times a week Substance Use Type does not use Meds Home Medications and Allergies Home Medications Medication Instructions Recorded Confirmed Type aspirin 81 mg tablet,delayed 81 mg PO QDAY #30 tab 08/31/16 12/27/20 Rx release cholecalciferol (vitamin D3) 50 2,000 unit PO QDAY #30 cap 08/31/16 12/27/20 Rx mcg (2,000 unit) capsule (Vitamin D3) pyridoxine (vitamin B6) 100 mg 100 mg PO QDAY #30 tab 08/31/16 12/27/20 Rx tablet Lancets ea SEE INSTRUCTIONS #100 12/16/16 12/27/20 Rx inhalational spacing device (E-Z #1 each 10/18/18 12/27/20 Rx Spacer) spirometers and accessories #1 each 10/18/18 12/27/20 Rx albuterol sulfate 90 mcg/actuation 2 puff INHALATION Q4-6H PRN gram 03/21/19 12/27/20 History aerosol inhaler tiotropium bromide 2.5 2 puff INHALATION PRN PRN 03/21/19 12/27/20 History mcg/actuation mist for inhalation (Spiriva Respimat) famotidine 20 mg tablet (Pepcid) 20 mg PO PRN PRN 04/24/19 12/27/20 History Syringes #100 each 06/16/19 12/27/20 Rx BD insulin pen needle UF short #100 each 07/06/19 12/27/20 Rx felodipine 2.5 mg tablet,extended 2.5 mg PO DAILY 10/27/19 12/27/20 History release 24 hr insulin syr/ndl U100 half essie 0.5 #100 each 05/06/20 12/27/20 Rx mL 31 gauge x 07/28 amlodipine 2.5 mg tablet 2.5 mg PO DAILY 09/06/20 12/27/20 History doxycycline monohydrate 100 mg 100 mg PO BID 09/06/20 12/27/20 History capsule Disabled Parking Permit #1 ea 09/20/20 12/27/20 Rx Diabetic Footwear and Insoles #1 ea 10/07/20 12/27/20 Rx insulin lispro 100 unit/mL 10 unit (0.1 mL) SUBCUT DAILY #15 11/20/20 12/27/20 Rx subcutaneous pen (Humalog KwikPen ml (U-100) Insulin) rivaroxaban 15 mg tablet 15 mg PO DAILY #30 tab 12/30/20 12/30/20 Rx insulin NPH isoph U-100 human 100 10 - 20 unit (0.1 - 0.2 mL) SUBCUT 01/14/21 Rx unit/mL subcutaneous suspension DAILY #10 ml (Humulin N NPH U-100 Insulin (isophane susp)) clobetasol 0.05 % topical ointment 1 applic TOPICAL BID #60 g 03/06/21 Rx ferrous sulfate 324 mg (65 mg 324 mg PO DAILY #30 tab 03/17/21 Rx iron) tablet,delayed release One Touch Verio Glucose Test Strips #180 each 04/28/21 Rx torsemide 20 mg tablet See Rx Instructions .ROUTE 07/03/21 Rx .COMPLEX #60 tab Allergies Allergy/AdvReac Type Severity Reaction Status Date / Time metolazone [METOLAZONE] Allergy Severe VERY DIZZY Verified 12/27/20 10:44 morphine [MORPHINE] Allergy Unknown large Verified 12/27/20 10:44 welts, itching Penicillins [PENICILLINS] Allergy Unknown red face Verified 12/27/20 10:44 NSAIDS (Non-Steroidal AdvReac Severe RENAL Verified 12/27/20 10:44 Anti-Inflamma INSUFF [NSAIDS (NON-STEROIDAL ANTI-INFLAMMA] Exam Vital Signs (past 8 hours): - 07/09/21 11:45 07/09/21 11:49 07/09/21 11:50 Temperature 97.0 F L Pulse Rate 88 62 Respiratory Rate 16 16 Blood Pressure 142/64 H 142/64 H Pulse Oximetry 99 97 97 07/09/21 12:00 07/09/21 12:30 07/09/21 13:00 Temperature Pulse Rate 61 62 60 Respiratory Rate 16 12 12 Blood Pressure 123/60 120/58 L Pulse Oximetry 99 96 98 07/09/21 13:01 07/09/21 13:30 07/09/21 13:45 Temperature Pulse Rate 60 60 62 Respiratory Rate 13 15 15 Blood Pressure 127/60 149/64 H Pulse Oximetry 98 98 90 L 07/09/21 14:00 07/09/21 14:30 07/09/21 14:31 Temperature Pulse Rate 62 67 67 Respiratory Rate 13 19 Blood Pressure 104/54 L 132/63 Pulse Oximetry 97 98 98 07/09/21 15:00 07/09/21 15:01 07/09/21 15:30 Temperature Pulse Rate 52 L 46 L 48 L Respiratory Rate 13 12 15 Blood Pressure 138/64 Pulse Oximetry 98 98 98 07/09/21 15:31 07/09/21 16:00 07/09/21 16:01 Temperature Pulse Rate 50 L 37 L 49 L Respiratory Rate 14 17 14 Blood Pressure 132/60 118/56 L Pulse Oximetry 98 97 98 07/09/21 16:30 07/09/21 16:31 Temperature Pulse Rate 55 L 62 Respiratory Rate 15 21 Blood Pressure 144/65 H Pulse Oximetry Oxygen Delivery Method Room Air Narrative Exam Narrative: Gen: NAD, laying comfortably in bed with head of bead raised, dozing off frequently during encounter HEENT: normocephalic, atraumatic, sclera clear Neck: no JVD CV: RRR, grade 3/6 systolic murmur Resp: coarse breath sounds with faint crackles bilateral bases Abd: soft, nontended, nondistended, normoactive bowel sounds Ext: 4+ pitting edema bilateral LE, dressing covering chronic ulceration without surrounding erythema, significant chronic venous stasis changes and resultant skin changes Objective Labs Result Diagrams: 07/09/21 19:55 07/09/21 11:56 Labs: Laboratory Results - last 24 hr 07/09/21 07/09/21 07/09/21 11:56 11:56 11:56 WBC 5.9 RBC 2.46 L Hgb 8.0 L Hct 24.5 L MCV 99.5 MCH 32.7 MCHC 32.9 RDW 16.4 H Plt Count 100 L Neut % (Auto) 83.3 H Lymph % (Auto) 9.4 L [place] % (Auto) 6.6 Eos % (Auto) 0.4 L Baso % (Auto) 0.3 Neut # (Auto) 4900 Lymph # (Auto) 600 L [place] # (Auto) 400 Eos # (Auto) 0 Baso # (Auto) 0 Sodium 144 Potassium 4.4 Chloride 102 Carbon Dioxide 32 BUN 126 H* Creatinine 3.40 H Estimated GFR 17 L BUN/Creatinine Ratio 37.1 H Glucose 217 H Calcium 9.6 Total Bilirubin 0.4 AST 32 ALT 33 Alkaline Phosphatase 79 Total Creatine Kinase 26 L CK-MB (CK-2) TNP CK-MB (CK-2) Rel Index TNP Troponin I 0.019 Total Protein 6.2 L Albumin 3.4 L Globulin 2.8 Albumin/Globulin Ratio 1.2 Lipase 234 Urine Color Urine Appearance Urine pH Ur Specific [place] Urine Protein Urine Glucose (UA) Urine Ketones Urine Occult Blood Urine Nitrate Urine Bilirubin Urine Urobilinogen Ur Leukocyte Esterase Urine RBC Urine WBC Ur Squamous Epith Cells Urine Bacteria Ur Culture Indicated? 07/09/21 14:30 WBC RBC Hgb Hct MCV MCH MCHC RDW Plt Count Neut % (Auto) Lymph % (Auto) [place] % (Auto) Eos % (Auto) Baso % (Auto) Neut # (Auto) Lymph # (Auto) [place] # (Auto) Eos # (Auto) Baso # (Auto) Sodium Potassium Chloride Carbon Dioxide BUN Creatinine Estimated GFR BUN/Creatinine Ratio Glucose Calcium Total Bilirubin AST ALT Alkaline Phosphatase Total Creatine Kinase CK-MB (CK-2) CK-MB (CK-2) Rel Index Troponin I Total Protein Albumin Globulin Albumin/Globulin Ratio Lipase Urine Color Yellow Urine Appearance Clear Urine pH 5.0 Ur Specific [place] <=1.005 Urine Protein Trace H Urine Glucose (UA) Negative Urine Ketones Negative Urine Occult Blood Negative Urine Nitrate Negative Urine Bilirubin Negative Urine Urobilinogen 0.2 Ur Leukocyte Esterase Negative Urine RBC 0-1/hpf Urine WBC None seen Ur Squamous Epith Cells 0-1 /hpf Urine Bacteria None seen Ur Culture Indicated? Cult not indicated Assessment & Plan Assessment & Plan narrative: Pt is an 86yo man with CKD, bradycardia, CAD, depression, HTN, GERD, chronic osteomyelitis, DM Type 2, and hx of prostate cancer who presented with weakness and abdominal pain. Abdominal pain now nearly resolved. 1) Global weakness: Likely multifactorial. Most likely due to chronic deconditioning and continued progression of chronic medical conditions, with potentially anemia contributing as well. - PT/OT consulted 2) Acute on chronic anemia: Contacted by nursing after the pt was seen due to significant melena with BM. The pt denied having this prior to admission. CT abdomen did have thickening of the duodenum, suggestive of possible ulceration. Pt with Xarelto on listed home medication list, however, Cardiology discontinued this February 2021. Question if uremia contributing as well. - Pantoprazole 60mg IV BID - Repeat STAT CBC - Type and screen - Dependent on results of above, will need to discuss desire for possible endoscopy with the pt and consult surgery - Continue home iron supplement 3) Abdominal pain: Possibly due to ulceration, although uncertain why sudden flare. Resolving prior to intervention. - Continue to monitor 4) Shortness of breath: Possibly due to worsening anemia. Echo done in January with mild aortic stenosis but normal EF. Pt does note significant worsening of orthopnea since then. CXR without significant pulmonary edema. Due to significant immotility at home, is concerning for possible PE as well. - V/Q scan tomorrow (cannot obtain CT PE due to GFR) - Will monitor as anemia hopefully stabilizing/improving - If no improvement, plan to repeat Echo - Continue home Torsemide 5) Hypertension, CAD: Stable - Continue home antihypertensives 6) CKD: Pt with worsening of kidney function with uremia. Electrolytes in acceptable range. - Repeat BMP in the morning - If worsening function, will need to discuss if pt would be interested in dialysis. Pt unlikely to be a strong candidate for this. 7) Bradycardia: Stable. Pt has declined pacemaker in the past. 8) Chronic venous stasis insufficiency with chronic osteomyelitis: Stable appearance 9) DM Type 2: - Continue home Lispro and sliding scale coverage - ACHS blood sugars Code: DNR, confirmed with pt and son this evening Diet: Diabetic diet, may need to be NPO dependent on need for endoscopy DVT ppx: Hold for now due to potential bleeding Dispo: Discussed with pt and his son today goals of care. They hope to transition to assisted living for the remainder of the pts life. The pts son is actively touring facilities. Discussed the potential need for alternative option until this is able to be set-up, at discharge. They are interested in 24hr caregivers at home potentially. The pt and his son are also interested in hospice care. Will discuss this with care management tomorrow. Time Spent With Patient Time with patient: 50 to 69 minutes with 50% spent counseling/coordinating care
--- NOTE | 2021-07-09 16:47 | PC.NURSE ---
pt ate 1/2 yogurt, chocolate milk, cranberry juice and water without difficulty.
--- NOTE | 2021-07-09 17:31 | DI.RAD.S_ITS ---
PROCEDURE: XR CHEST 1V INDICATIONS: SOB TECHNIQUE: One view of the chest was acquired. COMPARISON: [facility], CR, XR CHEST 1V, 09/06/2020, 15:14. FINDINGS: Surgical changes and devices: None. Lungs and pleura: Lungs are clear. No pleural effusions or pneumothorax. Submaximal inspiration. Patchy bibasilar atelectasis. Mediastinum: Mediastinal contours appear normal. Heart size is normal. Bones and chest wall: No suspicious bony lesions. Overlying soft tissues appear unremarkable. IMPRESSION: Patchy bibasilar atelectasis. Dictated by: Alexys Eaton M.D. on 07/09/2021 at 18:52 Approved by: Alexys Eaton M.D. on 07/09/2021 at 18:52
--- NOTE | 2021-07-09 18:10 | PC.NURSE ---
assisted with incontinence care. pt noted to have large amount of blood in stool. guiac positive. Dr Sewell made aware.
--- NOTE | 2021-07-09 18:44 | PC.NURSE ---
Pt being transported to room 202. Rec'd call back from Dr Lewis and advised large amount of bloody stool in brief. Verbal order for repeat CBC, type and screen, and 60mg PO protonix BID. Advised she would like to be called with results and message relayed to YENI Anderson who will be resuming care.
[2021-07-09 20:15] LABS: Add Manual Diff / Slide Review NO; Basophils Absolute Auto 0 /uL (0-100); Basophils Percent Auto 0.2 % (0-2); Eosinophils Absolute Auto 0 /uL (0-450); Eosinophils Percent Auto 0.3 % (2-4); Hematocrit 21.8 % (41-53); Lymphocytes Absolute Auto 600 /uL (1100-4500); Lymphocytes Percent Auto 11.5 % (25-40); Mean Corpuscular HGB Conc 32.1 % (30-36); Mean Corpuscular Hemoglobin 32.1 PG (26-34); Monocytes Absolute Auto 500 /uL (0-900); Monocytes Percent Auto 9.4 % (3-14); Neutrophils Absolute Auto 4400 /uL (1500-7000); Neutrophils Percent Auto 78.6 % (50-75); Platelet Count 87 X10^3/uL (150-400); Red Blood Cell Count 2.18 X10^6/uL (4.5-5.9); Red Cell Distribution Width 16.3 % (11.6-14.8); White Blood Cell Count 5.6 X10^3/uL (4.5-11.0)
[2021-07-09 21:27] LABS: COVID19 -Nasal RAPID Negative (Negative)
[2021-07-09] MEDS: INSULIN LISPRO 100 UNIT/ML 3ML VIAL SUBCUT (21:28)
[2021-07-09] MEDS: PANTOPRAZOLE DR 20 MG TABLET 60 MG PO (21:28)
[2021-07-10] VITALS (17 sets, daily range): BP systolic 102–162; BP diastolic 38–70; PULSE 44–58; RESP 12–19; TEMP 35.3–36.4; O2SAT 98–100; BMI 32.3
--- NOTE | 2021-07-10 | PATH_ITS ---
[facility] Accession Number: [id number] . 01 Material submitted: . PART A: duodenum - RANDOM DUODENUM BIOPSY PART B: gastrointestinal site - ANTRUM BIOPSY . 02 Diagnosis: A. Random Duodenum Biopsy: Mild active duodenitis, nonspecific. Negative for granulomas, regions of dysplasia, or malignancy. . B. Antrum, Biopsy: Body-type mucosa with patchy reactive gastropathy and mild chronic inflammation. Negative for Helicobacter organisms by immunohistochemistry. Negative for intestinal metaplasia. Negative for dysplasia or malignancy. [facility] 07/16/2021 1353 Local . 02 Electronically signed: . Jamila Chamberlain MD, Pathologist NPI- [id number] . 01 Gross description: . Part A: RANDOM DUODENUM BIOPSY: Received in formalin are multiple fragment(s) of [place], soft tissue measuring 0.1 x 0.1 x 0.1 cm to 0.3 x 0.3 x 0.2 cm submitted entirely in 1 cassette(s) Part B: ANTRUM BIOPSY: Received in formalin is 1 fragment(s) of [place], soft tissue measuring 0.4 x 0.2 x 0.2 cm submitted entirely in 1 cassette(s) /MALLORY 07/12/2021 0004 Local . 02 Microscopic: . B. An immunohistochemical stain is performed to evaluate for Helicobacter organisms and is negative. The control stain shows appropriate reactivity. . * This test was developed and its performance characteristics determined by [employer]. It has not been cleared or approved by the U.[place]. Food and Drug Administration. The FDA has determined that such clearance or approval is not necessary. This test is used for clinical purposes. It should not be regarded as investigational or for research. . 02 Pathologist provided ICD-10: K29.70 . 02 CPT . 116443, [id number], [id number] Performed at: 01 [facility] [address] [place] [address], [place], [place] [id number] MD Todd Deleon MD Phone: [phone] Performed at: 02 [facility] [place] [address] [place], [place] [id number] MD Мария Dooley MD Phone: [phone]
[2021-07-10] MEDS: HYDROMORPHONE 1 MG INJ IV ×2 (02:57→07:58)
[2021-07-10] MEDS: FUROSEMIDE 20 MG/2 ML VIAL IV (02:58)
[2021-07-10] MEDS: PANTOPRAZOLE 40 MG VIAL IV ×2 (06:52→18:48)
[2021-07-10] MEDS: IPRATROPIUM 0.5 MG/2.5 ML NEB INH (07:08)
[2021-07-10] MEDS: INSULIN LISPRO 100 UNIT/ML 3ML VIAL SUBCUT ×2 (08:07→17:17)
[2021-07-10 08:22] LABS: Add Manual Diff / Slide Review NO; Basophils Absolute Auto 0 /uL (0-100); Basophils Percent Auto 0.2 % (0-2); Eosinophils Absolute Auto 100 /uL (0-450); Eosinophils Percent Auto 1.5 % (2-4); Hematocrit 27.2 % (41-53); Lymphocytes Absolute Auto 700 /uL (1100-4500); Lymphocytes Percent Auto 13.6 % (25-40); Mean Corpuscular Hemoglobin 30.8 PG (26-34); Mean Corpuscular Volume 93.6 fL (80-100); Monocytes Absolute Auto 600 /uL (0-900); Monocytes Percent Auto 12.5 % (3-14); Neutrophils Absolute Auto 3600 /uL (1500-7000); Neutrophils Percent Auto 72.2 % (50-75); Platelet Count 81 X10^3/uL (150-400); Red Blood Cell Count 2.91 X10^6/uL (4.5-5.9)
[2021-07-10 08:30] LABS: Alanine Aminotransferase 33 IU/L (<50); Albumin 2.8 g/dL (3.5-5.0); Albumin Globulin Ratio 1.1 (1.0-2.8); Alkaline Phosphatase 65 U/L (38-126); Aspartate Aminotransferase 35 IU/L (17-59); Bilirubin Total 0.5 mg/dL (0.2-1.3); Calcium 9.4 mg/dL (8.4-10.2); Carbon Dioxide 25 mmol/L (22-32); Chloride 110 mmol/L (98-107); Estimated Glomerular Filt Rate 17 mL/min (>60); Globulin 2.6 g/dL (1.7-4.1); Glucose 163 mg/dL (80-110); HEMOLYSIS < 15 (0-50); Potassium 4.8 mmol/L (3.4-5.1); Sodium 143 mmol/L (137-145); Total Protein 5.4 g/dL (6.3-8.2)
[2021-07-10 08:40] LABS: BUN Creatinine Ratio 40.2 (6-22)
[2021-07-10 08:42] LABS: Blood Urea Nitrogen 136 mg/dL (9-20)
--- NOTE | 2021-07-10 08:44 | P.CONS_ITS ---
History of Present Illness Consult details Date Patient Seen: 07/10/21 Time Patient Seen: 08:44 Chief complaint: weakness Narrative: Donato is an 86-year-old man with multiple medical problems who presented last night with weakness and abdominal pain and had a melanotic stool after arrival to the ER. CT showed possible thickening in the duodenum. He was noted to be anemic with hemoglobin of 7 and blood transfusion was ordered. This morning his hemoglobin is up to a 9. Meds Home Medications and Allergies Home Medications Medication Instructions Recorded Confirmed Type aspirin 81 mg tablet,delayed 81 mg PO QDAY #30 tab 08/31/16 12/27/20 Rx release cholecalciferol (vitamin D3) 50 2,000 unit PO QDAY #30 cap 08/31/16 12/27/20 Rx mcg (2,000 unit) capsule (Vitamin D3) pyridoxine (vitamin B6) 100 mg 100 mg PO QDAY #30 tab 08/31/16 12/27/20 Rx tablet Lancets ea SEE INSTRUCTIONS #100 12/16/16 12/27/20 Rx inhalational spacing device (E-Z #1 each 10/18/18 12/27/20 Rx Spacer) spirometers and accessories #1 each 10/18/18 12/27/20 Rx albuterol sulfate 90 mcg/actuation 2 puff INHALATION Q4-6H PRN gram 03/21/19 12/27/20 History aerosol inhaler tiotropium bromide 2.5 2 puff INHALATION PRN PRN 03/21/19 12/27/20 History mcg/actuation mist for inhalation (Spiriva Respimat) famotidine 20 mg tablet (Pepcid) 20 mg PO PRN PRN 04/24/19 12/27/20 History Syringes #100 each 06/16/19 12/27/20 Rx BD insulin pen needle UF short #100 each 07/06/19 12/27/20 Rx felodipine 2.5 mg tablet,extended 2.5 mg PO DAILY 10/27/19 12/27/20 History release 24 hr insulin syr/ndl U100 half essie 0.5 #100 each 05/06/20 12/27/20 Rx mL 31 gauge x 5/16 amlodipine 2.5 mg tablet 2.5 mg PO DAILY 09/06/20 12/27/20 History doxycycline monohydrate 100 mg 100 mg PO BID 09/06/20 12/27/20 History capsule Disabled Parking Permit #1 ea 09/20/20 12/27/20 Rx Diabetic Footwear and Insoles #1 ea 10/07/20 12/27/20 Rx insulin lispro 100 unit/mL 10 unit (0.1 mL) SUBCUT DAILY #15 11/20/20 12/27/20 Rx subcutaneous pen (Humalog KwikPen ml (U-100) Insulin) rivaroxaban 15 mg tablet 15 mg PO DAILY #30 tab 12/30/20 12/30/20 Rx insulin NPH isoph U-100 human 100 10 - 20 unit (0.1 - 0.2 mL) SUBCUT 01/14/21 Rx unit/mL subcutaneous suspension DAILY #10 ml (Humulin N NPH U-100 Insulin (isophane susp)) clobetasol 0.05 % topical ointment 1 applic TOPICAL BID #60 g 03/06/21 Rx ferrous sulfate 324 mg (65 mg 324 mg PO DAILY #30 tab 03/17/21 Rx iron) tablet,delayed release One Touch Verio Glucose Test Strips #180 each 04/28/21 Rx torsemide 20 mg tablet See Rx Instructions .ROUTE 07/03/21 Rx .COMPLEX #60 tab Allergies Allergy/AdvReac Type Severity Reaction Status Date / Time metolazone [METOLAZONE] Allergy Severe VERY DIZZY Verified 12/27/20 10:44 morphine [MORPHINE] Allergy Unknown large Verified 12/27/20 10:44 welts, itching Penicillins [PENICILLINS] Allergy Unknown red face Verified 12/27/20 10:44 NSAIDS (Non-Steroidal AdvReac Severe RENAL Verified 12/27/20 10:44 Anti-Inflamma INSUFF [NSAIDS (NON-STEROIDAL ANTI-INFLAMMA] Exam Vital Signs (past 8 hours): - 07/10/21 02:39 07/10/21 04:43 07/10/21 05:01 Temperature 96.7 F L 97.1 F L 97.2 F L Pulse Rate 58 L 55 L 58 L Respiratory Rate 18 19 18 Blood Pressure 137/64 134/51 L 114/40 L Pulse Oximetry 07/10/21 07:06 07/10/21 07:23 Temperature 96.8 F L Pulse Rate 51 L 52 L Respiratory Rate 16 16 Blood Pressure 130/53 L Pulse Oximetry 99 Oxygen Delivery Method Nasal Cannula Oxygen Flow Rate 1 Const General: ill appearing Resp Effort & Inspection: normal respiratory effort GI Palpation: soft Other: No peritoneal findings Extrem Other: Bilateral lower extremities demonstrate is scaly erythema and substantial edema Objective Labs Result Diagrams: 07/10/21 08:07 07/10/21 08:07 Labs: Laboratory Results - last 24 hr 07/09/21 07/09/21 07/09/21 11:56 11:56 11:56 WBC 5.9 RBC 2.46 L Hgb 8.0 L Hct 24.5 L MCV 99.5 MCH 32.7 MCHC 32.9 RDW 16.4 H Plt Count 100 L Neut % (Auto) 83.3 H Lymph % (Auto) 9.4 L [place] % (Auto) 6.6 Eos % (Auto) 0.4 L Baso % (Auto) 0.3 Neut # (Auto) 4900 Lymph # (Auto) 600 L [place] # (Auto) 400 Eos # (Auto) 0 Baso # (Auto) 0 Sodium 144 Potassium 4.4 Chloride 102 Carbon Dioxide 32 BUN 126 H* Creatinine 3.40 H Estimated GFR 17 L BUN/Creatinine Ratio 37.1 H Glucose 217 H Calcium 9.6 Total Bilirubin 0.4 AST 32 ALT 33 Alkaline Phosphatase 79 Total Creatine Kinase 26 L CK-MB (CK-2) TNP CK-MB (CK-2) Rel Index TNP Troponin I 0.019 Total Protein 6.2 L Albumin 3.4 L Globulin 2.8 Albumin/Globulin Ratio 1.2 Lipase 234 Urine Color Urine Appearance Urine pH Ur Specific [place] Urine Protein Urine Glucose (UA) Urine Ketones Urine Occult Blood Urine Nitrate Urine Bilirubin Urine Urobilinogen Ur Leukocyte Esterase Urine RBC Urine WBC Ur Squamous Epith Cells Urine Bacteria Ur Culture Indicated? SARS-CoV-2 (PCR) Blood Type Antibody Screen Crossmatch 07/09/21 07/09/21 07/09/21 14:30 19:55 19:55 WBC 5.6 RBC 2.18 L Hgb 7.0 L Hct 21.8 L MCV 100.0 MCH 32.1 MCHC 32.1 RDW 16.3 H Plt Count 87 L Neut % (Auto) 78.6 H Lymph % (Auto) 11.5 L [place] % (Auto) 9.4 Eos % (Auto) 0.3 L Baso % (Auto) 0.2 Neut # (Auto) 4400 Lymph # (Auto) 600 L [place] # (Auto) 500 Eos # (Auto) 0 Baso # (Auto) 0 Sodium Potassium Chloride Carbon Dioxide BUN Creatinine Estimated GFR BUN/Creatinine Ratio Glucose Calcium Total Bilirubin AST ALT Alkaline Phosphatase Total Creatine Kinase CK-MB (CK-2) CK-MB (CK-2) Rel Index Troponin I Total Protein Albumin Globulin Albumin/Globulin Ratio Lipase Urine Color Yellow Urine Appearance Clear Urine pH 5.0 Ur Specific [place] <=1.005 Urine Protein Trace H Urine Glucose (UA) Negative Urine Ketones Negative Urine Occult Blood Negative Urine Nitrate Negative Urine Bilirubin Negative Urine Urobilinogen 0.2 Ur Leukocyte Esterase Negative Urine RBC 0-1/hpf Urine WBC None seen Ur Squamous Epith Cells 0-1 /hpf Urine Bacteria None seen Ur Culture Indicated? Cult not indicated SARS-CoV-2 (PCR) Blood Type A Positive Antibody Screen Negative Crossmatch See Detail 07/09/21 07/10/21 07/10/21 20:45 08:07 08:07 WBC 5.0 RBC 2.91 L Hgb 9.0 L Hct 27.2 L MCV 93.6 D MCH 30.8 MCHC 33.0 RDW 20.0 H Plt Count 81 L Neut % (Auto) 72.2 Lymph % (Auto) 13.6 L [place] % (Auto) 12.5 Eos % (Auto) 1.5 L Baso % (Auto) 0.2 Neut # (Auto) 3600 Lymph # (Auto) 700 L [place] # (Auto) 600 Eos # (Auto) 100 Baso # (Auto) 0 Sodium 143 Potassium 4.8 Chloride 110 H Carbon Dioxide 25 BUN 136 H* Creatinine 3.38 H Estimated GFR 17 L BUN/Creatinine Ratio 40.2 H Glucose 163 H Calcium 9.4 Total Bilirubin 0.5 AST 35 ALT 33 Alkaline Phosphatase 65 Total Creatine Kinase CK-MB (CK-2) CK-MB (CK-2) Rel Index Troponin I Total Protein 5.4 L Albumin 2.8 L Globulin 2.6 Albumin/Globulin Ratio 1.1 Lipase Urine Color Urine Appearance Urine pH Ur Specific [place] Urine Protein Urine Glucose (UA) Urine Ketones Urine Occult Blood Urine Nitrate Urine Bilirubin Urine Urobilinogen Ur Leukocyte Esterase Urine RBC Urine WBC Ur Squamous Epith Cells Urine Bacteria Ur Culture Indicated? SARS-CoV-2 (PCR) Negative Blood Type Antibody Screen Crossmatch [facility] Medical History Anemia (2009) CHF (congestive heart failure) CKD (chronic kidney disease) stage 4, GFR 15-29 ml/min Diabetes mellitus (1997) Diabetic nephropathy Edema Foot pain (2002) Gastric ulcer (1966) Hearing loss (1935) History of chronic skin ulcer History of malignant neoplasm of prostate History of urethral stricture Hypertension Infectious disease (2011) Kidney failure Lumbar spine pain Osteomyelitis (2011) Peripheral neuropathy (2002) Prostate cancer (1998) Urethral stricture 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 Urinary incontinence Urinary incontinence, mixed Surgical History Anesthesia complication History of cataract removal with insertion of prosthetic lens (2012) History of lumbar discectomy History of lumbar laminectomy History of prostate surgery (1998) History of surgery (1951) History of tonsillectomy and adenoidectomy (1947) Hx of cystoscopy (10/17/19) Family History Father Cancer Mother Heart disease Hypertension Sister Diabetes mellitus Social History household members: spouse Tobacco & Substance Use Smoking Status: Former smoker Tobacco: How many years used: 30 alcohol intake: current Assessment & Plan Assessment and plan (1) Melena: Status: Acute Plan 86-year-old man with melena with concern for possible bleeding duodenal ulcer. Discussed risks and benefits of esophageal gastroduodenoscopy. We will plan to proceed later today with anesthesia. Time Spent With Patient Critical Care time: I spent a total of [] minutes of critical care time on this patient's care tod ay; this time is exclusive of procedural time.
--- NOTE | 2021-07-10 09:13 | PC.NURSE ---
day - Pt left unit at 0949
--- NOTE | 2021-07-10 10:41 | P.PN_ITS ---
Subjective Subjective Date Patient Seen: 07/10/21 Time Patient Seen: 10:25 Interval history: The pt reports overall feeling tired this morning. He had significant leg pain last night due to them not being wrapped as they usually are. This improved with narcotic pain medication. He was able to lay more flat last night when sleeping, without SOB. He does report mild RUQ abdominal pain this morning. No nausea or vomiting. Exam Vital Signs (past 8 hours): - 07/10/21 04:43 07/10/21 05:01 07/10/21 07:06 Temperature 97.1 F L 97.2 F L Pulse Rate 55 L 58 L 51 L Respiratory Rate 19 18 16 Blood Pressure 134/51 L 114/40 L Pulse Oximetry 99 07/10/21 07:23 Temperature 96.8 F L Pulse Rate 52 L Respiratory Rate 16 Blood Pressure 130/53 L Pulse Oximetry Oxygen Delivery Method Nasal Cannula Oxygen Flow Rate 1 Narrative Exam Narrative: Gen: NAD, laying comfortably in bed, resting CV: RRR, grade 3/6 systolic murmur Resp: clear to auscultation bilaterally Abd: soft, nondistended, mild RUQ tenderness without rebound/guarding/rigidity, normoactive bowel sounds Ext: unchanged from yesterday Objective Labs Result Diagrams: 07/10/21 08:07 07/10/21 08:07 Labs: Laboratory Results - last 24 hr 07/09/21 07/09/21 07/09/21 11:56 11:56 11:56 WBC 5.9 RBC 2.46 L Hgb 8.0 L Hct 24.5 L MCV 99.5 MCH 32.7 MCHC 32.9 RDW 16.4 H Plt Count 100 L Neut % (Auto) 83.3 H Lymph % (Auto) 9.4 L [place] % (Auto) 6.6 Eos % (Auto) 0.4 L Baso % (Auto) 0.3 Neut # (Auto) 4900 Lymph # (Auto) 600 L [place] # (Auto) 400 Eos # (Auto) 0 Baso # (Auto) 0 Sodium 144 Potassium 4.4 Chloride 102 Carbon Dioxide 32 BUN 126 H* Creatinine 3.40 H Estimated GFR 17 L BUN/Creatinine Ratio 37.1 H Glucose 217 H Calcium 9.6 Total Bilirubin 0.4 AST 32 ALT 33 Alkaline Phosphatase 79 Total Creatine Kinase 26 L CK-MB (CK-2) TNP CK-MB (CK-2) Rel Index TNP Troponin I 0.019 Total Protein 6.2 L Albumin 3.4 L Globulin 2.8 Albumin/Globulin Ratio 1.2 Lipase 234 Urine Color Urine Appearance Urine pH Ur Specific [place] Urine Protein Urine Glucose (UA) Urine Ketones Urine Occult Blood Urine Nitrate Urine Bilirubin Urine Urobilinogen Ur Leukocyte Esterase Urine RBC Urine WBC Ur Squamous Epith Cells Urine Bacteria Ur Culture Indicated? SARS-CoV-2 (PCR) Blood Type Antibody Screen Crossmatch 07/09/21 07/09/21 07/09/21 14:30 19:55 19:55 WBC 5.6 RBC 2.18 L Hgb 7.0 L Hct 21.8 L MCV 100.0 MCH 32.1 MCHC 32.1 RDW 16.3 H Plt Count 87 L Neut % (Auto) 78.6 H Lymph % (Auto) 11.5 L [place] % (Auto) 9.4 Eos % (Auto) 0.3 L Baso % (Auto) 0.2 Neut # (Auto) 4400 Lymph # (Auto) 600 L [place] # (Auto) 500 Eos # (Auto) 0 Baso # (Auto) 0 Sodium Potassium Chloride Carbon Dioxide BUN Creatinine Estimated GFR BUN/Creatinine Ratio Glucose Calcium Total Bilirubin AST ALT Alkaline Phosphatase Total Creatine Kinase CK-MB (CK-2) CK-MB (CK-2) Rel Index Troponin I Total Protein Albumin Globulin Albumin/Globulin Ratio Lipase Urine Color Yellow Urine Appearance Clear Urine pH 5.0 Ur Specific [place] <=1.005 Urine Protein Trace H Urine Glucose (UA) Negative Urine Ketones Negative Urine Occult Blood Negative Urine Nitrate Negative Urine Bilirubin Negative Urine Urobilinogen 0.2 Ur Leukocyte Esterase Negative Urine RBC 0-1/hpf Urine WBC None seen Ur Squamous Epith Cells 0-1 /hpf Urine Bacteria None seen Ur Culture Indicated? Cult not indicated SARS-CoV-2 (PCR) Blood Type A Positive Antibody Screen Negative Crossmatch See Detail 07/09/21 07/10/21 07/10/21 20:45 08:07 08:07 WBC 5.0 RBC 2.91 L Hgb 9.0 L Hct 27.2 L MCV 93.6 D MCH 30.8 MCHC 33.0 RDW 20.0 H Plt Count 81 L Neut % (Auto) 72.2 Lymph % (Auto) 13.6 L [place] % (Auto) 12.5 Eos % (Auto) 1.5 L Baso % (Auto) 0.2 Neut # (Auto) 3600 Lymph # (Auto) 700 L [place] # (Auto) 600 Eos # (Auto) 100 Baso # (Auto) 0 Sodium 143 Potassium 4.8 Chloride 110 H Carbon Dioxide 25 BUN 136 H* Creatinine 3.38 H Estimated GFR 17 L BUN/Creatinine Ratio 40.2 H Glucose 163 H Calcium 9.4 Total Bilirubin 0.5 AST 35 ALT 33 Alkaline Phosphatase 65 Total Creatine Kinase CK-MB (CK-2) CK-MB (CK-2) Rel Index Troponin I Total Protein 5.4 L Albumin 2.8 L Globulin 2.6 Albumin/Globulin Ratio 1.1 Lipase Urine Color Urine Appearance Urine pH Ur Specific [place] Urine Protein Urine Glucose (UA) Urine Ketones Urine Occult Blood Urine Nitrate Urine Bilirubin Urine Urobilinogen Ur Leukocyte Esterase Urine RBC Urine WBC Ur Squamous Epith Cells Urine Bacteria Ur Culture Indicated? SARS-CoV-2 (PCR) Negative Blood Type Antibody Screen Crossmatch [facility] Medical History Anemia (2009) CHF (congestive heart failure) CKD (chronic kidney disease) stage 4, GFR 15-29 ml/min Diabetes mellitus (1997) Diabetic nephropathy Edema Foot pain (2002) Gastric ulcer (1966) Hearing loss (1935) History of chronic skin ulcer History of malignant neoplasm of prostate History of urethral stricture Hypertension Infectious disease (2011) Kidney failure Lumbar spine pain Osteomyelitis (2011) Peripheral neuropathy (2002) Prostate cancer (1998) Urethral stricture 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 Urinary incontinence Urinary incontinence, mixed Surgical History Anesthesia complication History of cataract removal with insertion of prosthetic lens (2012) History of lumbar discectomy History of lumbar laminectomy History of prostate surgery (1998) History of surgery (1951) History of tonsillectomy and adenoidectomy (1947) Hx of cystoscopy (10/17/19) Family History Father Cancer Mother Heart disease Hypertension Sister Diabetes mellitus Social History household members: spouse Smoking Status: Former smoker Tobacco: How many years used: 30 alcohol intake: current Assessment & Plan Assessment & Plan narrative: Pt is an 86yo man with CKD, bradycardia, CAD, depression, HTN, GERD, chronic osteomyelitis, DM Type 2, and hx of prostate cancer who presented with weakness and abdominal pain. 1)? Global weakness:? Likely multifactorial.? Most likely due to chronic decond itioning and continued progression of chronic medical conditions with anemia contributing as well. - PT/OT consulted 2)? Likely upper GI bleed with acute on chronic anemia:? Contacted by nursing after the pt was seen due to significant melena with BM yesterday.? The pt denied having this prior to admission.? CT abdomen did have thickening of the duodenum, suggestive of possible ulceration.? Surgery consulted due to further drop in H/H. S/P 2 units PRBCs transfusion. Pt with Xarelto on listed home medication list, however, Cardiology discontinued this February 2021.? Question if uremia contributing as well. - Pantoprazole 60mg IV BID - Trend H/H with daily CBC - Surgery consulted, appreciate recommendations and care - Plan for endoscopy later today - Continue home iron supplement 3)? Abdominal pain:? Possibly due to ulceration, although uncertain why sudden flare.? Resolving prior to intervention. - Continue to monitor 4)? Shortness of breath:? Possibly due to worsening anemia.? Echo done in January with mild aortic stenosis but normal EF.? Pt does note significant worsening of orthopnea since then.? CXR without significant pulmonary edema.? Due to significant immotility at home, is concerning for possible PE as well. Pt is laying comfortably much more prone than able to at home this morning, hopefully correction of anemia is helping. - V/Q scan completed this morning, results pending - Will monitor as anemia hopefully stabilizing/improving - If no improvement, plan to repeat Echo - Continue home Torsemide 5)? Hypertension, CAD:? Stable - Continue home antihypertensives 6)? CKD:? Pt with worsening of kidney function with uremia.? Creatinine stable from yesterday, BUN slightly more elevated. Electrolytes in acceptable range. Overall poor prognosis due to worsening kidney function. Hopeful will improve slightly after transfusion. - Continue to trend with daily BMPs - Discussed potential dialysis with the pts son this morning. He is in agreement that would not recommend for patient. Will need further discussion dependent on trending of labs. 7)? Bradycardia:? Stable.? Pt has declined pacemaker in the past. 8)? Chronic venous stasis insufficiency with chronic osteomyelitis:? Stable appearance 9)? DM Type 2: - Continue home Lispro and sliding scale coverage - ACHS blood sugars Code:? DNR, confirmed with pt and son this evening Diet:? Diabetic diet DVT ppx:? Hold for now due to potential bleeding Dispo: Pt requiring at least 2 more midnights until stable for d/c, pending endoscopy, ongoing stabilization of H/H and respiratory status, PT/OT eval. Discussed with care management. They will alert hospice of possible evaluation. Will also discuss with pts son dispo planning, with goal to be having the pt be with his as much as possible. Time Spent With Patient Critical Care time: I spent a total of [] minutes of critical care time on this patient's care toda y; this time is exclusive of procedural time. Quality VTE Deep Vein Thrombosis/Pulmonary Embolism Present on Admission: No
--- NOTE | 2021-07-10 12:01 | PT-IP ANOTE ---
Pt declined PT this AM due to not feeling well, s/p blood transfusion, and has pending procedure this afternoon. He would like PT to return after procedure.
--- NOTE | 2021-07-10 12:38 | OT.IPNOTE ---
Pt to have procedure this PM and not wanting to do OT eval until tomorrow, therefore hold OT eval.
--- NOTE | 2021-07-10 13:06 | CM.DPNOTE ---
DCP Note Reviewed chart. Spoke w/Dr Lewis this morning; son interested in Hospice referral and would like to discuss dispo options further w/this CARRIER OPERATOR. Patient scheduled for an EGD tis afternoon Attempted assessment at bedside and patient sleeping soundly. Son not at bedside at this time. Requested that ANGELO Scanlon, begin referral [facility] and she kindly agreed This CARRIER OPERATOR will plan to follow closely for coordination of DCP w/patient and family. PT/OT evals pending; likely after patient's EGD JW
--- NOTE | 2021-07-10 13:18 | CM.DPNOTE ---
Faxed referral to [facility] per Jamee and reeived fax conf. Ghislaine Koch CM assist.
--- NOTE | 2021-07-10 14:04 | PM.OP.EGD ---
Operative Date/Time/Diagnoses Date of procedure: 07/10/21 Time of procedure: 14:04 Pre-op diagnosis: Melena Post-op diagnosis: same Procedure & Clinicians Study performed: Esophagogastroduodenoscopy Same procedure as scheduled: Yes Surgeon: Delano Watson Procedure Notes Procedure in detail: A timeout was performed. A bite blocked was placed. The patient was positioned in the left lateral decubitus position. The endoscope was inserted through the bite block and passed through the esophagus and stomach and into the duodenum. There was inflammation of the duodenal mucosa. Random biopsies were taken from the duodenum and duodenal bulb. There appeared to be a few resolving ulcers in the duodenal bulb. There was no evidence of active or recent bleeding. The scope was withdrawn into the stomach. There was some inflammation in the antrum and random biopsies were taken from the antrum. The rest of the stomach was normal. The scope was retroflexed and and there was no hiatal hernia. The scope was withdrawn into the esophagus and no abnormalities were seen. The scope was withdrawn. The patient was awakened and brought to recovery. Findings: duodenal ulcer and gastritis Post-procedure Disposition: PACU
--- NOTE | 2021-07-10 14:20 | SUR.PHASEI ---
Report called to Frantz JAIME and opportunity for questions given. Return phone number at time of report is [phone]
[2021-07-10] MEDS: NYSTATIN POWDER 15GM 1 APPLIC TOP (17:42)
[2021-07-10] MEDS: SILVER SULFADIAZINE 1% CREAM 50 GM 1 APPLIC TOP (17:43)
[2021-07-11] VITALS (7 sets, daily range): BP systolic 127–159; BP diastolic 55–69; PULSE 59–80; RESP 14–20; TEMP 35.6–36.7; O2SAT 92–98
[2021-07-11] MEDS: HYDROMORPHONE 1 MG INJ IV ×3 (01:40→18:08)
[2021-07-11 04:45] LABS: Add Manual Diff / Slide Review NO; Basophils Absolute Auto 0 /uL (0-100); Basophils Percent Auto 0.3 % (0-2); Calcium 9.2 mg/dL (8.4-10.2); Carbon Dioxide 28 mmol/L (22-32); Chloride 111 mmol/L (98-107); Eosinophils Absolute Auto 100 /uL (0-450); Eosinophils Percent Auto 1.9 % (2-4); Estimated Glomerular Filt Rate 17 mL/min (>60); Glucose 178 mg/dL (80-110); HEMOLYSIS < 15 (0-50); Hematocrit 25.8 % (41-53); Hemoglobin 8.5 g/dL (13.5-17.5); Lymphocytes Absolute Auto 600 /uL (1100-4500); Lymphocytes Percent Auto 14.1 % (25-40); Mean Corpuscular HGB Conc 32.8 % (30-36); Mean Corpuscular Hemoglobin 30.7 PG (26-34); Mean Corpuscular Volume 93.5 fL (80-100); Monocytes Absolute Auto 500 /uL (0-900); Monocytes Percent Auto 11.3 % (3-14); Neutrophils Absolute Auto 3300 /uL (1500-7000); Neutrophils Percent Auto 72.4 % (50-75); Platelet Count 82 X10^3/uL (150-400); Potassium 4.9 mmol/L (3.4-5.1); Red Blood Cell Count 2.76 X10^6/uL (4.5-5.9); Red Cell Distribution Width 21.2 % (11.6-14.8); Sodium 143 mmol/L (137-145); White Blood Cell Count 4.5 X10^3/uL (4.5-11.0)
[2021-07-11 04:53] LABS: BUN Creatinine Ratio 38.1 (6-22)
[2021-07-11 04:55] LABS: Blood Urea Nitrogen 131 mg/dL (9-20)
[2021-07-11 05:20] LABS: Anisocytosis 1+
[2021-07-11] MEDS: ACETAMINOPHEN 325 MG TABLET 650 MG PO (06:24)
[2021-07-11] MEDS: PANTOPRAZOLE 40 MG VIAL IV ×2 (06:24→18:07)
--- NOTE | 2021-07-11 08:35 | PM.PN.1 ---
Subjective Subjective Date Patient Seen: 07/11/21 Time Patient Seen: 07:50 Interval history: The pt reports that he has not specific concerns this morning, he is just feeling tired after not sleeping well last night. He denies any chest pain, SOB. His abdominal pain is fully resolved. Exam Vital Signs (past 8 hours): - 07/11/21 01:30 07/11/21 06:15 Temperature 96.1 F L 96.9 F L Pulse Rate 64 77 Respiratory Rate 20 14 Blood Pressure 156/68 H 159/69 H Pulse Oximetry 97 94 Oxygen Delivery Method Room Air Oxygen Flow Rate 3 Narrative Exam Narrative: Gen:? NAD, laying comfortably in bed, alert and interactive with conversation CV:? RRR, grade 3/6 systolic murmur Resp:? clear to auscultation bilaterally Abd:? soft, nondistended, nontender, normoactive bowel sounds Ext:? unchanged from yesterday, legs are wrapped today Objective Labs Result Diagrams: 07/11/21 03:30 07/11/21 03:30 Labs: Laboratory Results - last 24 hr 07/10/21 07/11/21 07/11/21 08:07 03:30 03:30 WBC 4.5 RBC 2.76 L Hgb 8.5 L Hct 25.8 L MCV 93.5 MCH 30.7 MCHC 32.8 RDW 21.2 H Plt Count 82 L Neut % (Auto) 72.4 Lymph % (Auto) 14.1 L [place] % (Auto) 11.3 Eos % (Auto) 1.9 L Baso % (Auto) 0.3 Neut # (Auto) 3300 Lymph # (Auto) 600 L [place] # (Auto) 500 Eos # (Auto) 100 Baso # (Auto) 0 RBC Morphology See below Anisocytosis 1+ H Sodium 143 143 Potassium 4.8 4.9 Chloride 110 H 111 H Carbon Dioxide 25 28 BUN 136 H* 131 H* Creatinine 3.38 H 3.44 H Estimated GFR 17 L 17 L BUN/Creatinine Ratio 40.2 H 38.1 H Glucose 163 H 178 H Calcium 9.4 9.2 Total Bilirubin 0.5 AST 35 ALT 33 Alkaline Phosphatase 65 Total Protein 5.4 L Albumin 2.8 L Globulin 2.6 Albumin/Globulin Ratio 1.1 PFSH Medical History Anemia (2010) CHF (congestive heart failure) CKD (chronic kidney disease) stage 4, GFR 15-29 ml/min Diabetes mellitus (1997) Diabetic nephropathy Edema Foot pain (2002) Gastric ulcer (1966) Hearing loss (1935) History of chronic skin ulcer History of malignant neoplasm of prostate History of urethral stricture Hypertension Infectious disease (2011) Kidney failure Lumbar spine pain Osteomyelitis (2011) Peripheral neuropathy (2002) Prostate cancer (1998) Urethral stricture 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 Urinary incontinence Urinary incontinence, mixed Surgical History Anesthesia complication History of cataract removal with insertion of prosthetic lens (2012) History of lumbar discectomy History of lumbar laminectomy History of prostate surgery (1998) History of surgery (1951) History of tonsillectomy and adenoidectomy (1947) Hx of cystoscopy (10/17/19) Family History Father Cancer Mother Heart disease Hypertension Sister Diabetes mellitus Social History household members: spouse Smoking Status: Former smoker Tobacco: How many years used: 30 alcohol intake: current Assessment & Plan Assessment & Plan narrative: Pt is an 86yo man with CKD, bradycardia, CAD, depression, HTN, GERD, chronic osteomyelitis, DM Type 2, and hx of prostate cancer who presented with weakness and abdominal pain. 1)? Global weakness:? Likely multifactorial.? Most likely due to chronic deconditioning and continued progression of chronic medical conditions with anemia contributing as well. - PT/OT consulted 2)? Upper GI bleed with acute on chronic anemia:? S/P 2 units PRBCs transfusion on 07/09/21.? Pt with Xarelto on listed home medication list, however, Cardiology discontinued this February 2021.? Question if uremia contributing as well. Endoscopy completed yesterday did show duodenal ulceration in addition to generalized inflammation of the stomach and duodenum. H/H with minimal drop overnight. - Pantoprazole 60mg IV BID - Trend H/H with daily CBC - Surgery consulted, appreciate recommendations and care - F/U biopsy results - Continue home iron supplement 3)? Abdominal pain:? Possibly due to ulceration, although uncertain why sudden flare.? Resolved. - Continue to monitor 4)? Shortness of breath:? Possibly due to worsening anemia.? Echo done in January with mild aortic stenosis but normal EF.? Pt does note significant worsening of orthopnea since then.? CXR without significant pulmonary edema.? Due to significant immotility at home, is concerning for possible PE as well, however V/Q negative.? Pt is laying comfortably much more prone than able to at home. Likely at baseline now. - Continue oxygen supplementation as needed - Continue home Torsemide 5)? Hypertension, CAD:? Slightly elevated, but not severely. - Continue home antihypertensives - Will not aggressively treat at this time, which pt is in agreement with 6)? CKD:? Pt with worsening of kidney function with uremia.? Overall stable since admission.? Electrolytes in acceptable range.? Overall poor prognosis due to worsening kidney function. - Continue to trend with daily BMPs - Discussed potential dialysis with the pts and his son this morning. The pt would not be interested in pursuing if indicated in the future. 7)? Bradycardia:? Stable.? Pt has declined pacemaker in the past. 8)? Chronic venous stasis insufficiency with chronic osteomyelitis:? Stable appearance 9)? DM Type 2: - Continue home Lispro and sliding scale coverage - ACHS blood sugars Code:? DNR, confirmed with pt and son at admission Diet:? Diabetic diet DVT ppx:? Hold for now due to potential bleeding Dispo:? Discussed equipment operator intermodal yard goals again with the pt and his son this morning. Son and family most interested in home with hospice care. Pt is leaning that direction as well. Son remains concerned about caregivers at home. Will discuss with care management later today. PT/OT to evaluate today for safe dispo planning as well. Potentially stable for d/c tomorrow. Time Spent With Patient Critical Care time: I spent a total of [] minutes of critical care time on this patient's care today; this time is exclusive of procedural time. Quality VTE Deep Vein Thrombosis/Pulmonary Embolism Present on Admission: No
--- NOTE | 2021-07-11 10:40 | OT.IPNOTE ---
Went to speak to pt regarding OT eval and needs. Pt states going on hospice and not wanting to do any therapy. Therefore discharge pt from OT services.
--- NOTE | 2021-07-11 11:35 | PT.IIE ---
Current Diagnoses Melena (07/09/21) Surgery Performed Operation Date: 07/10/21 16:00 Actual Procedures p Esophagogastroduodenoscopy with biopsy - Delano Watson MD Surgical History (Last Reviewed 09/06/20 @ 20:40 by Maria Elena Moore DO) Anesthesia complication History of cataract removal with insertion of prosthetic lens (2012) Medical History (Last Reviewed 07/09/21 @ 18:43 by Reji Sewell DO) Anemia (2009) CHF (congestive heart failure) CKD (chronic kidney disease) stage 4, GFR 15-29 ml/min Diabetes mellitus (1997) Diabetic nephropathy Edema Foot pain (2002) Gastric ulcer (1966) Hearing loss (1935) History of chronic skin ulcer History of malignant neoplasm of prostate History of urethral stricture Hypertension Infectious disease (2011) Kidney failure Lumbar spine pain Osteomyelitis (2011) Peripheral neuropathy (2002) Prostate cancer (1998) Urethral stricture 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 Urinary incontinence Urinary incontinence, mixed Physical Therapy Inpatient Evaluation/Re-Eval M1 PT/OT-IP Prior Functional Status Start: 07/11/21 12:09 Freq: NEEDED Status: Active Protocol: Document 07/11/21 11:35 AB (Rec: 07/11/21 12:27 AB [email or web address]) Medical Review Prior Functional Status Medical History Reviewed Yes Communication able to make needs known Mobility and Gait pt stated that he his spouse assists him with set up of 4WW for ambulation but able to ambulate using 4WW short distances only Social History Household Members spouse Living Arrangements House Number of Floors (Floors) Two Floors Number of Stairs To Enter/Railing? pt stays on main level of the house 1 step to enter the house Home Environment High Toilet,Walk in Shower Home Equipment Front Wheel Walker,Shower Seat with Backrest,Hand Held Shower,Grab Bars Near Toilet, Grab Bars In Shower Additional Social History Comment homehealth nurse comes in ~ 3x /wk for wound management on BLE pt stated that he sleeps on his recliner M2 PT-IP Current Condition Start: 07/11/21 12:09 Freq: NEEDED Status: Active Protocol: Document 07/11/21 11:35 AB (Rec: 07/11/21 12:27 AB [email or web address]) Physical Therapy Current Condition Current Condition Evaluation Date 04/29/22 Treatment Diagnosis gastritis; duodenal ulcer; weakness Onset Date 07/09/21 M3 PT-IP Subjective Start: 07/11/21 12:09 Freq: NEEDED Status: Active Protocol: Document 07/11/21 11:35 AB (Rec: 07/11/21 12:27 AB [email or web address]) Subjective Physical Therapy Visit Type Type Initial Evaluation Visit Start Time 11:35 Visit Stop Time 12:00 Total Visit Minutes 25 Number of CONDUCTOR PULLMAN Visits 0 Physical Therapy Visit Comments Patient Comments pt initially refusing PT and stated that he plans to go on hospice care. educated pt on PT eval and rationale and agreed to do PT . Therapy Pain Assessment Pain When Pain Assessed At Rest Location Bilateral Leg Intensity 3 Scale Used L>R Pain Management Techniques Distraction,Elevation, Modification of Treatment,Re- positioning,Timing of Activity with Medications M4 PT-IP Mobility and Gait Start: 07/11/21 12:09 Freq: NEEDED Status: Active Protocol: Document 07/11/21 11:35 AB (Rec: 07/11/21 12:27 AB [email or web address]) PT-Bed Mobility Assessment Rolling Level of Assist Minimal Assistance Supine to Sit Supine to Sit Maximum Assistance,2 Person Assistance,Head of Bed Elevated,Bedrails Sit to Supine Sit to Supine Moderate Assistance,2 Person Assistance,Bedrails Scooting Scooting to Edge of Bed Dependent Scooting Up and Down in Bed Dependent PT-Transfer Assessment Comments Mobility Comments checked on pt and pt initially refusing and stated that he is planning to go on hospice care. informed pt regarding PT assessment for mobility needs for d/c planning under hospice care. pt understood and agreed to do PT. completed supine to sit max A x 2 and max cues with HOB elevated and pt used bed rail. increase posterior trunk lean requiring max A x 1-2 for sitting balance. (+) SOB but with O2 on. positioned pt on EOB total A and able to sit CGA to min A after repositioning. pt tolerated ~ 5 min of sitting on EOB. refused to stand and transfer. pt stated that he knows that he is ready for hospice care. completed sit to supine mod A x 2 and max cues. total A x 2 for scooting and positioning in bed. able to complete side rolling L<>R min A for pad/ pillow placement. Call light and table placed within reach. asked pt again if he is willing to do PT and pt refused. stated that he is ready for hospice. informed manager rn case. PT-Balance Assessment Sitting Balance and Reactions Static Sitting Balance Ability Poor Dynamic Sitting Balance Ability Poor M5 PT-IP Objective Assessments Start: 07/11/21 12:09 Freq: NEEDED Status: Active Protocol: Document 07/11/21 11:35 AB (Rec: 07/11/21 12:27 AB [email or web address]) Orientation Orientation/Cognition Level of Alertness Alert Orientation Name,Place,Situation Safety Awareness Decreased Safety Awareness Muscle Tone Muscle Tone WNL Yes M6 PT-IP Treatment Start: 07/11/21 12:09 Freq: NEEDED Status: Active Protocol: Document 07/11/21 11:35 AB (Rec: 07/11/21 12:27 AB [email or web address]) Physical Therapy Treatment Education Education Provided Safety M7 PT-IP Assessment and Plan Start: 07/11/21 12:09 Freq: NEEDED Status: Active Protocol: Document 07/11/21 11:35 AB (Rec: 07/11/21 12:27 AB [email or web address]) PT Summary Assessment and Plan Potential Rehabilitation Potential Fair Status of Condition at Evaluation Evolving Summary Impairments Pain,ROM,Strength,Balance, Coordination,Sensation,Tone, Cognition,Bed Mobility, Transfers,Gait,Activity Tolerance Assessment Summary PT eval completed and pt requiring max A x 2 to total AX 2 for bed mobility and sat on EOB with assist. pt stated that he is going on hospice care and refuse PT. pt is aware of the risks/benefits of PT intervention and requested not to have PT. trial manager informed. will d/c PT. Frequency of Treatment Frequency Of Treatment Discharge Recommendations To Nursing Amount of Assist Needed Mechanical Lift Discharge Recommendations PT Discharge Recommendations Home with / Assist Available Transportation Needs at Discharge Stretcher/Ambulance
[2021-07-11] MEDS: INSULIN LISPRO 100 UNIT/ML 3ML VIAL SUBCUT ×3 (11:57→23:34)
--- NOTE | 2021-07-11 13:43 | CM.DPNOTE ---
DCP Note Spoke w/son Francisco and JERRELL Salinas this afternoon by phone, reviewed DCP Family has spoken w/Lynda at [facility] and have decided to bring patient home w/assist from family, refrigeration engine operator if this can be secured, and w/[facility] services. Now awaiting f/u from [facility] re hospital bed delivery and schedule for start of care Discussed in home care services; family making calls to local agencies to determine who has caregivers available and when they could start care in patient's home. Son Francisco and Rita planning on staying in the basement of patient's home to be available to assist as needed. UR YENI Arcos alerts this TEACHING SUPERVISOR that [facility] has authorized an inpatient stay for this patient Reviewed timeline for coordination and DC; family expects to take patient home Wednesday, which they hope will give time to arrange patient's home, coordinate w/Hospice, and hopefully secure an additional caregiver to assist w/patient's daily hygiene needs. PT/OT attempted today; patient declining. PT Molly able to get patient to the edge of bed but patient barely able to support himself to sit upright- family aware Plan: DC home expected early in the week, home w/family, refrigeration engine operator (?) and Hospice service CM team will remain available to support patient/family and coordinate DCP w/patient/family and [facility]
[2021-07-11] MEDS: SODIUM CHLORIDE 0.9% FLUSH 10 ML IV (23:35)
[2021-07-12 02:07] VITALS: O2SAT 99
[2021-07-12 06:01] LABS: Add Manual Diff / Slide Review NO; Basophils Absolute Auto 0 /uL (0-100); Basophils Percent Auto 0.2 % (0-2); Eosinophils Absolute Auto 100 /uL (0-450); Eosinophils Percent Auto 1.9 % (2-4); Hematocrit 25.6 % (41-53); Hemoglobin 8.3 g/dL (13.5-17.5); Lymphocytes Absolute Auto 600 /uL (1100-4500); Lymphocytes Percent Auto 12.2 % (25-40); Mean Corpuscular HGB Conc 32.6 % (30-36); Mean Corpuscular Hemoglobin 30.4 PG (26-34); Mean Corpuscular Volume 93.4 fL (80-100); Monocytes Absolute Auto 700 /uL (0-900); Monocytes Percent Auto 14.2 % (3-14); Neutrophils Absolute Auto 3400 /uL (1500-7000); Neutrophils Percent Auto 71.5 % (50-75); Platelet Count 85 X10^3/uL (150-400); Red Blood Cell Count 2.74 X10^6/uL (4.5-5.9); Red Cell Distribution Width 20.8 % (11.6-14.8); White Blood Cell Count 4.7 X10^3/uL (4.5-11.0)
[2021-07-12 06:04] LABS: Carbon Dioxide 27 mmol/L (22-32); Chloride 114 mmol/L (98-107); Estimated Glomerular Filt Rate 16 mL/min (>60); Glucose 146 mg/dL (80-110); HEMOLYSIS < 15 (0-50); Potassium 4.7 mmol/L (3.4-5.1); Sodium 144 mmol/L (137-145)
[2021-07-12] MEDS: PANTOPRAZOLE 40 MG VIAL IV ×2 (06:04→17:26)
[2021-07-12 06:18] LABS: BUN Creatinine Ratio 35.3 (6-22)
[2021-07-12 06:19] LABS: Blood Urea Nitrogen 124 mg/dL (9-20)
[2021-07-12 06:24] LABS: Anisocytosis 1+
--- NOTE | 2021-07-12 06:24 | PC.NURSE ---
Call from Lorrie in lab, critical lab :BUN at 124. Called Dr Lord with results.
[2021-07-12 07:00] VITALS: BP 139/59; PULSE 75; RESP 14; TEMP 36.1; O2SAT 94
[2021-07-12] MEDS: INSULIN LISPRO 100 UNIT/ML 3ML VIAL SUBCUT ×4 (08:23→21:52)
[2021-07-12] MEDS: OXYCODONE 5 MG/5 ML ORAL SOLUTION PO ×3 (08:28→22:42)
[2021-07-12] MEDS: PYRIDOXINE (VITAMIN B6) 50 MG TABLET 100 MG PO (08:32)
[2021-07-12] MEDS: AMLODIPINE 5 MG TABLET 2.5 MG PO (08:32)
[2021-07-12] MEDS: CHOLECALCIFEROL (VITAMIN D3) 1,000 UNIT TABLET 2000 UNIT PO (08:34)
[2021-07-12] MEDS: ASPIRIN EC 81 MG TABLET PO (08:34)
[2021-07-12] MEDS: FERROUS SULFATE 325 MG TABLET PO (08:35)
[2021-07-12] MEDS: SODIUM CHLORIDE 0.9% FLUSH 10 ML IV ×2 (08:41→21:57)
[2021-07-12] MEDS: TORSEMIDE 10 MG TABLET 20 MG PO (08:42)
[2021-07-12] MEDS: CLOBETASOL 0.05% OINTMENT 15 GM 1 APPLIC TOP (08:42)
--- NOTE | 2021-07-12 10:02 | PM.PN.1 ---
Subjective Subjective Date Patient Seen: 07/12/21 Time Patient Seen: 10:02 Interval history: Resting comfortable at time of interview. Denies any pain. He has had some pain in his left leg that is feeling fine this morning. Denies appetite. No nausea vomiting. Has been resting in bed and not really ambulating. Exam Vital Signs (past 8 hours): - 07/12/21 02:07 07/12/21 07:00 Temperature 97 F L Pulse Rate 75 Respiratory Rate 14 Blood Pressure 139/59 L Pulse Oximetry 99 94 Oxygen Delivery Method Nasal Cannula Oxygen Flow Rate 3 Narrative Exam Narrative: GENERAL: Alert and oriented, appearing stated age and in no acute distress. HEENT: Head normocephalic/atraumatic. Extraocular movements intact. LUNGS: Diminished inspiratory effort but otherwise, clear to ausculation bilaterally, no wheezes, rhonchi or rales. CV: Normal S1 and S2 with regular rate and rhythm, 3/6 systolic murmurs, no rubs or gallops. ABDOMEN: Soft, non-tender, non-distended, no organomegaly. Positive bowel sounds. EXTREMITIES: bilateral lower extremity edema, 3+ pitting, wrapped with JAVON bandages. NEURO: Cranial nerves II through XII grossly intact, no focal deficits. PSYCH: Alert and oriented x 3. SKIN: Skin is dry and flaking on lower extremities, wrapped. Objective Labs Result Diagrams: 07/12/21 05:46 07/12/21 05:46 Labs: Laboratory Results - last 24 hr 07/12/21 07/12/21 05:46 05:46 WBC 4.7 RBC 2.74 L Hgb 8.3 L Hct 25.6 L MCV 93.4 MCH 30.4 MCHC 32.6 RDW 20.8 H Plt Count 85 L Neut % (Auto) 71.5 Lymph % (Auto) 12.2 L [place] % (Auto) 14.2 H Eos % (Auto) 1.9 L Baso % (Auto) 0.2 Neut # (Auto) 3400 Lymph # (Auto) 600 L [place] # (Auto) 700 Eos # (Auto) 100 Baso # (Auto) 0 RBC Morphology See below Anisocytosis 1+ H Sodium 144 Potassium 4.7 Chloride 114 H Carbon Dioxide 27 BUN 124 H* Creatinine 3.51 H Estimated GFR 16 L BUN/Creatinine Ratio 35.3 H Glucose 146 H Calcium 9.0 PFSH Medical History Anemia (2009) CHF (congestive heart failure) CKD (chronic kidney disease) stage 4, GFR 15-29 ml/min Diabetes mellitus (1997) Diabetic nephropathy Edema Foot pain (2002) Gastric ulcer (1966) Hearing loss (1935) History of chronic skin ulcer History of malignant neoplasm of prostate History of urethral stricture Hypertension Infectious disease (2011) Kidney failure Lumbar spine pain Osteomyelitis (2011) Peripheral neuropathy (2002) Prostate cancer (1998) Urethral stricture 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 Urinary incontinence Urinary incontinence, mixed Surgical History Anesthesia complication History of cataract removal with insertion of prosthetic lens (2012) History of lumbar discectomy History of lumbar laminectomy History of prostate surgery (1998) History of surgery (1951) History of tonsillectomy and adenoidectomy (1947) Hx of cystoscopy (10/17/19) Family History Father Cancer Mother Heart disease Hypertension Sister Diabetes mellitus Social History household members: spouse Smoking Status: Former smoker Tobacco: How many years used: 30 alcohol intake: current Assessment & Plan Assessment & Plan narrative: Pt is an 86 yo man with CKD, bradycardia, CAD, depression, HTN, GERD, chronic osteomyelitis, DM Type 2, and history of prostate cancer who presented with weakness and abdominal pain, HD #3 1)? Global weakness. Likely multifactorial from chronic deconditioning and progression of chronic medical conditions. Plan: PT/OT consulting. 2)? Upper GI bleed with acute on chronic anemia -S/P 2 units PRBCs transfusion on 07/09/21.? -EGD on 07/11/21 showed duodenal ulceration in addition to generalized inflammation of the stomach and duodenum.? H/H trending down but stable. Plan: Contginue pantoprazole 60mg IV BID. Trend H/H with daily CBC. Surgery consulting, appreciate their recommendations and care. Continue home iron supplement. 3)? Abdominal pain, resolved. Plan: Continue to monitor 4)? Shortness of breath, chronic -Possibly due to worsening anemia.? -Echo done in January with mild aortic stenosis but normal EF.? Patient does note significant worsening of orthopnea since then.? -CXR without significant pulmonary edema.? -Due to significant immobility at home, concern for possible PE as well, however V/Q negative.? -Likely at baseline now. Plan: Continue oxygen supplementation as needed. Continue home Torsemide. 5)? Hypertension, CAD, chronic -Slightly elevated, but not severely. Plan: Continue home antihypertensives. No aggressive treatment. 6)? CKD -Worsening of kidney function with uremia.? -Overall stable since admission.? -Electrolytes in acceptable range.? -Overall poor prognosis due to worsening kidney function. Plan: Continue to trend with daily BMPs. Not interested in dialysis. 7)? Bradycardia, stable.? Plan: Has declined pacemaker. 8)? Chronic venous stasis insufficiency with chronic osteomyelitis, stable appearance Plan: Supportive care. 9)? DM Type, chronic Plan: Continue home Lispro and sliding scale coverage. ACHS blood sugars. Code:? DNR, confirmed with pt and son at admission Diet:? Diabetic diet DVT ppx:? Hold for now due to potential bleeding Dispo:? Home with hospice on Wednesday. Quality VTE Deep Vein Thrombosis/Pulmonary Embolism Present on Admission: No
--- NOTE | 2021-07-12 14:24 | CM.DPNOTE ---
DCP Note LM for deedee Singh this morning checking in re dispo plan and updated that [facility] had agreed with an inpatient authorization for patient. Received VM from deedee Singh; Family has been coordinating plan w/[facility] care giving agency/cooperative in [place]; they have a scheduled mtg Wednesday. In addition, [facility] has coordinated hospital bed delivery Wednesday w/RN to start care Wednesday Francisco suggests patient DC home Wednesday afternoon and can be in touch w/CM team re: help arranging BLS transport Plan: DC is anticipated Wednesday, home w/family via BLS transport (once hospital bed in place) [facility] to f/u Wednesday unless a slot Wednesday opens [facility]W
[2021-07-12] MEDS: SILVER SULFADIAZINE 1% CREAM 50 GM 1 APPLIC TOP (15:57)
[2021-07-12] MEDS: NYSTATIN POWDER 15GM 1 APPLIC TOP (15:58)
--- NOTE | 2021-07-12 16:24 | PC.NURSE ---
Day shift: BLE dressings changed per Pt's instructions at approx 1600m today. Pt tolerated well. MD ordered meds applied per Pt instructions as well.
[2021-07-12 19:56] VITALS: BP 152/69; PULSE 79; RESP 18; TEMP 35.7; O2SAT 98
[2021-07-13] MEDS: HYDROMORPHONE 1 MG INJ IV (02:25)
[2021-07-13] MEDS: OXYCODONE 5 MG/5 ML ORAL SOLUTION PO (05:17)
[2021-07-13] MEDS: PANTOPRAZOLE 40 MG VIAL IV (05:18)
[2021-07-13 06:21] LABS: Add Manual Diff / Slide Review NO; Basophils Absolute Auto 0 /uL (0-100); Basophils Percent Auto 0.1 % (0-2); Eosinophils Absolute Auto 100 /uL (0-450); Eosinophils Percent Auto 2.8 % (2-4); Hematocrit 26.1 % (41-53); Hemoglobin 8.5 g/dL (13.5-17.5); Lymphocytes Absolute Auto 600 /uL (1100-4500); Lymphocytes Percent Auto 14.8 % (25-40); Mean Corpuscular HGB Conc 32.6 % (30-36); Mean Corpuscular Hemoglobin 30.5 PG (26-34); Mean Corpuscular Volume 93.6 fL (80-100); Monocytes Absolute Auto 600 /uL (0-900); Monocytes Percent Auto 15.8 % (3-14); Neutrophils Absolute Auto 2700 /uL (1500-7000); Neutrophils Percent Auto 66.5 % (50-75); Platelet Count 86 X10^3/uL (150-400); Red Blood Cell Count 2.79 X10^6/uL (4.5-5.9); Red Cell Distribution Width 20.2 % (11.6-14.8); White Blood Cell Count 4.1 X10^3/uL (4.5-11.0)
[2021-07-13 06:43] LABS: Anisocytosis 1+
[2021-07-13 06:44] LABS: BUN Creatinine Ratio 33.5 (6-22); Calcium 8.9 mg/dL (8.4-10.2); Carbon Dioxide 26 mmol/L (22-32); Chloride 111 mmol/L (98-107); Estimated Glomerular Filt Rate 17 mL/min (>60); Glucose 170 mg/dL (80-110); HEMOLYSIS < 15 (0-50); Potassium 4.7 mmol/L (3.4-5.1); Sodium 145 mmol/L (137-145)
[2021-07-13 06:47] LABS: Blood Urea Nitrogen 111 mg/dL (9-20)
[2021-07-13 07:00] VITALS: BP 137/66; PULSE 62; RESP 14; TEMP 35.7; O2SAT 97
--- NOTE | 2021-07-13 08:04 | PM.PN.1 ---
Subjective Subjective Date Patient Seen: 07/13/21 Time Patient Seen: 08:04 Interval history: Uneventful night. Waiting for hospice placement tomorrow at home. Denies pain. No nausea or vomiting. Denies shortness of breath. Exam Vital Signs (past 8 hours): Oxygen Delivery Method Nasal Cannula Oxygen Flow Rate 3 Narrative Exam Narrative: GENERAL:? Alert and oriented, appearing stated age and in no acute distress. HEENT:? Head normocephalic/atraumatic.? Extraocular movements intact. LUNGS:? Clear to ausculation bilaterally, no wheezes, rhonchi or rales. CV:? Normal S1 and S2 with regular rate and rhythm, 3/6 systolic murmurs, no rubs or gallops. ABDOMEN:? Soft, non-tender, non-distended, no organomegaly.? Positive bowel sounds. EXTREMITIES:? bilateral lower extremity edema, 3+ pitting, wrapped with JAVON bandages. NEURO:? Cranial nerves II through XII grossly intact, no focal deficits. PSYCH:? Alert and oriented x 3. SKIN:? ? Skin is dry and flaking on lower extremities, wrapped. Objective Labs Result Diagrams: 07/13/21 06:03 07/13/21 06:03 Labs: Laboratory Results - last 24 hr 07/13/21 07/13/21 06:03 06:03 WBC 4.1 L RBC 2.79 L Hgb 8.5 L Hct 26.1 L MCV 93.6 MCH 30.5 MCHC 32.6 RDW 20.2 H Plt Count 86 L Neut % (Auto) 66.5 Lymph % (Auto) 14.8 L [place] % (Auto) 15.8 H Eos % (Auto) 2.8 Baso % (Auto) 0.1 Neut # (Auto) 2700 Lymph # (Auto) 600 L [place] # (Auto) 600 Eos # (Auto) 100 Baso # (Auto) 0 RBC Morphology See below Anisocytosis 1+ H Sodium 145 Potassium 4.7 Chloride 111 H Carbon Dioxide 26 BUN 111 H* Creatinine 3.31 H Estimated GFR 17 L BUN/Creatinine Ratio 33.5 H Glucose 170 H Calcium 8.9 PFSH Medical History Anemia (2009) CHF (congestive heart failure) CKD (chronic kidney disease) stage 4, GFR 15-29 ml/min Diabetes mellitus (1997) Diabetic nephropathy Edema Foot pain (2002) Gastric ulcer (1966) Hearing loss (1935) History of chronic skin ulcer History of malignant neoplasm of prostate History of urethral stricture Hypertension Infectious disease (2011) Kidney failure Lumbar spine pain Osteomyelitis (2011) Peripheral neuropathy (2002) Prostate cancer (1998) Urethral stricture 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 Urinary incontinence Urinary incontinence, mixed Surgical History Anesthesia complication History of cataract removal with insertion of prosthetic lens (2012) History of lumbar discectomy History of lumbar laminectomy History of prostate surgery (1998) History of surgery (1951) History of tonsillectomy and adenoidectomy (1947) Hx of cystoscopy (10/17/19) Family History Father Cancer Mother Heart disease Hypertension Sister Diabetes mellitus Social History household members: spouse Smoking Status: Former smoker Tobacco: How many years used: 30 alcohol intake: current Assessment & Plan Assessment & Plan narrative: Pt is an 86 yo man with CKD, bradycardia, CAD, depression, HTN, GERD, chronic osteomyelitis, DM Type 2, and history of prostate cancer who presented with weakness and abdominal pain, HD #4 1)? Global weakness.? Likely multifactorial from chronic deconditioning and progression of chronic medical conditions. Plan:? PT/OT consulting. 2)? Upper GI bleed with acute on chronic anemia -S/P 2 units PRBCs transfusion on 07/09/21.? -EGD on 07/11/21 showed duodenal ulceration in addition to generalized inflammation of the stomach and duodenum.? H/H trending stable. Plan:? Continue pantoprazole 60mg IV BID.? Trend H/H with daily CBC.? Surgery consulting. Continue home iron supplement. 3)? Shortness of breath, chronic -Possibly due to worsening anemia.? -Echo done in January with mild aortic stenosis but normal EF.? Patient does note significant worsening of orthopnea since then.? -CXR without significant pulmonary edema.? -Due to significant immobility at home, concern for possible PE as well, however V/Q negative.? -Likely at baseline now. Plan:? Continue oxygen supplementation as needed, not requiring any at the moment.? Continue home Torsemide. 4)? Hypertension, CAD, chronic -Slightly elevated, but not severely. Plan:? Continue home antihypertensives.? No aggressive treatment. 5)? CKD -Worsening of kidney function with uremia.? -Overall stable since admission.? -Electrolytes in acceptable range.? -Overall poor prognosis due to worsening kidney function. Plan:? Continue to trend with daily BMPs.? Not interested in dialysis. 6)? Bradycardia, stable.? Plan:? Has declined pacemaker. 7)? Chronic venous stasis insufficiency with chronic osteomyelitis, stable appearance Plan:? Supportive care. 8)? DM Type, chronic Plan:? Continue home Lispro and sliding scale coverage.? ACHS blood sugars. Code:? DNR, confirmed with pt and son at admission Diet:? Diabetic diet DVT ppx:? Hold for now due to potential bleeding Dispo:? Home with hospice tomorrow. POLST form to be completed by PCP prior to discharge. Quality VTE Deep Vein Thrombosis/Pulmonary Embolism Present on Admission: No
[2021-07-13] MEDS: FERROUS SULFATE 325 MG TABLET PO (08:46)
[2021-07-13] MEDS: AMLODIPINE 5 MG TABLET 2.5 MG PO (08:46)
[2021-07-13] MEDS: PYRIDOXINE (VITAMIN B6) 50 MG TABLET 100 MG PO (08:49)
[2021-07-13] MEDS: CHOLECALCIFEROL (VITAMIN D3) 1,000 UNIT TABLET 2000 UNIT PO (08:49)
[2021-07-13] MEDS: ASPIRIN EC 81 MG TABLET PO (08:49)
[2021-07-13] MEDS: TORSEMIDE 10 MG TABLET 20 MG PO (08:50)
[2021-07-13] MEDS: INSULIN LISPRO 100 UNIT/ML 3ML VIAL SUBCUT ×4 (08:53→20:35)
[2021-07-13] MEDS: SODIUM CHLORIDE 0.9% FLUSH 10 ML IV ×2 (08:53→20:39)
[2021-07-13 08:55] VITALS: O2SAT 95
--- NOTE | 2021-07-13 10:59 | CM.DPC ---
DCP Cont: SW spoke to Velma at [facility] and confirmed that DME on the schedule for delivery to pt's home tomorrow 07/14/21 but time unknown until [facility] makes their schedule in the morning and [facility] RN to open pt to service 07/15/21. SW placed POLST form on chart and alerted RN that weekend provider (Dr. Thomas?) would be helpful if they complete POLST form with pt/family today towards transport likely BLS tomorrow. Plan: SW to follow closely for POLST form to be completed for anticipated need of BLS at discharge vs family transport. Jen Yoon MSW
--- NOTE | 2021-07-13 16:37 | PC.NURSE ---
Day shift: Dr Riki Thomas called regarding Pt's IV site being . OK to d/c them if Pt wants them taken out at this time..
--- NOTE | 2021-07-13 16:54 | PC.NURSE ---
Day shift: Pt did want his IV removed at this time. Both have been removed.
[2021-07-13 20:00] VITALS: BP 147/66; PULSE 67; RESP 18; TEMP 36.1; O2SAT 96
--- NOTE | 2021-07-14 07:40 | P.DS_ITS ---
History of Present Illness History of Present Illness Date Patient Seen: 07/14/21 Time Patient Seen: 07:41 Chief complaint: weakness Narrative: Pt is an 86yo man with CKD, bradycardia, CAD, depression, HTN, GERD, chronic osteomyelitis, DM Type 2, and hx of prostate cancer who presented with abdominal pain and weakness.? The pt reports that he has been feeling progressively weaker for quite some time.? This has been significantly worse for the past couple days.? His son is currently visiting, and notes that the pt spends nearly all day in his recliner, where he sleeps as well.? The pt reports this morning he developed significant abdominal pain.? It was centrally located and did not radiate.? He had his home health aid assist him to the restroom, but he was unable to have a BM or urinate.? He then went to rise from the toilet to his walker, but was unable to due to profound weakness.? His son was contacted, and the pt was ultimately brought to the ED for evaluation.? The pt reports that the abdominal pain was acute in onset, and a strong aching sensation.? He denies any recent dysuria.? He denies any change in his BMs, but reports that he is chronically mildly constipated.? He had mild nausea, but this is now resolved.? He now states that his abdominal pain is nearly resolved. The pt also reports that he has been feeling progressively more SOB for quite some time.? He is unable to lay back to sleep, and has been sleeping nearly upright in his recliner.? He is only able to ambulate very short distances.? The pt overall is feeling like he has declined significantly recently, and he just wants to . from Dr. Lewis's H&P 07/09/2021 Discharge Providers Provider Date of admission: 07/09/21 15:54 Discharge Date: 07/14/21 Primary care physician: Nieves Lewis MD Consults: 07/09/21 13:27 Consult to VENDING MACHINE MECHANIC - Clinical Nurse Manager Stat Comment: VENDING MACHINE MECHANIC Consult needed for:: Community Health Res Need 07/09/21 19:37 Consult to Occupational Therapy Evaluate & Treat Comment: Physician Instructions: Evaluate and treat Consult to Physical Therapy Evaluate & Treat Comment: Physician Instructions: Evaluate and Treat Discharge provider: Gregorio Aguilar MD Summary Hospital Course Discharge Diagnosis: 1. Acute kidney injury 2. Chronic renal failure stage 4, progressing to end-stage renal failure 3. Upper GI bleeding 4. Acute blood loss anemia secondary to upper GI bleed 5. Acute duodenal ulcer with GI bleed 6. Acute gastritis 7. Urethral stricture 8. Bradycardia 9. Diabetes type 2 on insulin 10. Essential hypertension 11. Chronic osteomyelitis 12. Chronic peripheral edema/venous stasis Hospital Course: Patient was admitted to the hospital from the ER as above He was evaluated by General surgery and subsequently underwent upper endoscopy. This demonstrated several small duodenal ulcers as well as gastritis. He was treated aggressively from the start with parental proton pump inhibitors. Did receive transfusion of several units of packed red cells Despite this his renal function which was worse than baseline admission with evidence of significant uremia with elevated BUN etcetera did not really improved. Discussion was held with patient and family and it was elected to discontinue aggressive treatment as it seems likely his renal failure is progressive and he is not interested in renal replacement therapy. Therefore with the assistance of care management department patient was evaluated for possible hospice referral. Hospice agreed to manage patient and he was able to be discharged by the date of discharge Patient's renal function is essentially unchanged Patient's blood counts were improved he will continue on treatment for his chronic medical issues including his diabetes hypertension and continue on proton pump inhibitor therapy to help heal his gastritis/duodenal ulcers for comfort to enable him to take advantage of whatever time he has left, as his renal disease will likely end his life. Medications for issues that will not enhance his quality of life during this terminal phase of his life will be discontinued. For instance I will discontinue his vitamin supplements certainly does not need an aspirin be given his bleeding does not need statin therapy for his lipids etcetera I held a very long discussion with patient and his son who is with him here today in the room and I think were all on the same page regarding this Status at Discharge Cognitive/behavioral status at discharge: at baseline, oriented Functional status at discharge: uses cane/walker Overall status at discharge: patient is not back to baseline Time Spent with Patient Time spent: Greater than 30 minutes Exam Vital Signs (past 8 hours): Oxygen Delivery Method Nasal Cannula Oxygen Flow Rate 0 Objective Labs Result Diagrams: 07/13/21 06:03 07/13/21 06:03 [facility] Medical History Anemia (2009) CHF (congestive heart failure) CKD (chronic kidney disease) stage 4, GFR 15-29 ml/min Diabetes mellitus (1997) Diabetic nephropathy Edema Foot pain (2002) Gastric ulcer (1966) Hearing loss (1935) History of chronic skin ulcer History of malignant neoplasm of prostate History of urethral stricture Hypertension Infectious disease (2011) Kidney failure Lumbar spine pain Osteomyelitis (2011) Peripheral neuropathy (2002) Prostate cancer (1998) Urethral stricture 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 Urinary incontinence Urinary incontinence, mixed Surgical History Anesthesia complication History of cataract removal with insertion of prosthetic lens (2012) History of lumbar discectomy History of lumbar laminectomy History of prostate surgery (1998) History of surgery (1951) History of tonsillectomy and adenoidectomy (1947) Hx of cystoscopy (10/17/19) Family History Father Cancer Mother Heart disease Hypertension Sister Diabetes mellitus Social History household members: spouse Smoking Status: Former smoker Tobacco: How many years used: 30 alcohol intake: current Discharge Plan Discharge Plan Patient Disposition: Hospice - Home Discharge orders & Medications Prescriptions: New omeprazole 40 mg capsule,delayed release(DR/EC) 40 mg PO BID Qty: 60 0RF Continued Spiriva Respimat 2.5 mcg/actuation mist 2 puff INHALATION PRN PRN (Reason: Bronchospasm) 0RF insulin lispro [Humalog KwikPen Insulin] 100 unit/mL insulin pen 10 unit SUBCUT DAILY Qty: 15 0RF Rx Instructions: 10U in am if Blood Sugar above 130 ferrous sulfate 324 mg (65 mg iron) tablet,delayed release (DR/EC) 324 mg PO DAILY Qty: 30 5RF Rx Instructions: 32mg torsemide 20 mg tablet See Rx Instructions .ROUTE .COMPLEX Qty: 60 3RF Dose Instruction: TAKE 2 TABLETS BY MOUTH EVERY MORNING Rx Instructions: TAKE 2 TABLETS BY MOUTH EVERY MORNING fexofenadine 180 mg Tablet 180 mg PO DAILY PRN (Reason: Allergy Symptoms) 0RF felodipine 2.5 mg Tablet Extended Release 24 Hr 2.5 mg PO DAILY 0RF Changed Humulin N NPH U-100 Insulin 100 unit/mL suspension 8 unit SUBCUT DAILY Qty: 10 3RF Rx Instructions: In AM with breakfast Discontinued aspirin 81 MG tablet,delayed release (DR/EC) 81 mg PO QDAY Qty: 30 0RF pyridoxine (vitamin B6) 100 MG tablet 100 mg PO QDAY Qty: 30 11RF cholecalciferol (vitamin D3) [Vitamin D3] 2,000 UNIT capsule 2,000 unit PO QDAY Qty: 30 11RF metoprolol succinate 50 mg tablet extended release 24 hr 50 mg PO DAILY 0RF cyanocobalamin (vitamin B-12) [Vitamin B-12] 1,000 mcg Tablet 1,000 mcg PO DAILY 0RF oxybutynin chloride 5 mg Tablet 5 mg PO BEDTIME PRN (Reason: Bladder Spasms) 0RF calcitriol 0.25 mcg Capsule 0.25 mcg PO DAILY 0RF rosuvastatin 20 mg Capsule, Sprinkle 20 mg PO DAILY 0RF famotidine [Pepcid] 20 mg Tablet 20 mg PO PRN PRN (Reason: Acid Reflux) 0RF doxycycline monohydrate 100 mg capsule 100 mg PO BID 0RF No Action (DME) E-Z Spacer spacer See Dose Instructions .ROUTE .MEDSUPPLY Qty: 1 0RF Dose Instruction: As directed Rx Instructions: As directed (DME) spirometers and accessories device See Dose Instructions .ROUTE .MEDSUPPLY Qty: 1 0RF Dose Instruction: As directed Rx Instructions: incentive spirmotere as directed qid (DME) Syringes 0.3ml 29 gauge 0 .Route .MEDSUPPLY Qty: 100 1RF Dose Instruction: As directed Rx Instructions: As directed (DME) BD insulin pen needle UF short 31 gauge 5/16 Qty: 100 5RF Dose Instruction: As directed Rx Instructions: use to inject insulin up to four times a day (DME) insulin syr/ndl U100 half essie 0.5 mL 31 gauge x 5/16 syringe See Rx Instructions .ROUTE .MEDSUPPLY Qty: 100 0RF Rx Instructions: use to injecti insulin four times a day (DME) Disabled Parking Permit See Rx Instructions .Route .MEDSUPPLY Qty: 1 0RF Rx Instructions: My patient can not walk more than 200 feet without stopping to rest and must use an assistive device. Walking is severely limited due to arthritic, neurological and orthopedic condition. (DME) Diabetic Footwear and Insoles See Rx Instructions .Route .MEDSUPPLY Qty: 1 0RF Rx Instructions: As directed (DME) One Touch Verio Glucose Test Strips See Rx Instructions .Route .MEDSUPPLY Qty: 180 3RF Dose Instruction: test blood sugar 1-2 times daily ; Rx Instructions: test blood sugar 1-2 times daily ; (DME) lancing device [Auto-Lancets] Misc SEE INSTRUCTIONS 0RF Follow up/Referrals: Essie Watson MD [Physician] - Nieves Lewis MD [Primary Care Provider] - Discharge Health Status Multidrug resistant organism: No MDRO Diet/Activity/Treatments Diet: Diet as Tolerated and Carb-consistent/Diabetic Discharge Data Primary Care Provider: Nieves Lewis Quality VTE Deep Vein Thrombosis/Pulmonary Embolism Present on Admission: No
[2021-07-14] MEDS: INSULIN LISPRO 100 UNIT/ML 3ML VIAL SUBCUT ×2 (08:23→12:28)
[2021-07-14] MEDS: CHOLECALCIFEROL (VITAMIN D3) 1,000 UNIT TABLET 2000 UNIT PO (08:25)
[2021-07-14] MEDS: PYRIDOXINE (VITAMIN B6) 50 MG TABLET 100 MG PO (08:25)
[2021-07-14] MEDS: ASPIRIN EC 81 MG TABLET PO (08:25)
[2021-07-14] MEDS: FERROUS SULFATE 325 MG TABLET PO (08:25)
[2021-07-14] MEDS: AMLODIPINE 5 MG TABLET 2.5 MG PO (08:25)
[2021-07-14] MEDS: TORSEMIDE 10 MG TABLET 20 MG PO (08:25)
--- NOTE | 2021-07-14 08:46 | CM.DPC ---
Addendum entered by SHAE Mcguire 07/14/21 15:01: ADD: Per RN, pt was successfully taken down to family POV and discharged home since DME had been delivered to pt's home and son and DIL were there for additional assist. BF Original Note: DCP Discharge Home with Hospice Per MD, pt is stable for d/c home with family and [facility] today and had lengthy discussion bedside with pt and son. SW met bedside with pt and son Francisco [phone] and confirmed they are agreeable with d/c to home today but still awaiting to hear a timeframe from [facility] on delivery time of DME which will also include a w/c. Pt has been sitting up in the chair the last two days and per RN who just assisted pt to bedside commode from chair, pt and son feel comfortable with likely plan of transport home via family POV and do not feel BLS transport needed now and aware that BLS would likely not be fully covered by insurance. JOSHUA faxed d/c summary to [facility] to review and called to alert Aditi to pt d/c home today once DME delivered and she plans to reach out to family again later today to check on their progress with getting PP CG in place for additional assist. JOSHUA updated RN. Plan: SW to follow closely for plan of pt d/c home via family POV after DME delivered today. SHAE Mcguire
[2021-07-14 10:41] VITALS: BP 128/60; PULSE 66; RESP 16; TEMP 36.5; O2SAT 98
[2021-07-14] MEDS: SILVER SULFADIAZINE 1% CREAM 50 GM 1 APPLIC TOP (11:23)
[2021-07-14] MEDS: NYSTATIN POWDER 15GM 1 APPLIC TOP (11:23)
== END 2021-07-14 14:15 | disposition hospice, home (50) | DRG 378 ==
LOC: ED 15:20 → AC 07-10 07:47
PROVIDERS: Student in an Organized Health Care Education/Training Program; Surgery; Admitting Provider Family Medicine; Emergency Provider Emergency Medicine; Family Provider Family Medicine; PCP Family Medicine; Referring Provider Emergency Medicine; Visit Provider Family Medicine
PROC: 0DJ08ZZ Inspection of Upper Intestinal Tract, Via Natural or Artificial Opening Endoscopic (ICD-10-PCS; CPT 43235; principal; 2021-07-10 16:00)
DX: K26.4 Chronic or unspecified duodenal ulcer with hemorrhage (principal); D62 Acute posthemorrhagic anemia; N18.4 Chronic kidney disease, stage 4 (severe); K29.71 Gastritis, unspecified, with bleeding; I12.9 Hypertensive chronic kidney disease with stage 1 through stage 4 chronic kidney disease, or unspecified chronic kidney disease; I25.10 Atherosclerotic heart disease of native coronary artery without angina pectoris; E11.22 Type 2 diabetes mellitus with diabetic chronic kidney disease; I87.8 Other specified disorders of veins; K21.9 Gastro-esophageal reflux disease without esophagitis; Z20.822 Contact with and (suspected) exposure to COVID-19; Z79.4 Long term (current) use of insulin; Z66 Do not resuscitate; Z87.891 Personal history of nicotine dependence
CPT/HCPCS: 36415; 36430; 71045; 74176; 78582; 80048; 80053; 81001; 82550; 82962; 83690; 84484; 85025; 86850; 86900; 86901; 87635; 93005; 94640; 94760; 97162; 99222; 99232; 99238; 99283; 99284; A9539; A9540; C9803; P9016; A9270; C9113; J0330; J1170; J1815; J1940; J2704; J3010